=== PATIENT | female | born 1960 | race Caucasian/White ===

== ENCOUNTER 2017-06-02 10:49 | Emergency (ER) | payer MEDICARE, MEDICAID ==
[2017-06-02] MEDS ORDERED: Cyclobenzaprine 10 MG Tab PO ONE (11:20)
[2017-06-02] MEDS ORDERED: Ketorolac 60 MG/2 ML SDV IM ONE (11:20)
--- NOTE | 2017-06-02 11:24 | EDM.PDOC ---
ED HPI GENERAL MEDICAL PROBLEM - General Chief Complaint: Back Pain or Injury Stated Complaint: BACK PAIN ALSO DIZZY Time Seen by Provider: 06/02/17 11:21 Source of Information: Reports: Patient, Old Records, RN Notes Reviewed History Limitations: Reports: No Limitations - History of Present Illness INITIAL COMMENTS - FREE TEXT/NARRATIVE: 56-year-old female presents emergency department day complaint of low back pain , she has a history of lumbar surgery has been dealing with chronic back pain for several years follows with the pain clinic for new pain clinic in [facility] review of records reveals she was on morphine 3 times a day has been weaned down to 1 time a day is trying to get a consultation with a spine surgeon. She states her pain is worse today she is been out of her morphine for the last couple of days no loss of bowel or bladder no nausea vomiting does feel dizzy Lower Back Pain Score (Numeric/FACES): 9 - Related Data Allergies Allergy/AdvReac Type Severity Reaction Status Date / Time gabapentin AdvReac Delusions Verified 05/06/16 08:18 nalbuphine [From Nubain] AdvReac Hypertensio Verified 05/06/16 08:18 n Home Meds: Home Meds Calcium Carbonate/Vitamin D3 [Calcium 600 + Vit D 200] 1 each PO BID 05/05/16 [ History] FLUoxetine HCl [Prozac] 60 mg PO DAILY 05/05/16 [History] Fenofibrate 160 mg PO DAILY 05/05/16 [History] Furosemide [Lasix] 40 mg PO DAILY 05/05/16 [History] Insulin Degludec [Tresiba Flextouch U-100] 33 unit SQ DAILY 05/05/16 [History] Levothyroxine Sodium [Synthroid] 175 mcg PO DAILY 05/05/16 [History] Multivitamin [Multi-Vitamin Daily] 1 each PO DAILY 05/05/16 [History] Omeprazole Magnesium [Prilosec Otc] 20 mg PO DAILY 05/05/16 [History] Polyethylene Glycol 3350 [MiraLAX] 17 gm PO DAILY PRN 05/05/16 [History] SitaGLIPtin [Januvia] 100 mg PO DAILY 05/05/16 [History] Topiramate [Topamax] 50 mg PO DAILY 05/05/16 [History] atorvaSTATin [Lipitor] 80 mg PO BEDTIME 05/05/16 [History] Diazepam [Valium] 5 mg PO BID PRN 06/02/17 [History] Ondansetron HCl [Zofran] 4 mg PO TID PRN 06/02/17 [History] Topiramate [Topamax] 50 mg PO BEDTIME 06/02/17 [History] Zolpidem Tartrate [Ambien] 5 mg PO BEDTIME 06/02/17 [History] Past Medical History Cardiovascular History: Reports: High Cholesterol, Hypertension Gastrointestinal History: Reports: Chronic Constipation, Other (See Below) Other Gastrointestinal History: reflux necrotizing fasciitis(hospitalized for aprox 1 year) 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: Reports: , Spontaneous Musculoskeletal History: Reports: Fracture, Other (See Below) Other Musculoskeletal History: clavicle chronic painsyndrome Neurological History: Reports: CVA, Neuropathy, Diabetic Psychiatric History: Reports: Anxiety, Depression Endocrine/Metabolic History: Reports: Diabetes, Type II, Hypothyroidism - Infectious Disease History Infectious Disease History: Reports: Chicken Pox - Past Surgical History Female Surgical History: Reports: Hysterectomy, Salpingo-Oophorectomy Musculoskeletal Surgical History: Reports: Other (See Below) Social & Family History - Tobacco Use Smoking Status *Q: Current Every Day Smoker Years of Tobacco use: 30 Packs/Tins Daily: 1 Used Tobacco, but Quit: No Second Hand Smoke Exposure: Yes - Caffeine Use Caffeine Use: Reports: Coffee, Energy Drinks, Tea - Recreational Drug Use Recreational Drug Use: Yes ED ROS GENERAL - Review of Systems Review Of Systems: See Below Constitutional: Reports: No Symptoms Respiratory: Reports: No Symptoms Cardiovascular: Reports: No Symptoms GI/Abdominal: Reports: No Symptoms Musculoskeletal: Reports: Back Pain Neurological: Reports: No Symptoms ED EXAM,LOWER BACK PAIN/INJURY - Physical Exam Exam: See Below Exam Limited By: No Limitations General Appearance: Alert, WD/WN, No Apparent Distress Respiratory/Chest: No Respiratory Distress Back Exam: Normal Inspection, Decreased Range of Motion, Muscle Spasm, Paraspinal Tenderness. No: CVA Tenderness (R), CVA Tenderness (L), Vertebral Tenderness Course - Vital Signs Last Recorded V/S: Last Vital Signs Temp 96.7 F 06/02/17 11:05 Pulse 85 06/02/17 11:05 Resp 18 06/02/17 11:05 BP 184/76 H 06/02/17 11:05 Pulse Ox 99 06/02/17 11:05 - Orders/Labs/Meds Labs: Laboratory Tests 06/02/17 06/02/17 Range/Units 11:37 11:37 Urine Color Yellow Urine Appearance Slightly cloudy Urine pH 7.0 (4.5-8.0) Ur Specific [place] 1.010 (1.008-1.030) Urine Protein Negative (NEGATIVE) mg/dL Urine Glucose (UA) Normal (NEGATIVE) mg/dL Urine Ketones Negative (NEGATIVE) mg/dL Urine Occult Blood Negative (NEGATIVE) Urine Nitrite Negative (NEGATIVE) Urine Bilirubin Negative (NEGATIVE) Urine Urobilinogen Normal (NORMAL) mg/dL Ur Leukocyte Esterase Negative (NEGATIVE) Urine RBC 0-5 (0-5) Urine WBC 0-5 (0-5) Ur Epithelial Cells Rare Amorphous Sediment Not seen Urine Bacteria Rare Urine Mucus Not seen Urine Opiates Screen Negative (NEGATIVE) Ur Oxycodone Screen Negative (NEGATIVE) Urine Methadone Screen Negative (NEGATIVE) Ur Propoxyphene Screen Negative (NEGATIVE) Ur Barbiturates Screen Negative (NEGATIVE) Ur Tricyclics Screen Negative (NEGATIVE) Ur Phencyclidine Scrn Negative (NEGATIVE) Ur Amphetamine Screen Negative (NEGATIVE) U Methamphetamines Scrn Negative (NEGATIVE) Urine MDMA Screen Negative (NEGATIVE) U Benzodiazepines Scrn Positive H (NEGATIVE) U Cocaine Metab Screen Negative (NEGATIVE) U Marijuana (THC) Screen Negative (NEGATIVE) Meds: Medications Discontinued Medications Generic Name Dose Route Start Last Admin Trade Name Freq PRN Reason Stop Dose Admin Cyclobenzaprine HCl 10 mg 06/02/17 11:20 06/02/17 11:28 Flexeril PO 06/02/17 11:21 10 mg ONETIME ONE Administration Hydromorphone HCl 1 mg 06/02/17 12:11 06/02/17 12:21 Dilaudid IM 06/02/17 12:12 1 mg ONETIME ONE Administration Ketorolac Tromethamine 60 mg 06/02/17 11:20 06/02/17 11:27 Toradol IM 06/02/17 11:21 60 mg ONETIME ONE Administration Departure - Departure Time of Disposition: 12:52 Disposition: Home, Self-Care 01 Condition: Fair Clinical Impression: Back pain Qualifiers: Back pain location: low back pain Chronicity: chronic Back pain laterality: bilateral Sciatica presence: without sciatica Qualified Code(s): M54.5 - Low back pain; G89.29 - Other chronic pain; G89.29 - Other chronic pain - Discharge Information Referrals: Adalid Lee PA-C [Primary Care Provider] - Forms: ED Department Discharge Additional Instructions: Please keep your follow-up appointment with your pain care provider - Assessment/Plan Plan: Assessment Acuity = chronic Site and laterality = exacerbation of back pain Etiology = unknown etiology Manifestations = none Location of injury = Home Lab values = none Plan She had some improvement combination Flexeril, Dilaudid and Toradol her pain has improved temporarily she is to follow-up with her pain care physician next week Patient was in agreement with the plan all questions were answered, they were instructed to return to the emergency department or call for worsening symptoms. This note was dictated using [employer] voice recognition software please call with any questions.
[2017-06-02 11:33] VITALS: BP 184/76
[2017-06-02] MEDS ORDERED: HYDROmorphone 1 MG/ML Syringe IM ONE (12:11)
== END 2017-06-02 13:02 | disposition home or self-care (01) ==
LOC: JP.ED 10:49
DX: G89.29 Other chronic pain (principal); M54.5 Low back pain; E11.9 Type 2 diabetes mellitus without complications; E11.40 Type 2 diabetes mellitus with diabetic neuropathy, unspecified; F17.210 Nicotine dependence, cigarettes, uncomplicated; Z88.8 Allergy status to other drugs, medicaments and biological substances; Z79.4 Long term (current) use of insulin; Z79.899 Other long term (current) drug therapy
CPT/HCPCS: 80305; 81001; 96372; 99283; 99284; A9270; J1170; J1885

== ENCOUNTER 2017-08-01 06:35 | Inpatient (IN) | payer MEDICARE, MEDICAID ==
[2017-08-01] MEDS ORDERED: Povidone-Iodine 10% Soln 118.25 ML Bottle ONE (06:41)
[2017-08-01] MEDS ORDERED: Thrombin (Bovine) 5,000 Unit Kit ONE (06:41)
[2017-08-01] MEDS ORDERED: Acetaminophen 500 MG Tab PO ONE (07:00)
[2017-08-01] MEDS: Scopolamine 1.5 MG Transdermal Patch TOP SCH (07:28)
[2017-08-01] MEDS ORDERED: ceFAZolin 2 GM in Premix Bag 1 BAG IV ONE (07:30)
[2017-08-01] MEDS ORDERED: HYDROmorphone 1 MG/ML Syringe IM ONE (07:40)
[2017-08-01] MEDS: Lactated Ringers 1,000 ML IV SCH (07:42)
[2017-08-01] MEDS ORDERED: HYDROmorphone/Normal Saline 15 MG/30 ML PCA IV PRN (07:45)
[2017-08-01] MEDS ORDERED: Naloxone 0.4 MG/ML SDV IVPUSH PRN (07:45)
[2017-08-01] MEDS ORDERED: Naloxone 0.4 MG/ML SDV IV PRN (07:49)
[2017-08-01] MEDS ORDERED: Ondansetron 4 MG/2 ML SDV ONE (09:10)
[2017-08-01] MEDS ORDERED: Midazolam 1 MG/ML 2 ML SDV ONE (09:10)
[2017-08-01] MEDS ORDERED: Dexamethasone 4 MG/ML SDV ONE (09:10)
[2017-08-01] MEDS ORDERED: Rocuronium 50 MG/5 ML Vial ONE (09:10)
[2017-08-01] MEDS ORDERED: Propofol 200 MG/20 ML SDV ONE (09:10)
[2017-08-01] MEDS ORDERED: Succinylcholine/Normal Saline 200 MG/10 ML Syringe ONE (09:10)
[2017-08-01] MEDS ORDERED: fentaNYL 250 MCG/5 ML SDV ONE ×2 (09:10→10:58)
[2017-08-01] MEDS ORDERED: Neostigmine Methylsulfate 1 MG/ML 5 ML Syringe ONE (09:14)
[2017-08-01] MEDS ORDERED: Ketamine 500 MG/5 ML MDV IV SCH (09:35)
[2017-08-01] MEDS ORDERED: Meropenem 500 MG SDV ONE (10:46)
[2017-08-01] MEDS ORDERED: Linezolid 200 MG/100 ML Bag IRR ONE (10:53)
[2017-08-01] MEDS ORDERED: Lactated Ringers 1,000 ML ONE (11:46)
[2017-08-01] MEDS ORDERED: Ondansetron 4 MG/2 ML SDV IVPUSH PRN (14:12)
[2017-08-01] MEDS ORDERED: hydrOXYzine HCl 100 MG/2 ML SDV IM PRN (14:12)
[2017-08-01] MEDS ORDERED: hydrOXYzine HCl 25 MG Tab PO PRN (14:12)
[2017-08-01] MEDS ORDERED: Albuterol/Ipratropium 3.0-0.5 MG/3 ML Neb Soln INH PRN (14:13)
[2017-08-01] MEDS ORDERED: Glucose Gel 15 GM in 37.5 GM Tube PO PRN (14:15)
[2017-08-01] MEDS ORDERED: Glucagon,Human Recombinant 1 MG Vial IM PRN (14:15)
[2017-08-01] MEDS ORDERED: 50% Dextrose in Water 50 ML Syringe IVPUSH PRN (14:15)
[2017-08-01] MEDS: Albuterol/Ipratropium 3.0-0.5 MG/3 ML Neb Soln INH SCH ×2 (15:16→20:42)
[2017-08-01] MEDS: VERIFY SCOPOLAMINE PATCH TOP SCH (16:50)
[2017-08-01] MEDS: FLUoxetine 20 MG Cap PO SCH (16:52)
[2017-08-01] MEDS: Dextrose 5%-Lactated Ringers 1,000 ML IV SCH ×2 (16:52→23:22)
[2017-08-01] MEDS: ceFAZolin 2 GM in Sodium Chloride 0.9% 50 ML IV SCH (16:52)
[2017-08-01] MEDS: Pantoprazole 40 MG Vial IV SCH (16:52)
[2017-08-01] MEDS: Topiramate 25 MG Tab PO SCH (20:42)
[2017-08-01] MEDS ORDERED: Insulin Detemir 100 Units/ML 3 ML Pen SUBCUT SCH (21:00)
--- NOTE | 2017-08-01 21:30 | OR ---
DATE OF PROCEDURE: 08/01/2017 PREOPERATIVE DIAGNOSES: 1. Lumbar foraminal stenosis, L4-5. 2. Spondylolisthesis, L4-5. 3. Lumbar radiculopathy, L4-5. POSTOPERATIVE DIAGNOSES: 1. Lumbar foraminal stenosis, L4-5. 2. Spondylolisthesis, L4-5. 3. Lumbar radiculopathy, L4-5. PROCEDURE: Anterior lumbar interbody fusion, L4-5. CO-SURGEON: Ahmet Wilson MD. ANESTHESIA: General endotracheal intubation. FLUIDS: Lactated Ringer solution. ESTIMATED BLOOD LOSS: 200 mL. COMPLICATION: None. SPECIMEN: None. DISCHARGE DISPOSITION: Stable to PACU. INSTRUMENTATION: Globus Magnify 8 to 11 8 degree implant with one 30 mm screw into L4 and two 20 mm screws into L5. INDICATIONS FOR THE PROCEDURE: The patient was seen preoperatively in the clinic. She had a symptomatic lumbar spondylolisthesis with low back pain and radicular symptoms. Preoperative imaging confirmed the above-mentioned diagnosis. Risks and benefits of the procedure were explained to the patient. Informed consent was obtained. The patient failed nonoperative treatment. DETAILS OF PROCEDURE: The patient was seen preoperatively by myself and the anesthesia staff in the preop holding area where the operative site was marked. She was brought to the operative suite by Anesthesia staff where general anesthesia was administered. A time-out was called identifying the correct patient, the correct procedure, the correct site, and antibiotics had been in with appropriate period of time. Please see Dr. Ahmet Wilson's note for exposure. After adequate exposure was obtained, I used Bovie electrocautery to go through the anterior annulus and then used a deep 15 blade to go through the annular fibers as well. I then used a narrow Thayer to go along the endplates of the inferior endplate of L4 and superior endplate of L5 and then used Kerrison rongeurs as well as curettes to remove the annulus as well as any disk material. I then used a 9 spacer and inserted that and confirmed the depth of the spacer on lateral x-ray and also evaluated my medial to lateral position. The patient was scoliotic so actually she did tilt to the left anteriorly aiding in our exposure. I did undermine some of the disk underneath the lateral right retractor. I then packed my implant with Signify bone graft and then inserted my spacer and then under direct fluoroscopic visualization expanded it. This provided good distraction. The posterior aspect of the implant was just shy of the neural foramen and I confirmed that we had good position on my AP view. I then awl'd, tapped, and placed my screws as mentioned above and took final films. Please see Dr. Ahmet Wilson's notes for closure. Zen Wilson DO /[id number]
[2017-08-02] MEDS: ceFAZolin 2 GM in Sodium Chloride 0.9% 50 ML IV SCH ×2 (01:01→08:14)
[2017-08-02] MEDS: Dextrose 5%-Lactated Ringers 1,000 ML IV SCH ×3 (05:39→22:16)
[2017-08-02] MEDS: Albuterol/Ipratropium 3.0-0.5 MG/3 ML Neb Soln INH SCH ×4 (07:18→21:06)
[2017-08-02] MEDS: FLUoxetine 20 MG Cap PO SCH (08:15)
[2017-08-02] MEDS: Acetaminophen/oxyCODONE 325-5 MG Tab PO PRN ×4 (08:47→21:06)
[2017-08-02] MEDS: Insulin Detemir 100 Units/ML 3 ML Pen SUBCUT SCH (08:48)
[2017-08-02] MEDS: Cyclobenzaprine 10 MG Tab PO PRN ×2 (11:19→19:28)
[2017-08-02] MEDS: Insulin Aspart 100 Units/ML 3 ML Pen SUBCUT PRN ×3 (12:45→21:09)
--- NOTE | 2017-08-02 13:26 | PN ---
DATE OF SERVICE: 08/02/2017 SUBJECTIVE: Kandis is postop day one. She states her pain is controlled. She has been up in the chair and has walked. Vital signs have been stable. Blood sugars have been 218, 157. She was on Levemir 33 units but decreased it because she was having hypoglycemic reactions. REVIEW OF SYSTEMS: Remainder of review of systems negative for any pertinent positives and negatives. OBJECTIVE: GENERAL: Kandis Rodriguez is a 56-year-old female. She is sleepy, pain is controlled. VITAL SIGNS: TPR 98.5, 92, 16, blood pressure is 95/52. Oral intake ice chips. Urine output via Hernandez catheter 674. CHEVY drain has put out about 20 mL of a dark red drainage. O2 saturations have been in the lower 90s with 2 L of O2. HEENT: Negative. NECK: Supple. HEART: Regular rate and rhythm. LUNGS: Reveal decreased breath sounds bilaterally. ABDOMEN: Dressings dry and intact. CHEVY drain intact. Abdominal binder is on. EXTREMITIES: Without peripheral edema. ASSESSMENT: Anterior lumbar interbody fusion for L4 and L5, repair of avulsion side left lav secondary to inflammation adjacent to lymph nodes for evulsion for lumbar foraminal stenosis, L4-L5, spondylolisthesis, L4-L5, and lumbar radiculopathy, L4 and L5. Date of surgery is 08/01/2017. PLAN: 1. Discontinue Hernandez catheter. 2. Consistent carb diet 1800 to 2200. 3. Discontinue ORE TRIMMER and continuous pulse ox. 4. Percocet 5/325 mg 1 to 2 every 4 hours p.r.n. pain. 5. Check blood sugars q.i.d. 6. Levemir 30 units at bedtime. 7. Senna Plus 2 tabs p.o. daily. 8. Decrease IV to 100 mL per hour. 9. Good pulmonary toilet. 10.We will evaluate p.r.n. or in a.m. Lia Rojo PA-C /[id number]
[2017-08-02] MEDS: VERIFY SCOPOLAMINE PATCH TOP SCH (13:28)
[2017-08-02] MEDS: Pantoprazole 40 MG Vial IV SCH (16:48)
[2017-08-02] MEDS: Topiramate 25 MG Tab PO SCH (21:20)
[2017-08-02] MEDS: Lactated Ringers 1,000 ML IV SCH (22:10)
[2017-08-02] MEDS ORDERED: Diazepam 5 MG Tab PO PRN (22:21)
[2017-08-03] MEDS: Acetaminophen/oxyCODONE 325-5 MG Tab PO PRN ×5 (02:45→21:01)
[2017-08-03] MEDS ORDERED: FLU Vacc QS 2017-18 (36mos UP)/PF 60 MCG/0.5 ML Syringe IM ONE ×3 (04:15→17:00)
[2017-08-03] MEDS: Albuterol/Ipratropium 3.0-0.5 MG/3 ML Neb Soln INH SCH ×4 (07:29→20:54)
[2017-08-03] MEDS ORDERED: Ibuprofen 400 MG Tab PO PRN (07:30)
--- NOTE | 2017-08-03 07:55 | PCM.SURGPN ---
- General Info Date of Service: 08/03/17 Date of Surgery/Procedure: 08/01/17 POD#: 2 Functional Status: Reports: Pain Controlled, Tolerating Diet, Ambulating, Urinating, New Symptoms (Abdominal pain), Incentive Spirometry - Review of Systems General: Reports: Fever Pulmonary: Reports: Shortness of Breath, Cough, Sputum Cardiovascular: Reports: No Symptoms Gastrointestinal: Reports: Abdominal Pain Genitourinary: Reports: No Symptoms Musculoskeletal: Reports: Back Pain Skin: Reports: No Symptoms Neurological: Reports: No Symptoms Psychiatric: Reports: No Symptoms - Patient Data Vitals - Most Recent: Last Vital Signs Temp 98.9 F 08/03/17 07:17 Pulse 94 08/03/17 07:30 Resp 18 08/03/17 07:17 BP 128/64 08/03/17 07:17 Pulse Ox 95 08/03/17 07:30 Weight - Most Recent: 141 lb 15.996 oz I&O - Last 24 Hours: Intake & Output 08/02/17 08/03/17 08/03/17 22:59 06:59 14:59 Intake Total 715 2835 Output Total 1327 3 Balance -612 2832 Med Orders - Current: Current Medications Albuterol/Ipratropium (Duoneb 3.0-0.5 Mg/3 Ml) 3 ml INH QIDRT [facility] Last Admin: 08/03/17 07:29 Dose: 3 ml Albuterol/Ipratropium (Duoneb 3.0-0.5 Mg/3 Ml) 3 ml INH ASDIRECTED PRN PRN Reason: * Cyclobenzaprine HCl (Flexeril) 10 mg PO Q6H PRN PRN Reason: Muscle Spasm Last Admin: 08/02/17 19:28 Dose: 10 mg Dextrose (Glutose 15) 15 gm PO ASDIRECTED PRN PRN Reason: HYPOGLYCEMIA Dextrose/Water (Dextrose 50% In Water) 50 ml IVPUSH ASDIRECTED PRN PRN Reason: HYPOGLYCEMIA Diazepam (Valium.) 10 mg PO BID PRN PRN Reason: Pain Fluoxetine HCl (Prozac) 60 mg PO DAILY [facility] Last Admin: 08/02/17 08:15 Dose: 60 mg Glucagon (Glucagen) 1 mg IM ASDIRECTED PRN PRN Reason: HYPOGLYCEMIA Hydroxyzine HCl (Vistaril) 100 mg IM Q4H PRN PRN Reason: Pain Hydroxyzine HCl (Atarax) 100 mg PO Q4H PRN PRN Reason: Pain Last Admin: 08/02/17 22:17 Dose: 100 mg Dextrose/Lactated Ringer's (Dextrose 5%-Lactated Ringers) 1,000 mls @ 100 mls/ hr IV ASDIRECTED [facility] Last Admin: 08/02/17 22:16 Dose: 100 mls/hr Ibuprofen (Motrin) 400 mg PO Q6H PRN PRN Reason: Pain/Fever Influenza Virus Vaccine (Fluzone Quad 2998-6141) 60 mcg IM .ONCE ONE Stop: 08/03/17 10:01 Insulin Aspart (Novolog) 0 unit SUBCUT ASDIRECTED PRN; Protocol PRN Reason: LOW CORRECTIONAL DOSE Last Admin: 08/02/17 21:09 Dose: 1 unit Insulin Detemir (Levemir) 30 unit SUBCUT DAILY [facility] Last Admin: 08/02/17 08:48 Dose: 30 units Levothyroxine Sodium (Synthroid) 150 mcg PO DAILY@0730 [facility] Naloxone HCl (Narcan) 0.1 mg IV ASDIRECTED PRN PRN Reason: decreased respiratory rate Verify Scopolamine (Patch) 0 each TOP DAILY [facility] Last Admin: 08/02/17 13:28 Dose: Not Given Ondansetron HCl (Zofran) 4 mg IVPUSH Q4H PRN PRN Reason: Nausea Oxycodone/Acetaminophen (Percocet 325-5 Mg) 1 - 2 tab PO Q4H PRN PRN Reason: paiin Last Admin: 08/03/17 07:21 Dose: 2 tab Pantoprazole Sodium (Protonix) 40 mg PO Q24H [facility] Scopolamine (Transderm-Scop) 1.5 mg TOP Q72H [facility] Last Admin: 08/01/17 07:28 Dose: 1.5 mg Senna/Docusate Sodium (Senna Plus) 2 tab PO DAILY [facility] Last Admin: 08/02/17 11:13 Dose: 2 tab Topiramate (Topamax) 50 mg PO BEDTIME [facility] Last Admin: 08/02/17 21:20 Dose: 50 mg Discontinued Medications Acetaminophen (Tylenol Extra Strength) 1,000 mg PO ONETIME ONE Stop: 08/01/17 07:01 Last Admin: 08/01/17 07:28 Dose: 1,000 mg Dexamethasone (Dexamethasone) Confirm Administered Dose 4 mg .ROUTE .STK-MED ONE Stop: 08/01/17 09:11 Fentanyl (Sublimaze) Confirm Administered Dose 250 mcg .ROUTE .STK-MED ONE Stop: 08/01/17 09:11 Fentanyl (Sublimaze) Confirm Administered Dose 250 mcg .ROUTE .STK-MED ONE Stop: 08/01/17 10:59 Glycopyrrolate () Confirm Administered Dose 1 mg .ROUTE .STK-MED ONE Stop: 08/01/17 09:15 Hydromorphone HCl (Dilaudid) 1 mg IM ONETIME ONE Stop: 08/01/17 07:41 Last Admin: 08/01/17 07:48 Dose: 1 mg Hydromorphone HCl (Dilaudid Relocation Coordinator 15 Mg In Ns 30 Ml) 0 mg IV ASDIRECTED PRN; Protocol PRN Reason: Pain Last Admin: 08/01/17 08:02 Dose: 0.3 mg Lactated Ringer's (Ringers, Lactated) 1,000 mls @ 0 mls/hr IV ASDIRECTED [facility] PRN Reason: KVO Last Infusion: 08/02/17 22:10 Dose: Infused Ketamine HCl 100 mg/ Sodium (Chloride) 100 mls @ 14.88 mls/hr IV ASDIRECTED [facility] PRN Reason: 5 MCG/KG/MIN Linezolid (Zyvox) Confirm Administered Dose 100 mls @ as directed .ROUTE .ST- MED ONE Stop: 08/01/17 06:41 Cefazolin Sodium/Dextrose 2 gm (/ Premix) 50 mls @ 100 mls/hr IV ONETIME ONE Stop: 08/01/17 07:59 Last Admin: 08/01/17 10:01 Dose: 100 mls/hr Propofol (Diprivan 100 Ml) Confirm Administered Dose 100 mls @ as directed .ROUTE .STK-MED ONE Stop: 08/01/17 09:11 Lactated Ringer's (Ringers, Lactated) Confirm Administered Dose 1,000 mls @ as directed .ROUTE .STK-MED ONE Stop: 08/01/17 11:47 Dextrose/Lactated Ringer's (Dextrose 5%-Lactated Ringers) 1,000 mls @ 175 mls/ hr IV ASDIRECTED [facility] Last Admin: 08/02/17 05:39 Dose: 175 mls/hr Cefazolin Sodium 2 gm/ Sodium (Chloride) 50 mls @ 100 mls/hr IV Q8H [facility] Stop: 08/02/17 09:29 Last Admin: 08/02/17 08:14 Dose: 100 mls/hr Insulin Detemir (Levemir) 25 unit SUBCUT BEDTIME [facility] Last Admin: 08/01/17 20:46 Dose: 25 units Ketamine HCl (Ketalar) 25 mg IV ASDIRECTED [facility] Levothyroxine Sodium 100 mcg/ (Levothyroxine Sodium 75 mcg) 175 mcg PO DAILY@ 0730 [facility] Last Admin: 08/03/17 07:23 Dose: Not Given Linezolid (Zyvox) 200 mg IRR .STK-MED ONE Stop: 08/01/17 10:54 Last Admin: 08/01/17 10:53 Dose: 200 mg Meropenem (Merrem) Confirm Administered Dose 500 mg .ROUTE .STK-MED ONE Stop: 08/01/17 10:47 Last Admin: 08/01/17 10:53 Dose: 500 mg Midazolam HCl (Versed 1 Mg/Ml) Confirm Administered Dose 2 mg .ROUTE .STK-MED ONE Stop: 08/01/17 09:11 Neostigmine Methylsulfate (Neostigmine) Confirm Administered Dose 5 mg .ROUTE .STK-MED ONE Stop: 08/01/17 09:15 Ondansetron HCl (Zofran) Confirm Administered Dose 4 mg .ROUTE .STK-MED ONE Stop: 08/01/17 09:11 Pantoprazole Sodium (Protonix Iv) 40 mg IV Q24H [facility] Last Admin: 08/02/17 16:48 Dose: 40 mg Povidone Iodine (Betadine 10% Soln) Confirm Administered Dose 1 ml .ROUTE .STK- MED ONE Stop: 08/01/17 06:42 Propofol (Diprivan 20 Ml) Confirm Administered Dose 200 mg .ROUTE .STK-MED ONE Stop: 08/01/17 09:11 Rocuronium [place] (Zemuron) Confirm Administered Dose 50 mg .ROUTE .STK-MED ONE Stop: 08/01/17 09:11 Succinylcholine Chloride (Succinylcholine In Ns Pf) Confirm Administered Dose 200 mg .ROUTE .STK-MED ONE Stop: 08/01/17 09:11 Thrombin (Thrombin-Jmi) Confirm Administered Dose 15,000 unit .ROUTE .STK-MED ONE Stop: 08/01/17 06:42 - Exam Wound/Incisions: Healing Well General: Alert, Oriented, No Acute Distress Neck: Supple Lungs: Other (Bronchial breath sounds of left lower lobe; shallow breaths throughout) Cardiovascular: Regular Rate, Regular Rhythm, No Murmurs GI/Abdominal Exam: Normal Bowel Sounds Skin: Warm, Moist - Problem List Review Problem List Initiated/Reviewed/Updated: Yes - My Orders Last 24 Hours: Active Orders 24 hr Category Date Time Status May Shower [RC] ASDIRECTED Care 08/03/17 07:30 Active Consistent Carbohydrate Diet [DIET] Diet 08/02/17 Breakfast Active Chest 2V [CR] Routine Exams 08/03/17 07:31 Ordered GLUCOSE POC LAB TO COLLECT [POC] QIDACANDBED Lab 08/03/17 11:30 Ordered GLUCOSE POC LAB TO COLLECT [POC] QIDACANDBED Lab 08/03/17 16:30 Ordered GLUCOSE POC LAB TO COLLECT [POC] QIDACANDBED Lab 08/03/17 21:00 Ordered Acetaminophen/oxyCODONE [Percocet 325-5 MG] Med 08/02/17 07:40 Active 1 - 2 tab PO Q4H PRN Alogliptin Benzoate [Alogliptin] Med 08/02/17 09:00 Active 25 mg PO DAILY Dextrose 5%-Lactated Ringers 1,000 ml Med 08/02/17 07:39 Active IV ASDIRECTED Diazepam [Valium] Med 08/02/17 22:21 Active 10 mg PO BID PRN Docusate Sodium/Sennosides [Senna Plus] Med 08/02/17 09:00 Active 2 tab PO DAILY FLU Vacc [id number] 36Mos UP/PF [Fluzone Quad 3993-9461] Med 08/03/17 10:00 Once 60 mcg IM .ONCE ONE Ibuprofen [Motrin] Med 08/03/17 07:30 Active 400 mg PO Q6H PRN Insulin Detemir [Levemir] Med 08/02/17 09:00 Active 30 unit SUBCUT DAILY Levothyroxine [Synthroid] Med 08/03/17 07:45 Active 150 mcg PO DAILY@0730 Pantoprazole [ProTONIX] Med 08/03/17 16:00 Active 40 mg PO Q24H Remove Dressing [OM.PC] Routine Oth 08/03/17 07:30 Ordered Medication Orders Albuterol/Ipratropium (Duoneb 3.0-0.5 Mg/3 Ml) 3 ml INH QIDRT [facility] Last Admin: 08/03/17 07:29 Dose: 3 ml Admin: 08/02/17 21:06 Dose: 3 ml Admin: 08/02/17 14:35 Dose: 3 ml Admin: 08/02/17 11:00 Dose: 3 ml Admin: 08/02/17 07:18 Dose: 3 ml Admin: 08/01/17 20:42 Dose: 3 ml Admin: 08/01/17 15:16 Dose: 3 ml Albuterol/Ipratropium (Duoneb 3.0-0.5 Mg/3 Ml) 3 ml INH ASDIRECTED PRN PRN Reason: * Cyclobenzaprine HCl (Flexeril) 10 mg PO Q6H PRN PRN Reason: Muscle Spasm Last Admin: 08/02/17 19:28 Dose: 10 mg Admin: 08/02/17 11:19 Dose: 10 mg Dextrose (Glutose 15) 15 gm PO ASDIRECTED PRN PRN Reason: HYPOGLYCEMIA Dextrose/Water (Dextrose 50% In Water) 50 ml IVPUSH ASDIRECTED PRN PRN Reason: HYPOGLYCEMIA Diazepam (Valium.) 10 mg PO BID PRN PRN Reason: Pain Fluoxetine HCl (Prozac) 60 mg PO DAILY [facility] Last Admin: 08/02/17 08:15 Dose: 60 mg Admin: 08/01/17 16:52 Dose: 60 mg Glucagon (Glucagen) 1 mg IM ASDIRECTED PRN PRN Reason: HYPOGLYCEMIA Hydroxyzine HCl (Vistaril) 100 mg IM Q4H PRN PRN Reason: Pain Hydroxyzine HCl (Atarax) 100 mg PO Q4H PRN PRN Reason: Pain Last Admin: 08/02/17 22:17 Dose: 100 mg Dextrose/Lactated Ringer's (Dextrose 5%-Lactated Ringers) 1,000 mls @ 100 mls/ hr IV ASDIRECTED [facility] Last Admin: 08/02/17 22:16 Dose: 100 mls/hr Infusion: 08/02/17 22:16 Dose: 100 mls/hr Admin: 08/02/17 12:41 Dose: 100 mls/hr Ibuprofen (Motrin) 400 mg PO Q6H PRN PRN Reason: Pain/Fever Influenza Virus Vaccine (Fluzone Quad 9336-4410) 60 mcg IM .ONCE ONE Stop: 08/03/17 10:01 Insulin Aspart (Novolog) 0 unit SUBCUT ASDIRECTED PRN; Protocol PRN Reason: LOW CORRECTIONAL DOSE Last Admin: 08/02/17 21:09 Dose: 1 unit Admin: 08/02/17 16:49 Dose: 1 unit Admin: 08/02/17 12:45 Dose: 1 unit Insulin Detemir (Levemir) 30 unit SUBCUT DAILY [facility] Last Admin: 08/02/17 08:48 Dose: 30 units Levothyroxine Sodium (Synthroid) 150 mcg PO DAILY@0730 [facility] Naloxone HCl (Narcan) 0.1 mg IV ASDIRECTED PRN PRN Reason: decreased respiratory rate Verify Scopolamine (Patch) 0 each TOP DAILY [facility] Last Admin: 08/02/17 13:28 Dose: Admin: 08/01/17 16:50 Dose: Ondansetron HCl (Zofran) 4 mg IVPUSH Q4H PRN PRN Reason: Nausea Oxycodone/Acetaminophen (Percocet 325-5 Mg) 1 - 2 tab PO Q4H PRN PRN Reason: paiin Last Admin: 08/03/17 07:21 Dose: 2 tab Admin: 08/03/17 02:45 Dose: 2 tab Admin: 08/02/17 21:06 Dose: 2 tab Admin: 08/02/17 16:47 Dose: 2 tab Admin: 08/02/17 12:40 Dose: 2 tab Admin: 08/02/17 08:47 Dose: 2 tab Pantoprazole Sodium (Protonix) 40 mg PO Q24H [facility] Scopolamine (Transderm-Scop) 1.5 mg TOP Q72H [facility] Last Admin: 08/01/17 07:28 Dose: 1.5 mg Senna/Docusate Sodium (Senna Plus) 2 tab PO DAILY [facility] Last Admin: 08/02/17 11:13 Dose: 2 tab Topiramate (Topamax) 50 mg PO BEDTIME [facility] Last Admin: 08/02/17 21:20 Dose: 50 mg Admin: 08/01/17 20:42 Dose: 50 mg - Assessment Assessment (Free Text/Narrative):: Assessment and Plan: Kandis is a 56 yo female POD2 s/p ALIF of L4/L5. She spiked a fever last night to 101.1, which lasted about 5 hours and seems to have come down without any anti- pyretics. She appears somewhat short of breath, admits to coughing, and has bronchial breath sounds of her left lower lobe. These symptoms combined with post-operative fever raise concern for pneumonia. I would recommend a CXR and CBC to further evaluate this and treat appropriately. She has been using incentive spirometry regularly and duonebs have been ordered. This morning she reports new abdominal pain, which is partially alleviated with Percocet. We will add on scheduled Ibuprofen to further manage her pain. She is eating well and passing flatus. She is ambulating frequently. She is urinating well. She says her back pain is well-managed when she is laying down, but is "excruciating" when she sits up or walks around. - Plan Plan (Free Text/Narrative):: *See "Assessment" for Assessment and Plan
[2017-08-03] MEDS: Dextrose 5%-Lactated Ringers 1,000 ML IV SCH ×2 (09:10→18:43)
--- NOTE | 2017-08-03 09:24 | CR ---
Chest 2V HISTORY: Fever COMPARISON: None FINDINGS: Cardiac size and pulmonary vessels normal. No focal infiltrates or effusions. Impression: No acute pulmonary disease.
[2017-08-03] MEDS: Levothyroxine 50 MCG Tab PO SCH (09:55)
[2017-08-03] MEDS: FLUoxetine 20 MG Cap PO SCH (09:57)
[2017-08-03] MEDS: VERIFY SCOPOLAMINE PATCH TOP SCH (09:58)
[2017-08-03] MEDS: Insulin Detemir 100 Units/ML 3 ML Pen SUBCUT SCH (09:59)
--- NOTE | 2017-08-03 11:09 | PCM.PN ---
- General Info Date of Service: 08/03/17 Admission Dx/Problem (Free Text): patient is status postop day 2 of any left. She is doing very well. Patient states that she is having minimal pain at this time. She did run fevers last night up to 101. She continues to work with PT OT for strengthening today. Functional Status: Reports: Pain Controlled, Tolerating Diet, Ambulating, Urinating - Review of Systems General: Reports: No Symptoms - Patient Data Vitals - Most Recent: Last Vital Signs Temp 37.2 C 08/03/17 07:17 Pulse 97 08/03/17 10:49 Resp 18 08/03/17 07:17 BP 128/64 08/03/17 07:17 Pulse Ox 95 08/03/17 10:49 Weight - Most Recent: 141 lb 15.996 oz I&O - Last 24 Hours: Intake & Output 08/02/17 08/03/17 08/03/17 22:59 06:59 14:59 Intake Total 715 2835 Output Total 1327 3 Balance -612 2832 Med Orders - Current: Current Medications Albuterol/Ipratropium (Duoneb 3.0-0.5 Mg/3 Ml) 3 ml INH QIDRT [facility] Last Admin: 08/03/17 10:49 Dose: 3 ml Albuterol/Ipratropium (Duoneb 3.0-0.5 Mg/3 Ml) 3 ml INH ASDIRECTED PRN PRN Reason: * Cyclobenzaprine HCl (Flexeril) 10 mg PO Q6H PRN PRN Reason: Muscle Spasm Last Admin: 08/02/17 19:28 Dose: 10 mg Dextrose (Glutose 15) 15 gm PO ASDIRECTED PRN PRN Reason: HYPOGLYCEMIA Dextrose/Water (Dextrose 50% In Water) 50 ml IVPUSH ASDIRECTED PRN PRN Reason: HYPOGLYCEMIA Diazepam (Valium.) 10 mg PO BID PRN PRN Reason: Pain Fluoxetine HCl (Prozac) 60 mg PO DAILY [facility] Last Admin: 08/03/17 09:57 Dose: 60 mg Glucagon (Glucagen) 1 mg IM ASDIRECTED PRN PRN Reason: HYPOGLYCEMIA Hydroxyzine HCl (Vistaril) 100 mg IM Q4H PRN PRN Reason: Pain Hydroxyzine HCl (Atarax) 100 mg PO Q4H PRN PRN Reason: Pain Last Admin: 08/02/17 22:17 Dose: 100 mg Dextrose/Lactated Ringer's (Dextrose 5%-Lactated Ringers) 1,000 mls @ 100 mls/ hr IV ASDIRECTED [facility] Last Admin: 08/03/17 09:10 Dose: 100 mls/hr Ibuprofen (Motrin) 400 mg PO Q6H PRN PRN Reason: Pain/Fever Last Admin: 08/03/17 10:08 Dose: 400 mg Insulin Aspart (Novolog) 0 unit SUBCUT ASDIRECTED PRN; Protocol PRN Reason: LOW CORRECTIONAL DOSE Last Admin: 08/02/17 21:09 Dose: 1 unit Insulin Detemir (Levemir) 30 unit SUBCUT DAILY [facility] Last Admin: 08/03/17 09:59 Dose: 30 units Levothyroxine Sodium (Synthroid) 150 mcg PO DAILY@0730 [facility] Last Admin: 08/03/17 09:55 Dose: 150 mcg Naloxone HCl (Narcan) 0.1 mg IV ASDIRECTED PRN PRN Reason: decreased respiratory rate Verify Scopolamine (Patch) 0 each TOP DAILY [facility] Last Admin: 08/03/17 09:58 Dose: Not Given Ondansetron HCl (Zofran) 4 mg IVPUSH Q4H PRN PRN Reason: Nausea Oxycodone/Acetaminophen (Percocet 325-5 Mg) 1 - 2 tab PO Q4H PRN PRN Reason: paiin Last Admin: 08/03/17 07:21 Dose: 2 tab Pantoprazole Sodium (Protonix) 40 mg PO Q24H [facility] Scopolamine (Transderm-Scop) 1.5 mg TOP Q72H [facility] Last Admin: 08/01/17 07:28 Dose: 1.5 mg Senna/Docusate Sodium (Senna Plus) 2 tab PO DAILY [facility] Last Admin: 08/03/17 09:58 Dose: 2 tab Topiramate (Topamax) 50 mg PO BEDTIME [facility] Last Admin: 08/02/17 21:20 Dose: 50 mg Discontinued Medications Acetaminophen (Tylenol Extra Strength) 1,000 mg PO ONETIME ONE Stop: 08/01/17 07:01 Last Admin: 08/01/17 07:28 Dose: 1,000 mg Dexamethasone (Dexamethasone) Confirm Administered Dose 4 mg .ROUTE .[facility]-MED ONE Stop: 08/01/17 09:11 Fentanyl (Sublimaze) Confirm Administered Dose 250 mcg .ROUTE .[facility]-MED ONE Stop: 08/01/17 09:11 Fentanyl (Sublimaze) Confirm Administered Dose 250 mcg .ROUTE .ST-MED ONE Stop: 08/01/17 10:59 Glycopyrrolate () Confirm Administered Dose 1 mg .ROUTE .[facility] ONE Stop: 08/01/17 09:15 Hydromorphone HCl (Dilaudid) 1 mg IM ONETIME ONE Stop: 08/01/17 07:41 Last Admin: 08/01/17 07:48 Dose: 1 mg Hydromorphone HCl (Dilaudid Python Django Developer 15 Mg In Ns 30 Ml) 0 mg IV ASDIRECTED PRN; Protocol PRN Reason: Pain Last Admin: 08/01/17 08:02 Dose: 0.3 mg Lactated Ringer's (Ringers, Lactated) 1,000 mls @ 0 mls/hr IV ASDIRECTED [facility] PRN Reason: KVO Last Infusion: 08/02/17 22:10 Dose: Infused Ketamine HCl 100 mg/ Sodium (Chloride) 100 mls @ 14.88 mls/hr IV ASDIRECTED [facility] PRN Reason: 5 MCG/KG/MIN Linezolid (Zyvox) Confirm Administered Dose 100 mls @ as directed .ROUTE .[facility]- MED ONE Stop: 08/01/17 06:41 Cefazolin Sodium/Dextrose 2 gm (/ Premix) 50 mls @ 100 mls/hr IV ONETIME ONE Stop: 08/01/17 07:59 Last Admin: 08/01/17 10:01 Dose: 100 mls/hr Propofol (Diprivan 100 Ml) Confirm Administered Dose 100 mls @ as directed .ROUTE .ST-MED ONE Stop: 08/01/17 09:11 Lactated Ringer's (Ringers, Lactated) Confirm Administered Dose 1,000 mls @ as directed .ROUTE .[facility] ONE Stop: 08/01/17 11:47 Dextrose/Lactated Ringer's (Dextrose 5%-Lactated Ringers) 1,000 mls @ 175 mls/ hr IV ASDIRECTED [facility] Last Admin: 08/02/17 05:39 Dose: 175 mls/hr Cefazolin Sodium 2 gm/ Sodium (Chloride) 50 mls @ 100 mls/hr IV Q8H [facility] Stop: 08/02/17 09:29 Last Admin: 08/02/17 08:14 Dose: 100 mls/hr Influenza Virus Vaccine (Fluzone Quad [id number]) 60 mcg IM .ONCE ONE Stop: 08/03/17 10:01 Insulin Detemir (Levemir) 25 unit SUBCUT BEDTIME [facility] Last Admin: 08/01/17 20:46 Dose: 25 units Ketamine HCl (Ketalar) 25 mg IV ASDIRECTED [facility] Levothyroxine Sodium 100 mcg/ (Levothyroxine Sodium 75 mcg) 175 mcg PO DAILY@ 0730 [facility] Last Admin: 08/03/17 07:23 Dose: Not Given Linezolid (Zyvox) 200 mg IRR .STK-MED ONE Stop: 08/01/17 10:54 Last Admin: 08/01/17 10:53 Dose: 200 mg Meropenem (Merrem) Confirm Administered Dose 500 mg .ROUTE .STK-MED ONE Stop: 08/01/17 10:47 Last Admin: 08/01/17 10:53 Dose: 500 mg Midazolam HCl (Versed 1 Mg/Ml) Confirm Administered Dose 2 mg .ROUTE .STK-MED ONE Stop: 08/01/17 09:11 Neostigmine Methylsulfate (Neostigmine) Confirm Administered Dose 5 mg .ROUTE .STK-MED ONE Stop: 08/01/17 09:15 Ondansetron HCl (Zofran) Confirm Administered Dose 4 mg .ROUTE .STK-MED ONE Stop: 08/01/17 09:11 Pantoprazole Sodium (Protonix Iv) 40 mg IV Q24H [facility] Last Admin: 08/02/17 16:48 Dose: 40 mg Povidone Iodine (Betadine 10% Soln) Confirm Administered Dose 1 ml .ROUTE .STK- MED ONE Stop: 08/01/17 06:42 Propofol (Diprivan 20 Ml) Confirm Administered Dose 200 mg .ROUTE .STK-MED ONE Stop: 08/01/17 09:11 Rocuronium [place] (Zemuron) Confirm Administered Dose 50 mg .ROUTE .STK-MED ONE Stop: 08/01/17 09:11 Succinylcholine Chloride (Succinylcholine In Ns Pf) Confirm Administered Dose 200 mg .ROUTE .STK-MED ONE Stop: 08/01/17 09:11 Thrombin (Thrombin-Jmi) Confirm Administered Dose 15,000 unit .ROUTE .STK-MED ONE Stop: 08/01/17 06:42 - Exam General: Alert, Oriented Extremities: Normal Inspection, Normal Range of Motion, Non-Tender Peripheral Pulses: 2+: Dorsalis Pedis (L), Dorsalis Pedis (R) Skin: Warm, Dry Wound/Incisions: Healing Well, Dressing Dry and Intact Neurological: No New Focal Deficit - Problem List Review Problem List Initiated/Reviewed/Updated: Yes - Plan Plan:: at this time I do feel that the patient can be discharged from orthopedic services. She is doing very well orthopedically was. She is going to stay 1 more night due to fevers with the general surgeon. I do encourage her to continue to work with PT OT and continue to ambulate to get her bowels moving. Patient is to follow-up with orthopedic clinic in one month. She is not in need of physical therapy at home at this time. She'll notify us if she has any other issues.
[2017-08-03] MEDS: Insulin Aspart 100 Units/ML 3 ML Pen SUBCUT PRN (14:00)
[2017-08-03] MEDS ORDERED: Pantoprazole 40 MG Tab.CR PO SCH (16:00)
[2017-08-03] MEDS: Topiramate 25 MG Tab PO SCH (21:01)
[2017-08-04] MEDS: Acetaminophen/oxyCODONE 325-5 MG Tab PO PRN ×3 (01:57→09:18)
[2017-08-04] MEDS: Dextrose 5%-Lactated Ringers 1,000 ML IV SCH (03:49)
[2017-08-04] MEDS: Albuterol/Ipratropium 3.0-0.5 MG/3 ML Neb Soln INH SCH ×2 (07:23→10:59)
[2017-08-04 07:46] VITALS: BP 114/56
[2017-08-04] MEDS: Levothyroxine 50 MCG Tab PO SCH (09:19)
[2017-08-04] MEDS: FLUoxetine 20 MG Cap PO SCH (09:21)
[2017-08-04] MEDS: VERIFY SCOPOLAMINE PATCH TOP SCH (09:23)
[2017-08-04] MEDS: Insulin Detemir 100 Units/ML 3 ML Pen SUBCUT SCH (09:24)
[2017-08-04] MEDS: Scopolamine 1.5 MG Transdermal Patch TOP SCH (10:36)
--- NOTE | 2017-08-05 02:22 | DISCH ---
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 DISCHARGE DIAGNOSES: 1. Lumbar foraminal stenosis, L4-5. 2. Spondylolisthesis, L4-5. 3. Lumbar radiculopathy, L4-5. PROCEDURE: Anterior lumbar interbody fusion, L4-5. HISTORY: Kandis Rodriguez is a female with a symptomatic lumbar spondylolisthesis with low back pain and radicular symptoms. After preoperative evaluation and discussion of possible risks and possible complications, she wished to proceed with surgical procedure. HOSPITAL COURSE: Kandis had her surgery on 08/01/2017. She had no operative complications. On postop day #1, her Hernandez catheter was discontinued. She was started on a consistent carb diet. [employer] GUARD was discontinued. She was changed to oral pain medication Percocet. Her Levemir was restarted at 3 units at bedtime and she was started on stool softeners. On postop day #2, she did spike a temperature. She had a chest x-ray and it was negative. She continued throughout her hospital stay with physical therapy. Pain was well managed and activity was good. She was able to be discharged to home on 08/04/2017 without any complications. PHYSICAL EXAMINATION: GENERAL: Kandis Rodriguez is a 56-year-old female. Height is 5 feet 1.8 inches. Weight is 141 pounds. TPR is 97.5, 81, 16. Blood pressure 114/56. HEENT: Negative. NECK: Supple. HEART: Regular rate and rhythm without murmur, gallop, or rub. LUNGS: Clear to auscultation in all four angel. No wheezing, rales, or rhonchi. BACK: Incision looks good. Abdominal binder has been on. She has been wearing her back brace as directed. CHEVY drain is intact draining a light pink serosanguineous drainage. EXTREMITIES: Without peripheral edema. DISPOSITION: Discharged to home. CONDITION: Stable and improving. FOLLOWUP: 1. Followup appointment with Don Wilson MD on 08/09/2017 at 10:00 a.m. 2. Follow up with Stephanie Bonds [facility] on 08/31/2017 at 9:45 a.m. MEDICATIONS: New prescriptions; Percocet 5/325 mg 1 to 2 every 4 hours p.r.n. pain, #40, Flexeril 10 mg q.6 hours p.r.n. muscle spasms #30. She is to continue taking her ProAir inhaler 2 puffs 4 times a day, calcium carbonate 1 twice daily, Valium 5 mg b.i.d. p.r.n. anxiety, Prozac 60 mg oral, Flonase 2 sprays nasally in each nostril once daily, Lasix 40 mg daily, Tresiba 30 units subcu daily, Synthroid 150 mcg daily, multivitamin one daily, MiraLAX 17 g daily p.r.n., Zantac 150 mg oral daily, Januvia 100 mg oral daily, topiramate 50 mg oral at bedtime, zolpidem tartrate 5 mg oral at bedtime, Lipitor 80 mg at bedtime. DISCHARGE DIET: Diet after discharge, diabetic diet. ACTIVITY: Follow instructions from Dr. Zen Wilson's team on activity and lifting. Do not drive on pain medication. Shower/bathing, may shower. DISCHARGE INSTRUCTIONS: Notify provider if any fever, increased pain, nausea, or vomiting. Keep site clean and dry. Strip, empty, measure, and record CHEVY drain 4 times a day and bring the results to clinic appointments. Use incentive spirometer 10 times every hour while awake for 1 week.
== END 2017-08-04 12:06 | disposition home or self-care (01) | DRG 460 ==
LOC: JP.SDS 06:35 → JP.ICU 06:35 → EDSTATUS 08:30 → JP.MS 14:00
PROVIDERS: ADMIT Orthopaedic Surgery; ATTEND Orthopaedic Surgery
PROC: 0SG00A0 Fusion of Lumbar Vertebral Joint with Interbody Fusion Device, Anterior Approach, Anterior Column, Open Approach (ICD-10-PCS; principal; 2017-08-01)
DX: M48.061 Spinal stenosis, lumbar region without neurogenic claudication (principal); F33.1 Major depressive disorder, recurrent, moderate; Z23 Encounter for immunization; M43.16 Spondylolisthesis, lumbar region; M54.16 Radiculopathy, lumbar region; I10 Essential (primary) hypertension; E11.40 Type 2 diabetes mellitus with diabetic neuropathy, unspecified; Z79.4 Long term (current) use of insulin; G89.29 Other chronic pain; Z86.73 Personal history of transient ischemic attack (TIA), and cerebral infarction without residual deficits; F41.9 Anxiety disorder, unspecified; E78.5 Hyperlipidemia, unspecified; K21.9 Gastro-esophageal reflux disease without esophagitis; J45.909 Unspecified asthma, uncomplicated; E03.9 Hypothyroidism, unspecified; F17.210 Nicotine dependence, cigarettes, uncomplicated; Z79.82 Long term (current) use of aspirin; Z88.8 Allergy status to other drugs, medicaments and biological substances; R50.82 Postprocedural fever; F43.10 Post-traumatic stress disorder, unspecified; F41.0 Panic disorder [episodic paroxysmal anxiety]; G43.909 Migraine, unspecified, not intractable, without status migrainosus; K59.00 Constipation, unspecified; Z87.898 Personal history of other specified conditions
CPT/HCPCS: 36415; 71046; 71046-26; 76001; 80048; 82962; 83735; 84100; 85025; 86850; 86900; 86901; 86920; 86922; 90686; 94640; 94762; 97162-GP; 97165-GO; 97530-GP; 97535-GP; A9270-GY; C1713; C9113; J0690; J1100; J1170; J2020; J2185; J2250; J2405; J2704; J3010; J3490; J7030; J7042; J7050; J7120; J7620

== ENCOUNTER 2018-04-04 11:53 | Emergency (ER) | payer MEDICARE, MEDICAID ==
[2018-04-04 12:27] VITALS: BP 151/73
[2018-04-04] MEDS: HYDROmorphone 1 MG/ML Syringe IM ONE (13:35)
--- NOTE | 2018-04-04 13:35 | EDM.PDOC ---
ED HPI GENERAL MEDICAL PROBLEM - General Chief Complaint: Headache Stated Complaint: MIGRANE Time Seen by Provider: 04/04/18 13:20 Source of Information: Reports: Patient History Limitations: Reports: No Limitations - History of Present Illness INITIAL COMMENTS - FREE TEXT/NARRATIVE: 57-year-old female with chronic vascular headaches has good control with Topamax , however ran out of her medication 7-10 days ago and now has had a persistent headache for the last 4-6 days. She went to the clinic and had some intranasal medication and Zofran but was not restarted on the Topamax but now has a prescription waiting for her at the pharmacy. She wants something to just " break this headache" so she can get back to her routine medications. She is nauseated but not vomiting, no peripheral deficits. She does have photophobia. Onset: Gradual Duration: Day(s): (6 days) Severity: Moderate Associated Symptoms: Reports: Headaches, Loss of Appetite, Malaise, Nausea/ Vomiting. Denies: Weakness Headache Pain Score (Numeric/FACES): 10 - Related Data Allergies Allergy/AdvReac Type Severity Reaction Status Date / Time gabapentin AdvReac Delusions Verified 04/04/18 13:03 [id number] [From Nubain] AdvReac Hypertensio Verified 04/04/18 13:03 n Home Meds: Home Meds Calcium Carbonate/Vitamin D3 [Calcium 600 + Vit D 200] 1 each PO BID 05/05/16 [ History] FLUoxetine HCl [Prozac] 60 mg PO DAILY 05/05/16 [History] Furosemide [Lasix] 40 mg PO DAILY 05/05/16 [History] Insulin Degludec [Tresiba Flextouch U-100] 30 unit SQ DAILY 05/05/16 [History] Levothyroxine Sodium [Synthroid] 150 mcg PO DAILY 05/05/16 [History] Multivitamin [Multi-Vitamin Daily] 1 each PO DAILY 05/05/16 [History] SitaGLIPtin [Januvia] 100 mg PO DAILY 05/05/16 [History] atorvaSTATin [Lipitor] 80 mg PO BEDTIME 05/05/16 [History] Topiramate [Topamax] 50 mg PO BEDTIME 06/02/17 [History] Albuterol Sulfate [Proair Hfa] 2 puff INH QID PRN 07/28/17 [History] Ranitidine HCl [Zantac] 150 mg PO DAILY 07/28/17 [History] ClonazePAM [KlonoPIN] 0.5 mg PO BID PRN 04/04/18 [History] Ondansetron [Zofran ODT] 4 mg PO Q6H PRN 04/04/18 [History] Past Medical History HEENT History: Reports: Impaired Vision Cardiovascular History: Reports: High Cholesterol, Hypertension Respiratory History: Reports: Bronchitis, Recurrent Gastrointestinal History: Reports: Colon Polyp, Other (See Below) Other Gastrointestinal History: reflux necrotizing fasciitis(hospitalized for aprox 1 year) Genitourinary History: Reports: None 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: , 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 Musculoskeletal History: Reports: Other (See Below) Other Musculoskeletal History: s/p ALIF L4-L5 08/01/17 Neurological History: Reports: CVA, Neuropathy, Diabetic Psychiatric History: Reports: Anxiety, Depression Endocrine/Metabolic History: Reports: Diabetes, Type II, Hypothyroidism - Infectious Disease History Infectious Disease History: Reports: C-Difficile, Hepatitis C - Past Surgical History GI Surgical History: Reports: Colonoscopy, EGD Neurological Surgical History: Reports: Discectomy, Laminectomy Musculoskeletal Surgical History: Reports: Carpal Tunnel Dermatological Surgical History: Reports: Skin Graft Social & Family History - Family History Family Medical History: Noncontributory - Tobacco Use Smoking Status *Q: Current Every Day Smoker Years of Tobacco use: 40 Packs/Tins Daily: 0.3 - Caffeine Use Caffeine Use: Reports: Coffee, Energy Drinks - Recreational Drug Use Recreational Drug Use: No ED ROS GENERAL - Review of Systems Review Of Systems: See Below Constitutional: Denies: Fever, Chills HEENT: Reports: Other. Denies: Vision Change Respiratory: Denies: Shortness of Breath Cardiovascular: Denies: Chest Pain (Photophobia) GI/Abdominal: Reports: Nausea. Denies: Vomiting Musculoskeletal: Reports: Neck Pain (Some pain radiating down the right side of the neck) Skin: Reports: No Symptoms Neurological: Reports: Headache Psychiatric: Reports: Anxiety - Physical Exam Exam: See Below Exam Limited By: No Limitations General Appearance: Alert, No Apparent Distress (Patient is not distress but does look uncomfortable) Eye Exam: Bilateral Eye: PERRL (Pupils are somewhat dilated but they are equivalent and reactive) Head Exam: Atraumatic Neck: Other (A small amount of palpation tenderness along the right paracervical muscles) Respiratory/Chest: No Respiratory Distress, Lungs Clear Cardiovascular: Regular Rate, Rhythm Neuro Exam (Abbreviated): Alert, Oriented, No Motor/Sensory Deficits Extremities: No: Pedal Edema Psychiatric: Normal Affect, Normal Mood Skin Exam: Warm, Dry Course - Vital Signs Last Recorded V/S: Last Vital Signs Temp 95.1 F L 04/04/18 13:09 Pulse 63 04/04/18 13:09 Resp 16 04/04/18 13:09 BP 151/73 H 04/04/18 13:09 Pulse Ox 98 04/04/18 13:09 - Orders/Labs/Meds Meds: Medications Discontinued Medications Generic Name Dose Route Start Last Admin Trade Name Gurpreet PRN Reason Stop Dose Admin Hydromorphone HCl 1 mg 04/04/18 13:31 04/04/18 13:35 Dilaudid IM 04/04/18 13:32 1 mg ONETIME ONE Administration - Re-Assessments/Exams Free Text/Narrative Re-Assessment/Exam: 04/04/18 13:34 Patient was given 1 mg of IM Dilaudid, asked to rest for the rest today and immediately resume her Topamax as prescribed. She can recheck in the next 2-3 days if not improving satisfactorily. Departure - Departure Time of Disposition: 14:00 Disposition: Home, Self-Care 01 Condition: Good Clinical Impression: Migraine - Discharge Information Instructions: Migraine Headache, [id number] Referrals: Marilyn Ortega MD [Primary Care Provider] - Forms: ED Department Discharge Care Plan Goals: Resuming your Topamax as prescribed as soon as possible. Rest today, continue with Zofran for nausea and return in 2-3 days if not improving satisfactorily. Return sooner if worsening such as asymmetric weakness or other concerns.
== END 2018-04-04 14:00 | disposition home or self-care (01) ==
LOC: JP.ED 11:53
DX: G43.909 Migraine, unspecified, not intractable, without status migrainosus (principal); E78.00 Pure hypercholesterolemia, unspecified; I10 Essential (primary) hypertension; E11.40 Type 2 diabetes mellitus with diabetic neuropathy, unspecified; F41.9 Anxiety disorder, unspecified; F32.9 Major depressive disorder, single episode, unspecified; E03.9 Hypothyroidism, unspecified; F17.210 Nicotine dependence, cigarettes, uncomplicated; Z88.8 Allergy status to other drugs, medicaments and biological substances; Z79.4 Long term (current) use of insulin; Z79.899 Other long term (current) drug therapy; Z86.73 Personal history of transient ischemic attack (TIA), and cerebral infarction without residual deficits
CPT/HCPCS: 96372; 99283; J1170

== ENCOUNTER 2019-07-24 08:50 | Emergency (ER) | payer MEDICARE, MEDICAID ==
[2019-07-24 09:02] VITALS: BP 150/86; PULSE 119
[2019-07-24] MEDS ORDERED: Albuterol/Ipratropium 3.0-0.5 MG/3 ML Neb Soln NEB ONE (09:19)
--- NOTE | 2019-07-24 09:27 | EDM.PDOC ---
ED HPI GENERAL MEDICAL PROBLEM - General Chief Complaint: Respiratory Problem Stated Complaint: SOB Time Seen by Provider: 07/24/19 09:10 Source of Information: Reports: Patient History Limitations: Reports: No Limitations - History of Present Illness INITIAL COMMENTS - FREE TEXT/NARRATIVE: 58-year-old female who has had a persistent cough for the last couple of weeks. She was placed on a course of doxycycline and a daily dose of prednisone up until 2 days ago. She did feel like she was improved while on the medication but she has been off the prednisone for the last 2 days and is worsening. She can't sleep because she continues to cough. She quit smoking 4 days ago. Productive of some noncolored sputum, no fevers or chills. Onset: Gradual Duration: Week(s): (2 weeks) Associated Symptoms: Reports: Cough, Headaches, Malaise, Shortness of Breath ( Especially with activity). Denies: Fever/Chills, Loss of Appetite, Nausea/ Vomiting - Related Data Allergies Allergy/AdvReac Type Severity Reaction Status Date / Time gabapentin AdvReac Delusions Verified 04/04/18 13:03 nalbuphine [From Nubain] AdvReac Hypertensio Verified 04/04/18 13:03 n Home Meds: Home Meds Calcium Carbonate/Vitamin D3 [Calcium 600 + Vit D 200] 1 each PO BID 05/05/16 [ History] Furosemide [Lasix] 40 mg PO DAILY 05/05/16 [History] Levothyroxine Sodium [Synthroid] 175 mcg PO DAILY 05/05/16 [History] Multivitamin [Multi-Vitamin Daily] 1 each PO DAILY 05/05/16 [History] atorvaSTATin [Lipitor] 40 mg PO BEDTIME 05/05/16 [History] Topiramate [Topamax] 50 mg PO BEDTIME 06/02/17 [History] Albuterol Sulfate [Proair Hfa] 2 puff INH QID PRN 07/28/17 [History] ClonazePAM [KlonoPIN] 1 mg PO BID PRN 04/04/18 [History] Ondansetron [Zofran ODT] 4 mg PO Q6H PRN 04/04/18 [History] Acetylcysteine [K-Evsjth-k-Cysteine] 600 mg PO BID 07/24/19 [History] Albuterol [Proventil HFA] 1 - 2 puff INH ASDIRECTED PRN 07/24/19 [History] Ascorbic Acid [Vitamin C] 500 mg PO DAILY 07/24/19 [History] Cyanocobalamin (Vitamin B-12) [Vitamin B-12] 1,000 mcg PO DAILY 07/24/19 [ History] Eszopiclone 2 mg PO BEDTIME 07/24/19 [History] Insulin Degludec [Tresiba Flextouch U-100] 25 unit SUBCUT DAILY 07/24/19 [ History] Propranolol HCl [Propranolol] 60 mg PO DAILY 07/24/19 [History] QUEtiapine [SEROquel] 0.5 - 1 tab PO BID PRN 07/24/19 [History] Venlafaxine HCl [Venlafaxine ER] 150 mg PO DAILY 07/24/19 [History] Past Medical History HEENT History: Reports: Impaired Vision Cardiovascular History: Reports: High Cholesterol, Hypertension Respiratory History: Reports: Bronchitis, Recurrent Gastrointestinal History: Reports: Colon Polyp, Other (See Below) Other Gastrointestinal History: reflux necrotizing fasciitis(hospitalized for aprox 1 year) Genitourinary History: Reports: 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: , 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 Musculoskeletal History: Reports: Other (See Below) Other Musculoskeletal History: s/p ALIF L4-L5 08/01/17 Neurological History: Reports: CVA, Neuropathy, Diabetic Psychiatric History: Reports: Anxiety, Depression Endocrine/Metabolic History: Reports: Diabetes, Type II, Hypothyroidism - Infectious Disease History Infectious Disease History: Reports: C-Difficile, Hepatitis C - Past Surgical History Head Surgeries/Procedures: Reports: None GI Surgical History: Reports: Colonoscopy, EGD Neurological Surgical History: Reports: Discectomy, Laminectomy Musculoskeletal Surgical History: Reports: Carpal Tunnel Dermatological Surgical History: Reports: Skin Graft Social & Family History - Family History Family Medical History: Noncontributory - Tobacco Use Smoking Status *Q: Former Smoker Used Tobacco, but Quit: Yes Month/Year Tobacco Last Used: 07/2019 - Caffeine Use Caffeine Use: Reports: Coffee, Tea - Recreational Drug Use Recreational Drug Use: No ED ROS GENERAL - Review of Systems Review Of Systems: See Below Constitutional: Reports: Malaise. Denies: Fever, Chills HEENT: Denies: Throat Pain Respiratory: Reports: Shortness of Breath, Cough, Sputum (None colored) Cardiovascular: Denies: Chest Pain, Palpitations GI/Abdominal: Denies: Abdominal Pain, Nausea, Vomiting Neurological: Reports: Headache Psychiatric: Reports: No Symptoms ED EXAM, GENERAL - Physical Exam Exam: See Below Exam Limited By: No Limitations General Appearance: Alert, No Apparent Distress Head: Atraumatic Respiratory/Chest: No Respiratory Distress, Wheezing (Diffuse expiratory wheezing bilaterally, more pronounced with coughing or forced expiration. Also persistent dry cough) Cardiovascular: Regular Rate, Rhythm, Tachycardia Neurological: Alert, Oriented Psychiatric: Normal Affect, Normal Mood Skin Exam: Warm, Dry Course - Vital Signs Last Recorded V/S: Last Vital Signs Temp 97.4 F 07/24/19 09:02 Pulse 119 H 07/24/19 09:02 Resp 20 07/24/19 09:02 BP 150/86 H 07/24/19 09:02 Pulse Ox 95 07/24/19 09:02 - Orders/Labs/Meds Orders: Active Orders 24 hr Category Date Time Status RT Aerosol Therapy [RC] ASDIRECTED Care 07/24/19 09:19 Active Meds: Medications Discontinued Medications Generic Name Dose Route Start Last Admin Trade Name Clarkq PRN Reason Stop Dose Admin Albuterol/Ipratropium 3 ml 07/24/19 09:19 07/24/19 09:26 Duoneb 3.0-0.5 Mg/3 Ml NEB 07/24/19 09:20 3 ml ONETIME ONE Administration - Re-Assessments/Exams Free Text/Narrative Re-Assessment/Exam: 07/24/19 09:26 Patient was given a DuoNeb, and x-ray report from the clinic was obtained which was normal. No reason to repeat the x-ray at this time. 07/24/19 09:48 Patient had subjective and objective improvement after the DuoNeb. She had less expiratory wheezing, almost no wheezing on the left side. She'll be placed on a second burst of prednisone, 60 mg daily for 5 days along with benzonatate Perles and an albuterol inhaler. Recheck in 3-5 days if not improving satisfactorily, or return anytime if worsening despite treatment. Departure - Departure Time of Disposition: 10:00 Disposition: Home, Self-Care 01 Clinical Impression: Acute bronchitis, viral - Discharge Information Instructions: Acute Bronchitis, Adult, [id number] Referrals: Shweta Thornton PA-C [Primary Care Provider] - Forms: ED Department Discharge Care Plan Goals: Take 6 pills of prednisone daily for 5 consecutive days with your first food of the day. Use inhaler every 3-4 hours if needed, and cough suppression as prescribed. Recheck in 3-5 days if not improving satisfactorily, or return anytime if worsening or you develop other concerns despite treatment. Continue avoiding smoking. Sepsis Event Note - Evaluation Sepsis Screening Result: No Definite Risk - Focused Exam Vital Signs: Vital Signs Temp Pulse Resp BP Pulse Ox 07/24/19 09:02 97.4 F 119 H 20 150/86 H 95 07/24/19 09:01 97.4 F 119 H 20 150/86 H 95 Date Exam was Performed: 07/24/19 Time Exam was Performed: 10:54 - My Orders Last 24 Hours: My Active Orders 07/24/19 09:19 RT Aerosol Therapy [RC] ASDIRECTED - Assessment/Plan Last 24 Hours: My Active Orders 07/24/19 09:19 RT Aerosol Therapy [RC] ASDIRECTED
== END 2019-07-24 10:00 | disposition home or self-care (01) ==
LOC: JP.ED 08:50
DX: J20.8 Acute bronchitis due to other specified organisms (principal); K21.9 Gastro-esophageal reflux disease without esophagitis; E78.00 Pure hypercholesterolemia, unspecified; F41.9 Anxiety disorder, unspecified; F32.9 Major depressive disorder, single episode, unspecified; E11.40 Type 2 diabetes mellitus with diabetic neuropathy, unspecified; Z79.4 Long term (current) use of insulin; Z79.899 Other long term (current) drug therapy; Z79.51 Long term (current) use of inhaled steroids; Z87.891 Personal history of nicotine dependence; Z86.73 Personal history of transient ischemic attack (TIA), and cerebral infarction without residual deficits; Z88.5 Allergy status to narcotic agent; Z88.8 Allergy status to other drugs, medicaments and biological substances
CPT/HCPCS: 94640; 99284; 99284-25; J7620-GY

== ENCOUNTER 2019-08-14 13:08 | Emergency (ER) | payer MEDICARE, MEDICAID ==
[2019-08-14] MEDS ORDERED: diphenhydrAMINE 50 MG/ML SDV IVPUSH ONE (14:49)
[2019-08-14] MEDS ORDERED: Lactated Ringers 1,000 ML IV ONE (14:49)
[2019-08-14] MEDS ORDERED: Ketorolac 30 MG/ML SDV IVPUSH ONE (14:49)
[2019-08-14] MEDS ORDERED: Prochlorperazine 10 MG/2 ML SDV IVPUSH ONE (14:49)
[2019-08-14] MEDS ORDERED: Sodium Chloride 0.9% 10 ML Syringe FLUSH PRN (14:49)
--- NOTE | 2019-08-14 14:52 | EDM.PDOC ---
ED HPI GENERAL MEDICAL PROBLEM - General Chief Complaint: Headache Stated Complaint: HEADACHE FOR THREE DAYS WORSE TODAY Time Seen by Provider: 08/14/19 14:45 Source of Information: Reports: Patient, RN Notes Reviewed History Limitations: Reports: No Limitations - History of Present Illness INITIAL COMMENTS - FREE TEXT/NARRATIVE: 58-year-old female presents emergency department a complaint of migraine type headache, she states this migraine is typical for her she has used Imitrex in the past and was on Topamax was which was working quite well for her. This medication was recently stopped by her primary she now has a headache that was unresponsive to Imitrex photophobia phonophobia is been going on for several days and she is unable to break it Headache Pain Score (Numeric/FACES): 8 - Related Data Allergies Allergy/AdvReac Type Severity Reaction Status Date / Time gabapentin AdvReac Delusions Verified 08/14/19 13:57 nalbuphine [From Nubain] AdvReac Hypertensio Verified 08/14/19 13:57 n Home Meds: Home Meds Calcium Carbonate/Vitamin D3 [Calcium 600 + Vit D 200] 1 each PO BID 05/05/16 [ History] Furosemide [Lasix] 40 mg PO DAILY 05/05/16 [History] Levothyroxine Sodium [Synthroid] 175 mcg PO DAILY 05/05/16 [History] Multivitamin [Multi-Vitamin Daily] 1 each PO DAILY 05/05/16 [History] atorvaSTATin [Lipitor] 40 mg PO BEDTIME 05/05/16 [History] Albuterol Sulfate [Proair Hfa] 2 puff INH QID PRN 07/28/17 [History] ClonazePAM [KlonoPIN] 1 mg PO BID PRN 04/04/18 [History] Ondansetron [Zofran ODT] 4 mg PO Q6H PRN 04/04/18 [History] Albuterol [Proventil HFA] 1 - 2 puff INH ASDIRECTED PRN 07/24/19 [History] Ascorbic Acid [Vitamin C] 500 mg PO DAILY 07/24/19 [History] Cyanocobalamin (Vitamin B-12) [Vitamin B-12] 1,000 mcg PO DAILY 07/24/19 [ History] Eszopiclone 2 mg PO BEDTIME PRN 07/24/19 [History] Insulin Degludec [Tresiba Flextouch U-100] 25 unit SUBCUT DAILY 07/24/19 [ History] Propranolol HCl [Propranolol] 60 mg PO DAILY 07/24/19 [History] QUEtiapine [SEROquel] 0.5 - 1 tab PO BID PRN 07/24/19 [History] Venlafaxine HCl [Venlafaxine ER] 150 mg PO DAILY 07/24/19 [History] Aspirin 325 mg PO BEDTIME 08/14/19 [History] Past Medical History HEENT History: Reports: Impaired Vision Cardiovascular History: Reports: High Cholesterol, Hypertension Respiratory History: Reports: Bronchitis, Recurrent Gastrointestinal History: Reports: Colon Polyp, Other (See Below) Other Gastrointestinal History: reflux necrotizing fasciitis(hospitalized for aprox 1 year) 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 Neurological History: Reports: CVA, Neuropathy, Diabetic Psychiatric History: Reports: Anxiety, Depression Endocrine/Metabolic History: Reports: Diabetes, Type II, Hypothyroidism - Infectious Disease History Infectious Disease History: Reports: Chicken Pox, Measles, Mumps - Past Surgical History Head Surgeries/Procedures: Reports: None GI Surgical History: Reports: Colonoscopy, EGD Neurological Surgical History: Reports: Discectomy, Laminectomy Musculoskeletal Surgical History: Reports: Carpal Tunnel Dermatological Surgical History: Reports: Skin Graft Social & Family History - Family History Family Medical History: Noncontributory - Tobacco Use Smoking Status *Q: Current Every Day Smoker Years of Tobacco use: 40 Packs/Tins Daily: 0.5 Used Tobacco, but Quit: No Second Hand Smoke Exposure: Yes - Caffeine Use Caffeine Use: Reports: Coffee, Soda, Tea - Alcohol Use Days Per Week of Alcohol Use: 0 - Recreational Drug Use Recreational Drug Use: Yes Drug Use in Last 12 Months: No Recreational Drug Type: Reports: Marijuana/Hashish Recreational Drug Use Frequency: Not Used In Over 6 Months ED ROS GENERAL - Review of Systems Review Of Systems: See Below Constitutional: Reports: No Symptoms HEENT: Reports: Eye Pain GI/Abdominal: Reports: Nausea Neurological: Reports: Headache - Physical Exam Exam: See Below Exam Limited By: No Limitations General Appearance: Alert, No Apparent Distress Eye Exam: Bilateral Eye: EOMI, Normal Fundi, PERRL Respiratory/Chest: No Respiratory Distress Course - Vital Signs Last Recorded V/S: Last Vital Signs Temp 97.9 F 08/14/19 14:12 Pulse 69 08/14/19 16:04 Resp 16 08/14/19 14:12 BP 166/63 H 08/14/19 16:04 Pulse Ox 98 08/14/19 16:04 - Orders/Labs/Meds Orders: Active Orders 24 hr Category Date Time Status Peripheral IV Care [RC] . DIRECTED Care 08/14/19 14:49 Active Sodium Chloride 0.9% [Saline Flush] Med 08/14/19 14:49 Active 10 ml FLUSH ASDIRECTED PRN Peripheral IV Insertion Adult [OM.PC] Urgent Oth 08/14/19 14:49 Ordered Medication Orders Sodium Chloride (Saline Flush) 10 ml FLUSH ASDIRECTED PRN PRN Reason: Keep Vein Open Last Admin: 08/14/19 15:12 Dose: 10 ml Meds: Medications Generic Name Dose Route Start Last Admin Trade Name Freq PRN Reason Stop Dose Admin Sodium Chloride 10 ml 08/14/19 14:49 08/14/19 15:12 Saline Flush FLUSH 10 ml ASDIRECTED PRN Administration Keep Vein Open Discontinued Medications Generic Name Dose Route Start Last Admin Trade Name Freq PRN Reason Stop Dose Admin Diphenhydramine HCl 50 mg 08/14/19 14:49 08/14/19 15:10 Benadryl IVPUSH 08/14/19 14:50 50 mg ONETIME ONE Administration Lactated Ringer's 1,000 mls @ 999 mls/hr 08/14/19 14:49 08/14/19 15:08 Ringers, Lactated IV 08/14/19 15:49 999 mls/hr BOLUS ONE Administration Ketorolac Tromethamine 30 mg 08/14/19 14:49 08/14/19 15:14 Toradol IVPUSH 08/14/19 14:50 30 mg ONETIME ONE Administration Prochlorperazine Edisylate 5 mg 08/14/19 14:49 08/14/19 15:21 Compazine IVPUSH 08/14/19 14:50 5 mg ONETIME ONE Administration Departure - Departure Time of Disposition: 16:14 Disposition: Home, Self-Care 01 Condition: Fair Clinical Impression: Migraine - Discharge Information Referrals: Shweta Thornton PA-C [Primary Care Provider] - Forms: ED Department Discharge Additional Instructions: Continue with your regular medications, please follow-up with your primary care provider in the next 3 to 5 days for reevaluation, consider restarting Topamax Sepsis Event Note - Evaluation Sepsis Screening Result: No Definite Risk - Focused Exam Vital Signs: Vital Signs Temp Pulse Resp BP Pulse Ox 08/14/19 16:04 69 166/63 H 98 08/14/19 14:12 97.9 F 98 16 142/85 H 98 08/14/19 13:30 97.9 F 98 16 142/85 H 98 Date Exam was Performed: 08/14/19 Time Exam was Performed: 16:14 - My Orders Last 24 Hours: My Active Orders 08/14/19 14:49 Peripheral IV Care [RC] . DIRECTED Sodium Chloride 0.9% [Saline Flush] 10 ml FLUSH ASDIRECTED PRN Peripheral IV Insertion Adult [OM.PC] Urgent - Assessment/Plan Last 24 Hours: My Active Orders 08/14/19 14:49 Peripheral IV Care [RC] . DIRECTED Sodium Chloride 0.9% [Saline Flush] 10 ml FLUSH ASDIRECTED PRN Peripheral IV Insertion Adult [OM.PC] Urgent Plan: Assessment Acuity = acute Site and laterality = migraine type headache without aura Etiology = unknown Manifestations = none Location of injury = Home Lab values = none Plan Good relief combination Toradol, Benadryl, Compazine with 1 L fluids, discharged home have her follow-up primary care 3 to 5 days for reevaluation This note was dictated using [employer] voice recognition software please call with any questions on syntax or grammar.
[2019-08-14 16:05] VITALS: BP 166/63; PULSE 69
== END 2019-08-14 16:22 | disposition home or self-care (01) ==
LOC: JP.ED 13:08
DX: G43.909 Migraine, unspecified, not intractable, without status migrainosus (principal); E78.00 Pure hypercholesterolemia, unspecified; I10 Essential (primary) hypertension; E11.40 Type 2 diabetes mellitus with diabetic neuropathy, unspecified; E03.9 Hypothyroidism, unspecified; F17.210 Nicotine dependence, cigarettes, uncomplicated; Z88.8 Allergy status to other drugs, medicaments and biological substances; Z79.899 Other long term (current) drug therapy; Z86.73 Personal history of transient ischemic attack (TIA), and cerebral infarction without residual deficits; Z79.4 Long term (current) use of insulin; Z79.890 Hormone replacement therapy; Z79.82 Long term (current) use of aspirin
CPT/HCPCS: 96361; 96374; 96375; 99284; J0780; J1200; J1885; J7120

== ENCOUNTER 2020-08-20 07:11 | Day surgery (SDC) | payer MEDICARE, MEDICAID ==
[2020-08-20] MEDS ORDERED: Dextrose 5%-Lactated Ringers 1,000 ML IV SCH (08:00)
[2020-08-20] MEDS ORDERED: Propofol 200 MG/20 ML SDV ONE ×2 (08:19→09:13)
[2020-08-20] MEDS ORDERED: Midazolam 1 MG/ML 2 ML SDV ONE (08:19)
[2020-08-20] MEDS ORDERED: fentaNYL 100 MCG/2 ML SDV ONE (08:19)
[2020-08-20 10:29] VITALS: BP 122/71; PULSE 61
--- NOTE | 2020-08-23 18:35 | OR ---
DATE OF PROCEDURE: 08/20/2020 SURGEON: Don Wilson MD PREOPERATIVE DIAGNOSES: 1. History of gastroesophageal reflux disease. 2. Indications for screening colonoscopy. POSTOPERATIVE DIAGNOSES: 1. History of gastroesophageal reflux disease with: a. Small hiatal hernia with moderately active gastroesophageal reflux disease. b. Mild antral gastritis and proximal duodenitis. 2. Colonoscopy showing 2 small polyps in the hepatic and splenic flexures of colon. OPERATIVE PROCEDURES: 1. Esophagogastroduodenoscopy with: a. Biopsy of esophagogastric junction for histologic evaluation. b. Biopsies of antrum for CLOtest. 2. Flexible colonoscopy with polypectomy by snare technique x2. ANESTHESIA: IV sedation. INDICATIONS FOR PROCEDURE: This is a 59-year-old female presenting for diagnostic upper endoscopy for evaluation of gastroesophageal reflux disease. The patient up until recently had been on Zantac, but was taken off due to concerns about potential contaminants in the Zantac preparation that might lead to high risk of cancer. She had been on omeprazole for just a few days and she thinks this has helped some, but not entirely. The patient also meets criteria for screening colonoscopy. The plan is to proceed with upper and lower endoscopy with biopsies and/or polypectomy as indicated. The potential risks of the procedure including bleeding and perforation were discussed and the patient wishes to proceed. DETAILS OF PROCEDURE: The patient was taken to the operating room and placed in the left lateral decubitus position. IV sedation was administered after which the upper GI endoscope was passed orally through the length of the esophagus, into the stomach with retroflexion view of the fundus, thereafter through the pyloric channel, into the junction of the 3rd and 4th portions of the duodenum. Findings included normal hypopharynx, larynx, upper esophageal sphincter, esophageal body. At the EG junction, a small hiatal hernia was present. There was some mildly active gastroesophageal reflux disease with the distal esophageal mucosa being edematous and somewhat friable. No ulcers or strictures were seen and there was no obvious upward extension of the columnar mucosa above the gastric mucosal folds. Within the stomach, there was some patchy redness in the antrum and duodenal bulb beyond which the duodenal findings normalized. At this point, biopsies were obtained from the antrum and sent for CLOtest for H. pylori. Multiple biopsies were then obtained from the esophagogastric junction and sent for histologic evaluation. Minimal bleeding from the biopsy sites was seen and the upper endoscopic procedure then concluded. Attention was then taken to the colonoscopy. The initial digital rectal exam was performed, it was unremarkable. The colonoscope was then passed into the rectum with retroflexion revealing uncomplicated hemorrhoidal columns. The scope was eventually passed to the level of the cecum. The prep generally was quite good, only a small amount of liquid stool was present. To that level, there were no areas of diverticular disease and no areas of colitis. Two small polyps were identified, 1 in the hepatic flexure, 1 in the splenic flexure of the colon. Both of these were excised by means of cautery snare technique and sent for histologic evaluation. Minimal bleeding from the polypectomy sites was seen and the procedure then concluded. The patient was taken to the recovery room in satisfactory condition. We will contact the patient regarding the pathology and appropriate followup based on the pathology reports and CLOtest results. Don Wilson MD /[id number]
== END 2020-08-20 11:05 | disposition home or self-care (01) ==
LOC: JP.SDS 07:11
PROVIDERS: ATTEND Surgery
DX: Z12.11 Encounter for screening for malignant neoplasm of colon (principal); D12.3 Benign neoplasm of transverse colon; K21.9 Gastro-esophageal reflux disease without esophagitis; K44.9 Diaphragmatic hernia without obstruction or gangrene; K31.89 Other diseases of stomach and duodenum; K29.70 Gastritis, unspecified, without bleeding; K29.80 Duodenitis without bleeding; K64.9 Unspecified hemorrhoids; J45.909 Unspecified asthma, uncomplicated; E11.9 Type 2 diabetes mellitus without complications; Z88.8 Allergy status to other drugs, medicaments and biological substances; Z86.010 Personal history of colon polyps
CPT/HCPCS: 43239; 45385; 87081; J2250; J2704; J3010; J7121

== ENCOUNTER 2020-11-03 12:21 | Emergency (ER) | payer MEDICARE, MEDICAID ==
--- NOTE | 2020-11-03 12:36 | EDM.PDOC ---
ED HPI GENERAL MEDICAL PROBLEM - General Chief Complaint: General Stated Complaint: BLOOD SUGAR HIGH Time Seen by Provider: 11/03/20 13:00 Source of Information: Reports: Patient, Old Records, Provider History Limitations: Reports: No Limitations - History of Present Illness INITIAL COMMENTS - FREE TEXT/NARRATIVE: 60 yo female was sent to the ER after an extensive work up was done for an elevated HgbA1C and falling at home by Shannon Santa NP. Reportedly, Kandis's BS was 624(patient admits she didn't take her insulin today) and her WBC ct was 12.1 her UA was neg, her orthostats were normal and her neuro exam was normal. First Shannon called her patient back when she noticed the BS and told her to come to the ER. She next called the ER and gave me a report. I suggested that if she knew that she wanted Kandis admitted that she call Dr. Lemon and have her directly admitted. Shannon called Dr. Lemon, but when he did not answer she did not leave a message and did not call the ER back. No labs were forwarded to the ER or sent with the patient. Kandis says she has nausea, vomiting, and diarrhea for a day yesterday which is now resolved. She thinks the N, V, D is why she was getting light-headed and falling. Took her Januvia only for diabetic control today, is not really able to give me a good reason why she didn't take her insulin. Does have a mild CENTENO for a couple days. Onset: Gradual Duration: Day(s): (2-3), Constant (CENTENO), Improving (n, v, and diarrhea) Location: Reports: Head (ache) Quality: Reports: Ache Severity: Mild Improves with: Reports: None Worsens with: Reports: None Context: Reports: Trauma (fell and hit head a couple days ago) Associated Symptoms: Reports: Headaches (since hitting head a few days ago). 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 below) (none) Head Pain Score (Numeric/FACES): 6 - Related Data Allergies Allergy/AdvReac Type Severity Reaction Status Date / Time gabapentin AdvReac Delusions Verified 11/03/20 12:37 nalbuphine [From Nubain] AdvReac Hypertensio Verified 11/03/20 12:37 n Home Meds: Home Meds Calcium Carbonate/Vitamin D3 [Calcium 600 + Vit D 200] 1 tab PO BID 05/05/16 [History] Levothyroxine Sodium [Synthroid] 175 mcg PO DAILY 05/05/16 [History] Multivitamin [Multi-Vitamin Daily] 1 tab PO DAILY 05/05/16 [History] atorvaSTATin [Lipitor] 40 mg PO BEDTIME 05/05/16 [History] Albuterol Sulfate [Proair Hfa] 2 puff INH QID PRN 07/28/17 [History] Ondansetron [Zofran ODT] 4 mg PO Q8H PRN 04/04/18 [History] Albuterol [Proventil HFA] 1 - 2 puff INH ASDIRECTED PRN 07/24/19 [History] Ascorbic Acid [Vitamin C] 1,000 mg PO DAILY 07/24/19 [History] Cyanocobalamin (Vitamin B-12) [Vitamin B-12] 1,000 mcg PO DAILY 07/24/19 [History] Propranolol HCl [Propranolol] 60 mg PO DAILY 07/24/19 [History] Aspirin 325 mg PO BEDTIME 08/14/19 [History] ALPRAZolam [Xanax] 1 mg PO BID PRN 08/17/20 [History] FLUoxetine HCl [Prozac] 80 mg PO DAILY 08/17/20 [History] Garlic 100 mg PO DAILY 08/17/20 [History] Insulin Degludec [Tresiba Flextouch U-100] 27 - 33 unit SQ DAILY 08/17/20 [History] Naloxone HCl [Narcan] 4 mg NS ASDIRECTED PRN 08/17/20 [History] Omeprazole 40 mg PO BID 08/17/20 [History] Prazosin [Minpress] 1 mg PO BEDTIME 08/17/20 [History] SitaGLIPtin [Januvia] 100 mg PO DAILY 08/17/20 [History] hydrOXYzine HCL [hydrOXYzine] 1 - 2 tab PO DAILY PRN 08/20/20 [History] Past Medical History HEENT History: Reports: Impaired Vision Cardiovascular History: Reports: High Cholesterol Respiratory History: Reports: Bronchitis, Recurrent Gastrointestinal History: Reports: Colon Polyp, Other (See Below) Other Gastrointestinal History: reflux necrotizing fasciitis(hospitalized for aprox 1 year) Genitourinary History: Reports: None 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 Neurological History: Reports: CVA, Neuropathy, Diabetic Psychiatric History: Reports: Anxiety, Depression Endocrine/Metabolic History: Reports: Diabetes, Type II, Hypothyroidism Dermatologic History: Reports: None - Infectious Disease History Infectious Disease History: Reports: Chicken Pox, Measles, Mumps - Past Surgical History Head Surgeries/Procedures: Reports: None HEENT Surgical History: Reports: None Cardiovascular Surgical History: Reports: None Respiratory Surgical History: Reports: None GI Surgical History: Reports: Colonoscopy, EGD Female Surgical History: Reports: Hysterectomy, Salpingo-Oophorectomy Endocrine Surgical History: Reports: None Neurological Surgical History: Reports: Discectomy, Laminectomy Musculoskeletal Surgical History: Reports: Carpal Tunnel Other Musculoskeletal Surgeries/Procedures:: back surgery Dermatological Surgical History: Reports: Skin Graft Social & Family History - Family History Family Medical History: No Pertinent Family History - Caffeine Use Caffeine Use: Reports: Coffee, Soda, Tea ED ROS GENERAL - Review of Systems Review Of Systems: See Below Constitutional: Reports: No Symptoms HEENT: Reports: No Symptoms Respiratory: Reports: No Symptoms Cardiovascular: Reports: No Symptoms GI/Abdominal: Denies: Black Stool, Bloody Stool, Diarrhea (resolved), Distension, Hematemesis, Hematochezia, Melena, Nausea (resolved), Vomiting (resolved) : Reports: No Symptoms Musculoskeletal: Reports: No Symptoms Skin: Reports: No Symptoms Neurological: Reports: Headache (x 2-3 days since hitting her head) ED EXAM, GENERAL - Physical Exam Exam: See Below Exam Limited By: No Limitations General Appearance: Alert, WD/WN, No Apparent Distress Eye Exam: Bilateral Eye: Normal Inspection Ears: Normal External Exam, Normal Canal, Hearing Grossly Normal, Normal TMs Ear Exam: Bilateral Ear: Auricle Normal, Canal Normal, TM normal Nose: Normal Inspection, No Blood Throat/Mouth: Normal Inspection, Normal Lips, Normal Oropharynx, Normal Voice, No Airway Compromise Head: Atraumatic, Normocephalic Neck: Normal Inspection Respiratory/Chest: No Respiratory Distress, Lungs Clear, Normal Breath Sounds, No Accessory Muscle Use Cardiovascular: Regular Rate, Rhythm, No Edema GI/Abdominal: Normal Bowel Sounds, Soft, Non-Tender, No Distention Back Exam: Normal Inspection. No: CVA Tenderness (R), CVA Tenderness (L) Extremities: Normal Inspection, Normal Range of Motion, Non-Tender, No Pedal Edema, Other (sensation seems intact in both feet, no sign of sores/wounds on either foot). No: Pedal Edema Neurological: Alert, Oriented, CN II-XII Intact, Normal Cognition, No Motor/Sensory Deficits Psychiatric: Normal Affect, Normal Mood Skin Exam: Warm, Dry, Intact, Normal Color, No Rash Course - Vital Signs Text/Narrative:: Gagandeep Finn called @ 1411h Last Recorded V/S: Last Vital Signs Temp 36.6 C 11/03/20 14:39 Pulse 72 11/03/20 14:39 Resp 22 H 11/03/20 14:39 BP 153/60 H 11/03/20 14:39 Pulse Ox 98 11/03/20 14:39 - Orders/Labs/Meds Labs: Laboratory Tests 11/03/20 11/03/20 11/03/20 Range/Units 13:10 13:10 13:10 POC Glucose (74-106) mg/dL Magnesium (1.8-2.4) mg/dL AST (15-37) U/L C-Reactive Protein 0.74 H (0.0-0.3) mg/dL TSH, Ultra Sensitive 4.468 H (0.358-3.740) uIU/mL Ethyl Alcohol < 3 mg/dL 11/03/20 11/03/20 11/03/20 Range/Units 13:10 13:10 14:46 POC Glucose 367 H (74-106) mg/dL Magnesium 1.7 L (1.8-2.4) mg/dL AST 12 L (15-37) U/L C-Reactive Protein (0.0-0.3) mg/dL TSH, Ultra Sensitive (0.358-3.740) uIU/mL Ethyl Alcohol mg/dL Meds: Medications Discontinued Medications Generic Name Dose Route Start Last Admin Trade Name Freq PRN Reason Stop Dose Admin Acetaminophen 1,000 mg 11/03/20 13:02 11/03/20 13:28 Acetaminophen 500 Mg Tab PO 11/03/20 13:03 1,000 mg ONETIME ONE Administration Dextrose/Water 50 ml 11/03/20 12:50 50% Dextrose In Water 50 Ml Syringe IVPUSH ASDIRECTED PRN Hypoglycemia Glucagon 1 mg 11/03/20 12:50 Glucagon,Human Recombinant 1 Mg Vial IM ASDIRECTED PRN Hypoglycemia Potassium Chloride/Sodium Chloride 1,000 mls @ 500 mls/hr 11/03/20 13:00 11/03/20 13:33 Normal Saline With 20 Meq Kcl IV 500 mls/hr ASDIRECTED FRED Administration Levetiracetam 1,000 mg/ Sodium 110 mls @ 400 mls/hr 11/03/20 14:22 11/03/20 14:33 Chloride IV 11/03/20 14:36 400 mls/hr ONETIME ONE Administration Insulin Human Regular 20 unit 11/03/20 12:50 11/03/20 13:14 Insulin Regular, Human 100 Units/Ml 3 Ml Vial SUBCUT 11/03/20 12:51 20 units ONETIME ONE Administration Magnesium Oxide 400 mg 11/03/20 13:43 11/03/20 14:14 Magnesium Oxide 400 Mg Tab PO 11/03/20 13:44 400 mg ONETIME ONE Administration Potassium Chloride 20 meq 11/03/20 12:51 11/03/20 13:14 Potassium Chloride 20 Meq Tab.Er PO 11/03/20 12:52 20 meq ONETIME ONE Administration - Radiology Interpretation Free Text/Narrative:: Head CT scan-6 x 6 cm frontal mass with 12 mm shift of midline to the left. CT Results Date: 11/03/20 Departure - Departure Time of Disposition: 14:50 Disposition: DC/Tfer to Acute Hospital 02 Condition: Fair Clinical Impression: Frontal mass of brain, Elevated blood sugar, Frequent falls - Discharge Information *PRESCRIPTION DRUG MONITORING PROGRAM REVIEWED*: Not Applicable *COPY OF PRESCRIPTION DRUG MONITORING REPORT IN PATIENT JEANIE: Not Applicable Instructions: Hyperglycemia, [id number] Referrals: Shweta Thornton PA-C [Primary Care Provider] - Forms: ED Department Discharge Sepsis Event Note (ED) - Focused Exam Vital Signs: Vital Signs Temp Pulse Resp BP Pulse Ox 11/03/20 14:39 36.6 C 72 22 H 153/60 H 98 11/03/20 14:22 69 136/64 99 11/03/20 13:38 74 125/62 97 11/03/20 12:45 36.6 C 69 18 130/68 98 11/03/20 12:36 36.6 C 69 18 130/68 98
[2020-11-03] MEDS ORDERED: Insulin Regular, Human 100 Units/ML 3 ML Vial SUBCUT ONE (12:50)
[2020-11-03] MEDS ORDERED: Glucagon,Human Recombinant 1 MG Vial IM PRN (12:50)
[2020-11-03] MEDS ORDERED: 50% Dextrose in Water 50 ML Syringe IVPUSH PRN (12:50)
[2020-11-03] MEDS ORDERED: Potassium Chloride 20 MEQ Tab.ER PO ONE (12:51)
[2020-11-03] MEDS ORDERED: NS + KCl 20mEq/L 1,000 ML IV SCH (13:00)
[2020-11-03] MEDS ORDERED: Acetaminophen 500 MG Tab PO ONE (13:02)
[2020-11-03] MEDS ORDERED: Magnesium Oxide 400 MG Tab PO ONE (13:43)
--- NOTE | 2020-11-03 14:05 | CT ---
Head wo Cont CLINICAL HISTORY: Previous head trauma, persistent headache COMPARISON: None TECHNIQUE: Transverse scans were obtained from the base of the skull through the vertex without IV contrast on a multislice, multidetector CT scanner. Auto dosage reduction and iterative reconstruction techniques employed. FINDINGS: There is a approximately 6.6 x 6.0 x 3.9 cm heterogeneous predominantly low-attenuation mass involving the right frontal lobe. This crosses the midline. There is subfalcine herniation of the right frontal horn. There is a leftward midline shift just over 1 cm. No hemorrhage is identified. There is some moderate white matter edema extending to the temporal margin. IMPRESSION: Large heterogeneous right frontal mass causing frontal shift of the midline and subfalcine herniation of the right frontal horn Moderate white matter edema in the right hemisphere No evidence hemorrhage MRI complete should be considered or at least postcontrast CT
[2020-11-03] MEDS ORDERED: levETIRAcetam 1,000 MG in Sodium Chloride 0.9% 100 ML IV ONE (14:22)
[2020-11-03 14:40] VITALS: BP 153/60; PULSE 72
== END 2020-11-03 15:29 ==
LOC: JP.ED 12:21
DX: G93.89 Other specified disorders of brain (principal); E11.65 Type 2 diabetes mellitus with hyperglycemia; E78.00 Pure hypercholesterolemia, unspecified; E11.40 Type 2 diabetes mellitus with diabetic neuropathy, unspecified; E03.9 Hypothyroidism, unspecified; Z88.8 Allergy status to other drugs, medicaments and biological substances; Z88.4 Allergy status to anesthetic agent; Z79.82 Long term (current) use of aspirin; Z79.899 Other long term (current) drug therapy; Z79.4 Long term (current) use of insulin
CPT/HCPCS: 36415; 70450; 80307; 82947; 83735; 84443; 84450; 86140; 96365; 99285; A9270; J1815; J1953; J3480

== ENCOUNTER 2020-11-13 12:09 | Emergency (ER) | payer MEDICARE, MEDICAID ==
[2020-11-13 12:42] VITALS: BP 157/83; PULSE 84
[2020-11-13] MEDS ORDERED: Sodium Chloride 0.9% 10 ML Syringe FLUSH PRN (13:02)
[2020-11-13] MEDS ORDERED: Glucagon,Human Recombinant 1 MG Vial IM PRN (13:04)
[2020-11-13] MEDS ORDERED: Insulin Regular, Human 100 Units/ML 3 ML Vial SUBCUT ONE (13:04)
[2020-11-13] MEDS ORDERED: 50% Dextrose in Water 50 ML Syringe IVPUSH PRN (13:04)
--- NOTE | 2020-11-13 13:06 | EDM.PDOC ---
ED HPI GENERAL MEDICAL PROBLEM - General Chief Complaint: General Stated Complaint: HIGH BLOOD SUGARS Time Seen by Provider: 11/13/20 13:05 Source of Information: Reports: Patient, Old Records History Limitations: Reports: No Limitations - History of Present Illness INITIAL COMMENTS - FREE TEXT/NARRATIVE: Recent brain surgery for CA. Is on dexamethasone. BS most recently in the high 400's. Did not call the clinic, just came here. Not feeling sick. No missed meds today. 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) (none) - Related Data Allergies Allergy/AdvReac Type Severity Reaction Status Date / Time gabapentin AdvReac Delusions Verified 11/13/20 12:43 nalbuphine [From Nubain] AdvReac Hypertensio Verified 11/13/20 12:43 n Home Meds: Home Meds Calcium Carbonate/Vitamin D3 [Calcium 600 + Vit D 200] 1 tab PO BID 05/05/16 [History] Levothyroxine Sodium [Synthroid] 175 mcg PO DAILY 05/05/16 [History] Multivitamin [Multi-Vitamin Daily] 1 tab PO DAILY 05/05/16 [History] atorvaSTATin [Lipitor] 40 mg PO BEDTIME 05/05/16 [History] Albuterol Sulfate [Proair Hfa] 2 puff INH QID PRN 07/28/17 [History] Ondansetron [Zofran ODT] 4 mg PO Q8H PRN 04/04/18 [History] Albuterol [Proventil HFA] 1 - 2 puff INH ASDIRECTED PRN 07/24/19 [History] Ascorbic Acid [Vitamin C] 1,000 mg PO DAILY 07/24/19 [History] Cyanocobalamin (Vitamin B-12) [Vitamin B-12] 1,000 mcg PO DAILY 07/24/19 [History] Propranolol HCl [Propranolol] 60 mg PO DAILY 07/24/19 [History] Aspirin 325 mg PO BEDTIME 08/14/19 [History] ALPRAZolam [Xanax] 1 mg PO BID PRN 08/17/20 [History] FLUoxetine HCl [Prozac] 80 mg PO DAILY 08/17/20 [History] Garlic 100 mg PO DAILY 08/17/20 [History] Insulin Degludec [Tresiba Flextouch U-100] 27 - 33 unit SQ DAILY 08/17/20 [History] Omeprazole 40 mg PO BID 08/17/20 [History] Prazosin [Minpress] 1 mg PO BEDTIME 08/17/20 [History] SitaGLIPtin [Januvia] 100 mg PO DAILY 08/17/20 [History] Acetaminophen/Butalbital/Caff [Fioricet 325-50-40 MG] 1 tab PO BID 11/13/20 [His tory] Insulin Aspart [NovoLOG] 1 injection SUBCUT ASDIRECTED 11/13/20 [History] dexAMETHasone [Dexamethasone] 1 tab PO QID 11/13/20 [History] levETIRAcetam [Levetiracetam] 1 tab PO BID 11/13/20 [History] Past Medical History HEENT History: Reports: Impaired Vision Cardiovascular History: Reports: High Cholesterol Respiratory History: Reports: Bronchitis, Recurrent Gastrointestinal History: Reports: Colon Polyp, Other (See Below) Other Gastrointestinal History: reflux necrotizing fasciitis(hospitalized for aprox 1 year) Genitourinary History: Reports: None 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 Neurological History: Reports: CVA, Neuropathy, Diabetic, Other (See Below) Other Neuro History: 11/10 had brain tumor removal Psychiatric History: Reports: ADD, Anxiety, Depression Endocrine/Metabolic History: Reports: Diabetes, Type II, Hypothyroidism Dermatologic History: Reports: None - Infectious Disease History Infectious Disease History: Reports: Chicken Pox, Measles, Mumps - Past Surgical History Head Surgeries/Procedures: Reports: None HEENT Surgical History: Reports: None Cardiovascular Surgical History: Reports: None Respiratory Surgical History: Reports: None GI Surgical History: Reports: Colonoscopy, EGD Female Surgical History: Reports: Hysterectomy, Salpingo-Oophorectomy Endocrine Surgical History: Reports: None Neurological Surgical History: Reports: Discectomy, Laminectomy Musculoskeletal Surgical History: Reports: Carpal Tunnel Other Musculoskeletal Surgeries/Procedures:: back surgery Dermatological Surgical History: Reports: None, Skin Graft Social & Family History - Family History Family Medical History: No Pertinent Family History - Tobacco Use Tobacco Use Status *Q: Current Every Day Tobacco User Years of Tobacco use: 50 Packs/Tins Daily: 0.2 - Caffeine Use Caffeine Use: Reports: Coffee, Energy Drinks, Tea ED ROS GENERAL - Review of Systems Review Of Systems: See Below Constitutional: Reports: No Symptoms HEENT: Reports: No Symptoms Respiratory: Reports: No Symptoms Cardiovascular: Reports: No Symptoms Endocrine: Reports: No Symptoms GI/Abdominal: Reports: No Symptoms : Reports: No Symptoms Musculoskeletal: Reports: No Symptoms Skin: Reports: No Symptoms Neurological: Reports: No Symptoms ED EXAM, GENERAL - Physical Exam Exam: See Below Exam Limited By: No Limitations General Appearance: Alert, WD/WN, No Apparent Distress Eye Exam: Bilateral Eye: Normal Inspection Ears: Normal External Exam, Normal Canal, Hearing Grossly Normal. No: Hearing Loss Ear Exam: Bilateral Ear: Auricle Normal, Canal Normal Nose: Normal Inspection, No Blood Throat/Mouth: Normal Inspection, Normal Lips, Normal Oropharynx, Normal Voice, No Airway Compromise Head: Atraumatic, Normocephalic Neck: Normal Inspection Respiratory/Chest: No Respiratory Distress, Lungs Clear, Normal Breath Sounds, No Accessory Muscle Use Cardiovascular: Regular Rate, Rhythm, No Edema GI/Abdominal: Normal Bowel Sounds, Soft, Non-Tender, No Distention Back Exam: Normal Inspection. No: CVA Tenderness (R), CVA Tenderness (L) Extremities: Normal Inspection Neurological: Alert, Oriented, CN II-XII Intact, Normal Cognition, No Motor/Sensory Deficits Psychiatric: Normal Affect, Normal Mood Skin Exam: Warm, Dry, Intact, Normal Color, No Rash, Wound/Incision (surgical wound, clean, on scalp noted. ) Course - Vital Signs Last Recorded V/S: Last Vital Signs Temp 35.4 C L 11/13/20 12:58 Pulse 84 11/13/20 12:58 Resp 15 11/13/20 12:58 BP 157/83 H 11/13/20 12:58 Pulse Ox 100 11/13/20 12:58 - Orders/Labs/Meds Orders: Active Orders 24 hr Category Date Time Status GLUCOSE POC LAB TO COLLECT JPM [POC] Stat Lab 11/13/20 14:05 Ordered UA W/MICROSCOPIC [URIN] Stat Lab 11/13/20 12:59 Ordered Dextrose 50% in Water Med 11/13/20 13:04 Active 50 ml IVPUSH ASDIRECTED PRN Glucagon,Human Recombinant [GlucaGen] Med 11/13/20 13:04 Active 1 mg IM ASDIRECTED PRN Sodium Chloride 0.9% [Saline Flush] Med 11/13/20 13:02 Active 10 ml FLUSH ASDIRECTED PRN Saline Lock Insert [OM.PC] Routine Oth 11/13/20 13:02 Ordered Medication Orders Dextrose/Water (50% Dextrose In Water 50 Ml Syringe) 50 ml IVPUSH ASDIRECTED PRN PRN Reason: Hypoglycemia Glucagon (Glucagon,Human Recombinant 1 Mg Vial) 1 mg IM ASDIRECTED PRN PRN Reason: Hypoglycemia Sodium Chloride (Sodium Chloride 0.9% 10 Ml Syringe) 10 ml FLUSH ASDIRECTED PRN PRN Reason: Keep Vein Open Labs: Laboratory Tests 11/13/20 11/13/20 11/13/20 Range/Units 13:13 13:13 13:13 WBC 13.0 H (4.5-11.0) K/uL RBC 4.34 (3.30-5.50) M/uL Hgb 12.6 D (12.0-15.0) g/dL Hct 38.9 (36.0-48.0) % MCV 90 (80-98) fL MCH 29 (27-31) pg MCHC 32 (32-36) % Plt Count 370 (150-400) K/uL Sodium 137 L (140-148) mmol/L Potassium 4.1 (3.6-5.2) mmol/L Chloride 99 L (100-108) mmol/L Carbon Dioxide 28 (21-32) mmol/L Anion Gap 14.1 H (5.0-14.0) mmol/L BUN 30 H D (7-18) mg/dL Creatinine 1.0 (0.6-1.0) mg/dL Est Cr Clr Drug Dosing 46.72 mL/min Estimated GFR (MDRD) 56 L (>60) Glucose 263 H (74-106) mg/dL POC Glucose (74-106) mg/dL Calcium 8.9 (8.5-10.1) mg/dL Troponin I < 0.017 (0.000-0.056) ng/mL C-Reactive Protein 0.47 H (0.0-0.3) mg/dL 11/13/20 Range/Units 14:05 WBC (4.5-11.0) K/uL RBC (3.30-5.50) M/uL Hgb (12.0-15.0) g/dL Hct (36.0-48.0) % MCV (80-98) fL MCH (27-31) pg MCHC (32-36) % Plt Count (150-400) K/uL Sodium (140-148) mmol/L Potassium (3.6-5.2) mmol/L Chloride (100-108) mmol/L Carbon Dioxide (21-32) mmol/L Anion Gap (5.0-14.0) mmol/L BUN (7-18) mg/dL Creatinine (0.6-1.0) mg/dL Est Cr Clr Drug Dosing mL/min Estimated GFR (MDRD) (>60) Glucose (74-106) mg/dL POC Glucose 220 H (74-106) mg/dL Calcium (8.5-10.1) mg/dL Troponin I (0.000-0.056) ng/mL C-Reactive Protein (0.0-0.3) mg/dL Meds: Medications Generic Name Dose Route Start Last Admin Trade Name Freq PRN Reason Stop Dose Admin Dextrose/Water 50 ml 11/13/20 13:04 50% Dextrose In Water 50 Ml Syringe IVPUSH ASDIRECTED PRN Hypoglycemia Glucagon 1 mg 11/13/20 13:04 Glucagon,Human Recombinant 1 Mg Vial IM ASDIRECTED PRN Hypoglycemia Sodium Chloride 10 ml 11/13/20 13:02 Sodium Chloride 0.9% 10 Ml Syringe FLUSH ASDIRECTED PRN Keep Vein Open Discontinued Medications Generic Name Dose Route Start Last Admin Trade Name Freq PRN Reason Stop Dose Admin Insulin Human Regular 8 unit 11/13/20 13:04 11/13/20 13:30 Insulin Regular, Human 100 Units/Ml 3 Ml Vial SUBCUT 11/13/20 13:05 8 units ONETIME ONE Administration Departure - Departure Time of Disposition: 14:15 Disposition: Home, Self-Care 01 Condition: Fair Clinical Impression: Elevated blood sugar, Mild dehydration - Discharge Information *PRESCRIPTION DRUG MONITORING PROGRAM REVIEWED*: Not Applicable *COPY OF PRESCRIPTION DRUG MONITORING REPORT IN PATIENT JEANIE: Not Applicable Instructions: Hyperglycemia, [id number], Dehydration, Adult, [id number] Referrals: Shweta Thornton PA-C [Primary Care Provider] - Forms: ED Department Discharge Additional Instructions: Drink enough fluids so that your urine is light yellow in color. Discuss any changes that are needed in your insulin doses while you are still taking the dexamethasone. Return as needed. Sepsis Event Note (ED) - Evaluation Sepsis Screening Result: No Definite Risk - Focused Exam Vital Signs: Vital Signs Temp Pulse Resp BP Pulse Ox 11/13/20 12:58 35.4 C L 84 15 157/83 H 100 11/13/20 12:40 35.4 C L 84 15 157/83 H 100 - My Orders Last 24 Hours: My Active Orders 11/13/20 12:59 UA W/MICROSCOPIC [URIN] Stat 11/13/20 13:02 Sodium Chloride 0.9% [Saline Flush] 10 ml FLUSH ASDIRECTED PRN Saline Lock Insert [OM.PC] Routine 11/13/20 13:04 Dextrose 50% in Water 50 ml IVPUSH ASDIRECTED PRN Glucagon,Human Recombinant [GlucaGen] 1 mg IM ASDIRECTED PRN 11/13/20 14:05 GLUCOSE POC LAB TO COLLECT JPM [POC] Stat - Assessment/Plan Last 24 Hours: My Active Orders 11/13/20 12:59 UA W/MICROSCOPIC [URIN] Stat 11/13/20 13:02 Sodium Chloride 0.9% [Saline Flush] 10 ml FLUSH ASDIRECTED PRN Saline Lock Insert [OM.PC] Routine 11/13/20 13:04 Dextrose 50% in Water 50 ml IVPUSH ASDIRECTED PRN Glucagon,Human Recombinant [GlucaGen] 1 mg IM ASDIRECTED PRN 11/13/20 14:05 GLUCOSE POC LAB TO COLLECT JPM [POC] Stat
== END 2020-11-13 14:37 | disposition home or self-care (01) ==
LOC: JP.ED 12:09
DX: E11.65 Type 2 diabetes mellitus with hyperglycemia (principal); E86.0 Dehydration; E78.00 Pure hypercholesterolemia, unspecified; E11.40 Type 2 diabetes mellitus with diabetic neuropathy, unspecified; E03.9 Hypothyroidism, unspecified; Z79.899 Other long term (current) drug therapy; Z79.82 Long term (current) use of aspirin; Z79.4 Long term (current) use of insulin; Z88.8 Allergy status to other drugs, medicaments and biological substances; Z86.73 Personal history of transient ischemic attack (TIA), and cerebral infarction without residual deficits; Z72.0 Tobacco use
CPT/HCPCS: 36415; 80048; 82947; 84484; 85027; 86140; 99283; 99284; J1815

== ENCOUNTER 2020-11-30 05:57 | Inpatient (IN) | payer MEDICARE, MEDICAID ==
--- NOTE | 2020-11-30 06:06 | EDM.PDOC ---
<OfficerStas - Last Filed: 11/30/20 06:03> ED HPI GENERAL MEDICAL PROBLEM - General Stated Complaint: HIGH BLOOD SUGAR Time Seen by Provider: 11/30/20 06:03 Source of Information: Reports: EMS, RN Notes Reviewed History Limitations: Reports: Physical Impairment - History of Present Illness INITIAL COMMENTS - FREE TEXT/NARRATIVE: 60-year-old female presents emergency department today via EMS, for seizure like activity, recently had brain tumor removal. Per report from was found standing staring in space then fell to the ground seizure-like activity EMS services were called was provided 10 mg of Versed. She is still in a postictal state so no review of systems or any further history can be obtained - Related Data Allergies Allergy/AdvReac Type Severity Reaction Status Date / Time gabapentin AdvReac Delusions Verified 11/30/20 06:20 [id number] [From Nubain] AdvReac Hypertensio Verified 11/30/20 06:20 n Home Meds: Home Meds Calcium Carbonate/Vitamin D3 [Calcium 600 + Vit D 200] 1 tab PO BID 05/05/16 [History] Levothyroxine Sodium [Synthroid] 175 mcg PO DAILY 05/05/16 [History] Multivitamin [Multi-Vitamin Daily] 1 tab PO DAILY 05/05/16 [History] Albuterol Sulfate [Proair Hfa] 2 puff INH Q4H PRN 07/28/17 [History] Ondansetron [Zofran ODT] 4 mg PO Q8H PRN 04/04/18 [History] Ascorbic Acid [Vitamin C] 1,000 mg PO DAILY 07/24/19 [History] Cyanocobalamin (Vitamin B-12) [Vitamin B-12] 1,000 mcg PO DAILY 07/24/19 [History] Propranolol HCl [Propranolol] 60 mg PO DAILY 07/24/19 [History] Aspirin 325 mg PO BEDTIME 08/14/19 [History] ALPRAZolam [Xanax] 1 mg PO BID PRN 08/17/20 [History] FLUoxetine HCl [Prozac] 80 mg PO DAILY 08/17/20 [History] Garlic 100 mg PO DAILY 08/17/20 [History] Insulin Degludec [Tresiba Flextouch U-100] 27 - 33 unit SQ DAILY 08/17/20 [History] Omeprazole 40 mg PO BID 08/17/20 [History] Prazosin [Minpress] 1 mg PO BEDTIME 08/17/20 [History] SitaGLIPtin [Januvia] 100 mg PO DAILY 08/17/20 [History] Acetaminophen/Butalbital/Caff [Fioricet 325-50-40 MG] 1 tab PO BID 11/13/20 [History] Insulin Aspart [NovoLOG] 1 injection SUBCUT ASDIRECTED 11/13/20 [History] dexAMETHasone [Dexamethasone] 1 tab PO QID 11/13/20 [History] levETIRAcetam [Levetiracetam] 1 tab PO BID 11/13/20 [History] atorvaSTATin Calcium [Lipitor] 1 tab PO BEDTIME 11/30/20 [History] Past Medical History HEENT History: Reports: Impaired Vision Cardiovascular History: Reports: High Cholesterol Respiratory History: Reports: Bronchitis, Recurrent Gastrointestinal History: Reports: Colon Polyp, Other (See Below) Other Gastrointestinal History: reflux necrotizing fasciitis(hospitalized for aprox 1 year) [employer] History: Reports: , 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 Neurological History: Reports: CVA, Neuropathy, Diabetic, Other (See Below) Other Neuro History: 11/10 had brain tumor removal Psychiatric History: Reports: ADD, Anxiety, Depression Endocrine/Metabolic History: Reports: Diabetes, Type II, Hypothyroidism Dermatologic History: Reports: None - Infectious Disease History Infectious Disease History: Reports: Chicken Pox, Measles, Mumps - Past Surgical History Head Surgeries/Procedures: Reports: None HEENT Surgical History: Reports: None Cardiovascular Surgical History: Reports: None Respiratory Surgical History: Reports: None GI Surgical History: Reports: Colonoscopy, EGD Female Surgical History: Reports: Hysterectomy, Salpingo-Oophorectomy Endocrine Surgical History: Reports: None Neurological Surgical History: Reports: Discectomy, Laminectomy Musculoskeletal Surgical History: Reports: Carpal Tunnel Other Musculoskeletal Surgeries/Procedures:: back surgery Dermatological Surgical History: Reports: None, Skin Graft Social & Family History - Family History Family Medical History: No Pertinent Family History - Caffeine Use Caffeine Use: Reports: Coffee, Energy Drinks, Tea ED ROS GENERAL - Review of Systems Review Of Systems: Unable To Obtain Reason Not Obtained: Postictal obtunded ED EXAM, NEURO - Physical Exam Exam: See Below Text/Narrative:: GCS of 10 Exam Limited By: Physical Impairment General Appearance: Obtunded Eye Exam: Bilateral Eye: Normal Inspection, PERRL Respiratory/Chest: No Respiratory Distress, Lungs Clear, Normal Breath Sounds, No Accessory Muscle Use, Chest Non-Tender Cardiovascular: Regular Rate, Rhythm, No Murmur GI/Abdominal: Soft, Non-Tender Departure - Departure Disposition: Admitted As Inpatient 65 Clinical Impression: Seizure - Discharge Information <Yfn Tracy - Last Filed: 11/30/20 17:29> ED ROS GENERAL - Review of Systems Review Of Systems: See Below ED EXAM, NEURO - Physical Exam Exam: See Below Course - Vital Signs Last Recorded V/S: Last Vital Signs Temp 36.5 C 11/30/20 13:31 Pulse 60 11/30/20 13:31 Resp 16 11/30/20 13:31 BP 97/49 L 11/30/20 13:31 Pulse Ox 98 11/30/20 13:31 - Orders/Labs/Meds Orders: Active Orders 24 hr Category Date Time Status LEVETIRACETAM (KEPPRA), S Urgent Lab 11/30/20 07:08 Received Medication Orders Acetaminophen (Acetaminophen 325 Mg Tab) 650 mg PO Q4H PRN PRN Reason: Pain (Mild 1-3)/fever Albuterol (Albuterol 0.083% 2.5 Mg/3 Ml Neb Soln) 2.5 mg NEB Q4H PRN PRN Reason: Shortness Of Breath/wheezing Alogliptin Benzoate (Alogliptin 12.5 Mg Tab) 25 mg PO DAILY FRED Alprazolam (Alprazolam 0.5 Mg Tab) 1 mg PO BID PRN PRN Reason: Anxiety Last Admin: 11/30/20 15:35 Dose: 1 mg Documented by: MIKY Aspirin (Aspirin 325 Mg Tab.Ec) 325 mg PO BEDTIME [facility]ED Atorvastatin Calcium (Atorvastatin 20 Mg Tab) 40 mg PO BEDTIME FRED Cyanocobalamin (Cyanocobalamin (Vitamin B12) 1,000 Mcg Tab) 1,000 mcg PO DAILY FRED Dexamethasone (Dexamethasone 2 Mg Tab) 2 mg PO QID FRED Last Admin: 11/30/20 15:35 Dose: 2 mg Documented by: MIKY Fluoxetine HCl (Fluoxetine 20 Mg Cap) 80 mg PO DAILY [facility]ED Sodium Chloride (Normal Saline) 1,000 mls @ 125 mls/hr IV ASDIRECTED [facility] Last Admin: 11/30/20 13:46 Dose: 125 mls/hr Documented by: MIKY Insulin Glargine (Insulin Glargine,Human Rec. Analog 100 Units/Ml 3 Ml Pen) 30 units SUBCUT DAILY [facility] Insulin Human Lispro (Insulin Lispro 100 Unit/Ml 3 Ml Kwikpen) 0 unit SUBCUT QIDACANDBED [facility]; Protocol Insulin Human Lispro (Insulin Lispro 100 Unit/Ml 3 Ml Kwikpen) 5 unit SUBCUT TIDMEALS [facility] Levetiracetam (Levetiracetam 250 Mg Tab) 1,000 mg PO BID [facility] Levothyroxine Sodium 100 mcg/Levothyroxine Sodium 50 mcg/Levothyroxine Sodium 25 mcg 175 mcg PO ACBREAKFAST [facility] Magnesium Hydroxide (Magnesium Hydroxide 400 Mg/5 Ml Susp 30 Ml Cup) 30 ml PO Q12H PRN PRN Reason: Constipation Melatonin (Melatonin 3 Mg Tab) 9 mg PO BEDTIME [facility] Non-Formulary Medication (Acetaminophen/Butalbital/Caff [Fioricet 325-50-40 Mg]) 1 tab PO BID PRN PRN Reason: Headache Ondansetron HCl (Ondansetron 4 Mg/2 Ml Sdv) 4 mg IV Q6H PRN PRN Reason: Nausea/Vomiting Ondansetron HCl (Ondansetron 4 Mg Tab.Dis) 4 mg PO Q6H PRN PRN Reason: Nausea able to take PO Pantoprazole Sodium (Pantoprazole 40 Mg Tab.Cr) [facility] Last Admin: 11/30/20 15:35 Dose: 40 mg Documented by: MIKY Prazosin HCl (Prazosin 1 Mg Cap) 1 mg PO BEDTIME [facility] Propranolol HCl (Propranolol 60 Mg Cap.Er) 60 mg PO DAILY [facility] Senna/Docusate Sodium (Docusate Sodium/Sennosides 50-8.6 Mg Tab) 1 tab PO BID PRN PRN Reason: Constipation Labs: Laboratory Tests 11/30/20 11/30/20 11/30/20 Range/Units 06:07 06:07 06:07 WBC 9.6 (4.5-11.0) K/uL RBC 4.50 (3.30-5.50) M/uL Hgb 13.5 (12.0-15.0) g/dL Hct 40.2 (36.0-48.0) % MCV 89 (80-98) fL MCH 30 (27-31) pg MCHC 34 (32-36) % Plt Count 268 (150-400) K/uL Neut % (Auto) 80.8 H (36-66) % Lymph % (Auto) 11.7 L (24-44) % [place]berry % (Auto) 6.5 H (2-6) % Eos % (Auto) 0.6 L (2-4) % Baso % (Auto) 0.4 (0-1) % Sodium 133 L (140-148) mmol/L Potassium 4.1 (3.6-5.2) mmol/L Chloride 100 (100-108) mmol/L Carbon Dioxide 18 L (21-32) mmol/L Anion Gap 19.1 H (5.0-14.0) mmol/L BUN 19 H (7-18) mg/dL Creatinine 1.2 H (0.6-1.0) mg/dL Est Cr Clr Drug Dosing 38.94 mL/min Estimated GFR (MDRD) 46 L (>60) Glucose 478 H* (74-106) mg/dL Calcium 8.1 L (8.5-10.1) mg/dL Total Bilirubin 0.4 (0.2-1.0) mg/dL AST 11 L (15-37) U/L ALT 26 (12-78) U/L Alkaline Phosphatase 115 (46-116) U/L Total Protein 6.7 (6.4-8.2) g/dL Albumin 3.0 L (3.4-5.0) g/dL Globulin 3.7 H (2.3-3.5) g/dL Albumin/Globulin Ratio 0.8 L (1.2-2.2) Urine Color (YELLOW) Urine Appearance (CLEAR) Urine pH (5.0-8.0) Ur Specific [place] (1.008-1.030) Urine Protein (NEGATIVE) mg/dL Urine Glucose (UA) (NEGATIVE) mg/dL Urine Ketones (NEGATIVE) mg/dL Urine Occult Blood (NEGATIVE) Urine Nitrite (NEGATIVE) Urine Bilirubin (NEGATIVE) Urine Urobilinogen (0.2-1.0) EU/dL Ur Leukocyte Esterase (NEGATIVE) Urine RBC (0-5) Urine WBC (0-5) Ur Epithelial Cells Amorphous Sediment Urine Bacteria Urine Mucus Salicylates 3.7 (2.0-20.0) mg/dL Urine Opiates Screen (NEGATIVE) Ur Oxycodone Screen (NEGATIVE) Urine Methadone Screen (NEGATIVE) Ur Propoxyphene Screen (NEGATIVE) Acetaminophen 0.1 L (10.0-30.0) ug/mL Ur Barbiturates Screen (NEGATIVE) Ur Tricyclics Screen (NEGATIVE) Ur Phencyclidine Scrn (NEGATIVE) Ur Amphetamine Screen (NEGATIVE) U Methamphetamines Scrn (NEGATIVE) Urine MDMA Screen (NEGATIVE) U Benzodiazepines Scrn (NEGATIVE) U Cocaine Metab Screen (NEGATIVE) U Marijuana (THC) Screen (NEGATIVE) 11/30/20 11/30/20 11/30/20 Range/Units 10:22 10:22 10:39 WBC (4.5-11.0) K/uL RBC (3.30-5.50) M/uL Hgb (12.0-15.0) g/dL Hct (36.0-48.0) % MCV (80-98) fL MCH (27-31) pg MCHC (32-36) % Plt Count (150-400) K/uL Neut % (Auto) (36-66) % Lymph % (Auto) (24-44) % Newberry % (Auto) (2-6) % Eos % (Auto) (2-4) % Baso % (Auto) (0-1) % Sodium 136 L (140-148) mmol/L Potassium 4.1 (3.6-5.2) mmol/L Chloride 101 (100-108) mmol/L Carbon Dioxide 23 (21-32) mmol/L Anion Gap 16.1 H (5.0-14.0) mmol/L BUN 18 (7-18) mg/dL Creatinine 1.0 (0.6-1.0) mg/dL Est Cr Clr Drug Dosing 46.72 mL/min Estimated GFR (MDRD) 56 L (>60) Glucose 495 H* (74-106) mg/dL Calcium 7.9 L (8.5-10.1) mg/dL Total Bilirubin (0.2-1.0) mg/dL AST (15-37) U/L ALT (12-78) U/L Alkaline Phosphatase (46-116) U/L Total Protein (6.4-8.2) g/dL Albumin (3.4-5.0) g/dL Globulin (2.3-3.5) g/dL Albumin/Globulin Ratio (1.2-2.2) Urine Color Yellow (YELLOW) Urine Appearance Clear (CLEAR) Urine pH 6.0 (5.0-8.0) Ur Specific [place] 1.015 (1.008-1.030) Urine Protein Negative (NEGATIVE) mg/dL Urine Glucose (UA) 500 H (NEGATIVE) mg/dL Urine Ketones Negative (NEGATIVE) mg/dL Urine Occult Blood Trace-intact H (NEGATIVE) Urine Nitrite Negative (NEGATIVE) Urine Bilirubin Negative (NEGATIVE) Urine Urobilinogen 0.2 (0.2-1.0) EU/dL Ur Leukocyte Esterase Negative (NEGATIVE) Urine RBC 0-5 (0-5) Urine WBC Not seen (0-5) Ur Epithelial Cells Few Amorphous Sediment Not seen Urine Bacteria Not seen Urine Mucus Not seen Salicylates (2.0-20.0) mg/dL Urine Opiates Screen Negative (NEGATIVE) Ur Oxycodone Screen Negative (NEGATIVE) Urine Methadone Screen Negative (NEGATIVE) Ur Propoxyphene Screen Negative (NEGATIVE) Acetaminophen (10.0-30.0) ug/mL Ur Barbiturates Screen Negative (NEGATIVE) Ur Tricyclics Screen Negative (NEGATIVE) Ur Phencyclidine Scrn Negative (NEGATIVE) Ur Amphetamine Screen Negative (NEGATIVE) U Methamphetamines Scrn Negative (NEGATIVE) Urine MDMA Screen Negative (NEGATIVE) U Benzodiazepines Scrn Negative (NEGATIVE) U Cocaine Metab Screen Negative (NEGATIVE) U Marijuana (THC) Screen Negative (NEGATIVE) Meds: Medications Generic Name Dose Route Start Last Admin Trade Name Freq PRN Reason Stop Dose Admin Acetaminophen 650 mg 11/30/20 13:29 Acetaminophen 325 Mg Tab PO Q4H PRN Pain (Mild 1-3)/fever Albuterol 2.5 mg 11/30/20 13:29 Albuterol 0.083% 2.5 Mg/3 Ml Neb Soln NEB Q4H PRN Shortness Of Breath/wheezing Alogliptin Benzoate 25 mg 12/01/20 09:00 Alogliptin 12.5 Mg Tab PO DAILY FRED Alprazolam 1 mg 11/30/20 13:36 11/30/20 15:35 Alprazolam 0.5 Mg Tab PO 1 mg BID PRN Administration Anxiety Aspirin 325 mg 11/30/20 21:00 Aspirin 325 Mg Tab.Ec PO BEDTIME [facility] Atorvastatin Calcium 40 mg 11/30/20 21:00 Atorvastatin 20 Mg Tab PO BEDTIME FRED Cyanocobalamin 1,000 mcg 12/01/20 09:00 Cyanocobalamin (Vitamin B12) 1,000 Mcg Tab PO DAILY FRED Dexamethasone 2 mg 11/30/20 16:00 11/30/20 15:35 Dexamethasone 2 Mg Tab PO 2 mg QID FRED Administration Fluoxetine HCl 80 mg 12/01/20 09:00 Fluoxetine 20 Mg Cap PO DAILY [facility] Sodium Chloride 1,000 mls @ 125 mls/hr 11/30/20 13:29 11/30/20 13:46 Normal Saline IV 125 mls/hr ASDIRECTED [facility] Administration Insulin Glargine 30 units 12/01/20 09:00 Insulin Glargine,Human Rec. Analog 100 Units/Ml 3 Ml Pen SUBCUT DAILY [facility] Insulin Human Lispro 0 unit 11/30/20 17:00 Insulin Lispro 100 Unit/Ml 3 Ml Kwikpen SUBCUT QIDACANDBED [facility] Protocol Insulin Human Lispro 5 unit 11/30/20 17:00 Insulin Lispro 100 Unit/Ml 3 Ml Kwikpen SUBCUT TIDMEALS [facility] Levetiracetam 1,000 mg 11/30/20 21:00 Levetiracetam 250 Mg Tab PO BID [facility] Levothyroxine Sodium 100 mcg/ 175 mcg 12/01/20 07:30 Levothyroxine Sodium 50 mcg/ PO Levothyroxine Sodium 25 mcg ACBREAKFAST [facility] Magnesium Hydroxide 30 ml 11/30/20 13:29 Magnesium Hydroxide 400 Mg/5 Ml Susp 30 Ml Cup PO Q12H PRN Constipation Melatonin 9 mg 11/30/20 21:00 Melatonin 3 Mg Tab PO BEDTIME [facility] Non-Formulary Medication 1 tab 11/30/20 13:29 Acetaminophen/Butalbital/Caff [Fioricet 325-50-40 Mg] PO BID PRN Headache Ondansetron HCl 4 mg 11/30/20 13:29 Ondansetron 4 Mg/2 Ml Sdv IV Q6H PRN Nausea/Vomiting Ondansetron HCl 4 mg 11/30/20 13:29 Ondansetron 4 Mg Tab.Dis PO Q6H PRN Nausea able to take PO Pantoprazole Sodium 40 mg 11/30/20 16:30 11/30/20 15:35 Pantoprazole 40 Mg Tab.Cr PO 40 mg BIDAC FRED Administration Prazosin HCl 1 mg 11/30/20 21:00 Prazosin 1 Mg Cap PO BEDTIME [facility] Propranolol HCl 60 mg 12/01/20 09:00 Propranolol 60 Mg Cap.Er PO DAILY [facility] Senna/Docusate Sodium 1 tab 11/30/20 13:29 Docusate Sodium/Sennosides 50-8.6 Mg Tab PO BID PRN Constipation Discontinued Medications Generic Name Dose Route Start Last Admin Trade Name Freq PRN Reason Stop Dose Admin Dextrose/Water 50 ml 11/30/20 08:19 50% Dextrose In Water 50 Ml Syringe IVPUSH ASDIRECTED PRN Hypoglycemia Dextrose/Water 50 ml 11/30/20 11:04 50% Dextrose In Water 50 Ml Syringe IVPUSH ASDIRECTED PRN Hypoglycemia Glucagon 1 mg 11/30/20 08:19 Glucagon,Human Recombinant 1 Mg Vial IM ASDIRECTED PRN Hypoglycemia Glucagon 1 mg 11/30/20 11:04 Glucagon,Human Recombinant 1 Mg Vial IM ASDIRECTED PRN Hypoglycemia Lactated Ringer's 1,000 mls @ 999 mls/hr 11/30/20 08:22 11/30/20 08:55 Ringers, Lactated IV 11/30/20 09:22 999 mls/hr BOLUS ONE Administration Levetiracetam 2,000 mg/ Sodium 270 mls @ 500 mls/hr 11/30/20 09:00 11/30/20 08:55 Chloride IV 11/30/20 09:32 500 mls/hr ONETIME ONE Administration Insulin Glargine 15 units 11/30/20 09:00 11/30/20 08:53 Insulin Glargine,Human Rec. Analog 100 Units/Ml 3 Ml Pen SUBCUT 15 unit DAILY [facility]ED Administration Insulin Human Regular 8 unit 11/30/20 08:19 11/30/20 08:44 Insulin Regular, Human 100 Units/Ml 3 Ml Vial SUBCUT 11/30/20 08:20 8 unit ONETIME ONE Administration Insulin Human Regular 15 unit 11/30/20 11:04 11/30/20 11:22 Insulin Regular, Human 100 Units/Ml 3 Ml Vial SUBCUT 11/30/20 11:05 15 units ONETIME ONE Administration - Re-Assessments/Exams Free Text/Narrative Re-Assessment/Exam: I received this patient in signout from Dr. Andersonr pending repeat evaluation and ultimate disposition. As summarized in his note, she is a 60-year-old with history of recent brain tumor resection who presented after a seizure. Repeat head imaging was reassuring. She did clear appropriately from her postictal state. 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 Also became clear that her blood sugars have been poorly controlled at baseline, currently on Decadron, with blood glucoses in the 400s here. She has been administered IV fluids and doses of subcutaneous insulin. Ultimately, she is not safe to be in her home with her current level of cognitive dysfunction as manifested by her presentation today in the setting of likely noncompliance with her AEDs. She is admitted to the hospitalist for further work-up and likely ultimate disposition to a nursing facility. 11/30/20 11:33 Departure - Departure Time of Disposition: 15:00 Sepsis Event Note (ED) - Focused Exam Vital Signs: Vital Signs Temp Pulse Resp BP Pulse Ox 11/30/20 06:15 36.7 C 86 16 105/57 L 98
[2020-11-30 06:28] LABS: ACETAMINOPHEN 0.1 ug/mL (10.0-30.0)
--- NOTE | 2020-11-30 06:45 | CRLCT ---
INDICATION: Seizure-like activity. Recent brain surgery. COMPARISON: CT of the head from 11/03/2020. TECHNIQUE: CT examination of the head was performed with 2 and 3 mm thick axial and 2 mm thick coronal and sagittal sections without intravenous contrast. Images were obtained from the vertex of the skull through the skull base, and I examined the images with the brain and bone windows. Please note that all CT scans at this facility use dose modulation, iterative reconstruction, and/or weight-based dosing when appropriate to reduce radiation dose to as low as reasonably achievable. FINDINGS: : There are new changes of a large right frontal craniotomy with biopsy and removal of the central portion of the large right frontal mass. There is now a gas and fluid collection within the hypodense mass measuring approximately 3.0 by 1.6 centimeters. There is new small patchy hemorrhage located in the medial aspect of the mass adjacent to the interhemispheric fissure. There is continued prominent mass effect upon the frontal horn of the right lateral ventricle, with moderate posterior and superior displacement by a cystic region. There continues to be prominent white matter edema crossing the midline into the inferior left frontal lobe. Overall mass effect has decreased, with elimination of the mild [id number] midline shift of the superior portion of the septum pellucidum. There is no sign of new mass effect elsewhere. There is no sign of any new hemorrhage or edema. There continues to be mild dilatation of the ventricles and sulci elsewhere in the brain. The visualized portions of the orbits are normal in appearance. The visualized portions of the paranasal sinuses and mastoids are clear. The osseous structures are normal in their appearance with no sign of abnormality in the skull base or calvarium. IMPRESSION: Slight decrease in mass effect after biopsy and central resection of the large right frontal hypodense mass. The previously seen mild right to left midline shift of the superior septum pellucidum is no longer present, but there continues to be moderate mass effect upon the right frontal horn. Small amount of hemorrhage located in the medial aspect of the mass in the area of the interhemispheric fissure. Continued prominent right frontal lobe edema, crossing the midline into the inferior left frontal lobe. Please note that all CT scans at this facility use dose modulation, iterative reconstruction, and/or weight-based dosing when appropriate to reduce radiation dose to as low as reasonably achievable. Dictated by Roberth Pappas MD @ 11/30/2020 6:44:[address] Roberth Pappas @ Nov 30 2020 6:44AM
[2020-11-30] MEDS ORDERED: 50% Dextrose in Water 50 ML Syringe IVPUSH PRN ×2 (08:19→11:04)
[2020-11-30] MEDS ORDERED: Glucagon,Human Recombinant 1 MG Vial IM PRN ×2 (08:19→11:04)
[2020-11-30] MEDS ORDERED: Insulin Regular, Human 100 Units/ML 3 ML Vial SUBCUT ONE ×2 (08:19→11:04)
[2020-11-30] MEDS ORDERED: levETIRAcetam 2,000 MG in Sodium Chloride 0.9% 100 ML IV ONE (08:21)
[2020-11-30] MEDS ORDERED: Lactated Ringers 1,000 ML IV ONE (08:22)
[2020-11-30] MEDS ORDERED: Insulin Glargine,Human Rec. Analog 100 Units/ML 3 ML Pen SUBCUT SCH (09:00)
--- NOTE | 2020-11-30 12:38 | PCM.HP.2 ---
H&P History of Present Illness - General Date of Service: 11/30/20 Admit Problem/Dx: Admission Diagnosis/Problem Admission Diagnosis/Problem Seizure Source of Information: Provider, Significant Other. No: Patient History Limitations: Reports: Altered Mental Status - History of Present Illness Initial Comments - Free Text/Narative: CC: Seizure HPI: Kandis presented to the emergency room by ambulance after a suspected seizure at home. She is still quite confused and is unable to provide any reliable history. History is gathered from emergency room personnel and her significant other. Her SO reports that he woke up this morning and she was standing by the bedside staring blankly. She did not respond to his question about what she was doing. He went to the bathroom and while he was in the heard a crash. When he came out she was laying on the floor and started to have full body convulsions. This lasted for a short while maybe a couple of minutes. He called 911. She did receive 10 mg of midazolam in the emergency room and was quite sleepy on arrival to the emergency room. She is now waking up but has no recollection of the events. She tells me that she feels fine. She says things have been going fine at home and there have been no issues. Her SO reports that she has been taking medications intermittently. She has not been checking her blood sugars regularly if at all. Appetite has been hit or miss. At this time she does not report any shortness of breath, chest pain or abdominal pain. It is noted that she was admitted to the hospital in [place] from the 11th to the th of this month for management of a brain tumor that was diagnosed in the emergency room prior to transfer. She did have surgical intervention completed. Pathology did return as glioblastoma. Family is very concerned about her safety at home. They do not feel that she is doing well and do not feel that she is safe in the current living situation based on how she is doing at this time. Work-up in the emergency room revealed evidence for a postictal state. Laborat ory studies suggested mild dehydration and hyperglycemia. She did receive some insulin for this. Repeat head CT showed recent surgical intervention and some surrounding edema but overall things appeared improved compared to previous scans. She will be admitted for management of breakthrough seizures and hyperglycemia. - Related Data Allergies/Adverse Reactions: Allergies Allergy/AdvReac Type Severity Reaction Status Date / Time gabapentin AdvReac Delusions Verified 11/30/20 06:20 nalbuphine [From Nubain] AdvReac Hypertensio Verified 11/30/20 06:20 n Home Medications: Home Meds Calcium Carbonate/Vitamin D3 [Calcium 600 + Vit D 200] 1 tab PO BID 05/05/16 [History] Levothyroxine Sodium [Synthroid] 175 mcg PO DAILY 05/05/16 [History] Multivitamin [Multi-Vitamin Daily] 1 tab PO DAILY 05/05/16 [History] Albuterol Sulfate [Proair Hfa] 2 puff INH Q4H PRN 07/28/17 [History] Ondansetron [Zofran ODT] 4 mg PO Q8H PRN 04/04/18 [History] Ascorbic Acid [Vitamin C] 1,000 mg PO DAILY 07/24/19 [History] Cyanocobalamin (Vitamin B-12) [Vitamin B-12] 1,000 mcg PO DAILY 07/24/19 [History] Propranolol HCl [Propranolol] 60 mg PO DAILY 07/24/19 [History] Aspirin 325 mg PO BEDTIME 08/14/19 [History] ALPRAZolam [Xanax] 1 mg PO BID PRN 08/17/20 [History] FLUoxetine HCl [Prozac] 80 mg PO DAILY 08/17/20 [History] Garlic 100 mg PO DAILY 08/17/20 [History] Insulin Degludec [Tresiba Flextouch U-100] 27 - 33 unit SQ DAILY 08/17/20 [History] Omeprazole 40 mg PO BID 08/17/20 [History] Prazosin [Minpress] 1 mg PO BEDTIME 08/17/20 [History] SitaGLIPtin [Januvia] 100 mg PO DAILY 08/17/20 [History] Acetaminophen/Butalbital/Caff [Fioricet 325-50-40 MG] 1 tab PO BID 11/13/20 [History] Insulin Aspart [NovoLOG] 1 injection SUBCUT ASDIRECTED 11/13/20 [History] dexAMETHasone [Dexamethasone] 1 tab PO QID 11/13/20 [History] levETIRAcetam [Levetiracetam] 1 tab PO BID 11/13/20 [History] atorvaSTATin Calcium [Lipitor] 1 tab PO BEDTIME 11/30/20 [History] Past Medical History HEENT History: Reports: Impaired Vision Cardiovascular History: Reports: High Cholesterol Respiratory History: Reports: Asthma, Bronchitis, Recurrent Gastrointestinal History: Reports: Colon Polyp, Other (See Below) Other Gastrointestinal History: reflux necrotizing fasciitis(hospitalized for aprox 1 year) reflux [employer] History: Reports: , 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 spinal stenosis. Neurological History: Reports: CVA, Migraines, Neuropathy, Diabetic, Other (See Below) Other Neuro History: 11/10 had brain tumor removal Psychiatric History: Reports: ADD, Addiction, Anxiety, Depression, Panic Attack, PTSD Other Psychiatric History: Past alcohol,cocaine, opoid dependence. Endocrine/Metabolic History: Reports: Diabetes, Type II, Hypothyroidism Dermatologic History: Reports: None - Infectious Disease History Infectious Disease History: Reports: Chicken Pox, Hepatitis C, Measles, Mumps - Past Surgical History Head Surgeries/Procedures: Reports: None HEENT Surgical History: Reports: None, Other (See Below) Other HEENT Surgeries/Procedures: s/p craniotomy glioblastoma Cardiovascular Surgical History: Reports: None Respiratory Surgical History: Reports: None GI Surgical History: Reports: Colonoscopy, EGD Female Surgical History: Reports: Hysterectomy, Salpingo-Oophorectomy Endocrine Surgical History: Reports: None Neurological Surgical History: Reports: Discectomy, Laminectomy Musculoskeletal Surgical History: Reports: Carpal Tunnel Other Musculoskeletal Surgeries/Procedures:: back surgery Dermatological Surgical History: Reports: None, Skin Graft Social & Family History - Family History Family Medical History: No Pertinent Family History - Tobacco Use Tobacco Use Status *Q: Current Some Day Tobacco User Years of Tobacco use: 45 Packs/Tins Daily: 1 Used Tobacco, but Quit: No Second Hand Smoke Exposure: Yes - Caffeine Use Caffeine Use: Reports: Coffee, Tea - Alcohol Use Days Per Week of Alcohol Use: 0 - Recreational Drug Use Recreational Drug Use: Yes Drug Use in Last 12 Months: No H&P Review of Systems - Review of Systems: Review Of Systems: Unable To Obtain Reason Not Obtained: Patient is postictal and confused Exam - Exam Exam: See Below - Vital Signs Vital Signs: Last Vital Signs Temp 36.7 C 11/30/20 06:15 Pulse 86 11/30/20 06:15 Resp 16 11/30/20 06:15 BP 105/57 L 11/30/20 06:15 Pulse Ox 98 11/30/20 06:15 Weight: 72.575 kg - Exam Quality Assessment: Supplemental Oxygen General: Alert, Cooperative. No: Oriented, Mild Distress HEENT: Conjunctiva Clear, Other (Healed surgical scars across the frontal scalp and midline of the forehead). No: Mucosa Moist & [place] (dry), Scleral Icterus Neck: Supple, Trachea Midline Lungs: Clear to Auscultation, Normal Respiratory Effort Cardiovascular: Regular Rate, Regular Rhythm. No: Systolic Murmur GI/Abdominal Exam: Normal Bowel Sounds, Soft, Non-Tender, No Distention Back Exam: Normal Inspection, Full Range of Motion Extremities: No Pedal Edema. No: Increased Warmth Skin: Warm, Dry Neuro Extensive - Mental Status: Alert, Nl Response to Commands. No: Oriented x3 Neuro Extensive - Motor, Sensory, Reflexes: No: Dysarthria, Abnormal Motor, Tremor Psychiatric: Alert, Normal Affect - Patient Data Lab Results Last 24 hrs: Laboratory Results - last 24 hr 11/30/20 11/30/20 11/30/20 Range/Units 06:07 06:07 06:07 WBC 9.6 (4.5-11.0) K/uL RBC 4.50 (3.30-5.50) M/uL Hgb 13.5 (12.0-15.0) g/dL Hct 40.2 (36.0-48.0) % MCV 89 (80-98) fL MCH 30 (27-31) pg MCHC 34 (32-36) % Plt Count 268 (150-400) K/uL Neut % (Auto) 80.8 H (36-66) % Lymph % (Auto) 11.7 L (24-44) % Carter % (Auto) 6.5 H (2-6) % Eos % (Auto) 0.6 L (2-4) % Baso % (Auto) 0.4 (0-1) % Sodium 133 L (140-148) mmol/L Potassium 4.1 (3.6-5.2) mmol/L Chloride 100 (100-108) mmol/L Carbon Dioxide 18 L (21-32) mmol/L Anion Gap 19.1 H (5.0-14.0) mmol/L BUN 19 H (7-18) mg/dL Creatinine 1.2 H (0.6-1.0) mg/dL Est Cr Clr Drug Dosing 38.94 mL/min Estimated GFR (MDRD) 46 L (>60) Glucose 478 H* (74-106) mg/dL Calcium 8.1 L (8.5-10.1) mg/dL Total Bilirubin 0.4 (0.2-1.0) mg/dL AST 11 L (15-37) U/L ALT 26 (12-78) U/L Alkaline Phosphatase 115 (46-116) U/L Total Protein 6.7 (6.4-8.2) g/dL Albumin 3.0 L (3.4-5.0) g/dL Globulin 3.7 H (2.3-3.5) g/dL Albumin/Globulin Ratio 0.8 L (1.2-2.2) Urine Color (YELLOW) Urine Appearance (CLEAR) Urine pH (5.0-8.0) Ur Specific [place] (1.008-1.030) Urine Protein (NEGATIVE) mg/dL Urine Glucose (UA) (NEGATIVE) mg/dL Urine Ketones (NEGATIVE) mg/dL Urine Occult Blood (NEGATIVE) Urine Nitrite (NEGATIVE) Urine Bilirubin (NEGATIVE) Urine Urobilinogen (0.2-1.0) EU/dL Ur Leukocyte Esterase (NEGATIVE) Urine RBC (0-5) Urine WBC (0-5) Ur Epithelial Cells Amorphous Sediment Urine Bacteria Urine Mucus Salicylates 3.7 (2.0-20.0) mg/dL Urine Opiates Screen (NEGATIVE) Ur Oxycodone Screen (NEGATIVE) Urine Methadone Screen (NEGATIVE) Ur Propoxyphene Screen (NEGATIVE) Acetaminophen 0.1 L (10.0-30.0) ug/mL Ur Barbiturates Screen (NEGATIVE) Ur Tricyclics Screen (NEGATIVE) Ur Phencyclidine Scrn (NEGATIVE) Ur Amphetamine Screen (NEGATIVE) U Methamphetamines Scrn (NEGATIVE) Urine MDMA Screen (NEGATIVE) U Benzodiazepines Scrn (NEGATIVE) U Cocaine Metab Screen (NEGATIVE) U Marijuana (THC) Screen (NEGATIVE) 11/30/20 11/30/20 11/30/20 Range/Units 10:22 10:22 10:39 WBC (4.5-11.0) K/uL RBC (3.30-5.50) M/uL Hgb (12.0-15.0) g/dL Hct (36.0-48.0) % MCV (80-98) fL MCH (27-31) pg MCHC (32-36) % Plt Count (150-400) K/uL Neut % (Auto) (36-66) % Lymph % (Auto) (24-44) % Carter % (Auto) (2-6) % Eos % (Auto) (2-4) % Baso % (Auto) (0-1) % Sodium 136 L (140-148) mmol/L Potassium 4.1 (3.6-5.2) mmol/L Chloride 101 (100-108) mmol/L Carbon Dioxide 23 (21-32) mmol/L Anion Gap 16.1 H (5.0-14.0) mmol/L BUN 18 (7-18) mg/dL Creatinine 1.0 (0.6-1.0) mg/dL Est Cr Clr Drug Dosing 46.72 mL/min Estimated GFR (MDRD) 56 L (>60) Glucose 495 H* (74-106) mg/dL Calcium 7.9 L (8.5-10.1) mg/dL Total Bilirubin (0.2-1.0) mg/dL AST (15-37) U/L ALT (12-78) U/L Alkaline Phosphatase (46-116) U/L Total Protein (6.4-8.2) g/dL Albumin (3.4-5.0) g/dL Globulin (2.3-3.5) g/dL Albumin/Globulin Ratio (1.2-2.2) Urine Color Yellow (YELLOW) Urine Appearance Clear (CLEAR) Urine pH 6.0 (5.0-8.0) Ur Specific [place] 1.015 (1.008-1.030) Urine Protein Negative (NEGATIVE) mg/dL Urine Glucose (UA) 500 H (NEGATIVE) mg/dL Urine Ketones Negative (NEGATIVE) mg/dL Urine Occult Blood Trace-intact H (NEGATIVE) Urine Nitrite Negative (NEGATIVE) Urine Bilirubin Negative (NEGATIVE) Urine Urobilinogen 0.2 (0.2-1.0) EU/dL Ur Leukocyte Esterase Negative (NEGATIVE) Urine RBC 0-5 (0-5) Urine WBC Not seen (0-5) Ur Epithelial Cells Few Amorphous Sediment Not seen Urine Bacteria Not seen Urine Mucus Not seen Salicylates (2.0-20.0) mg/dL Urine Opiates Screen Negative (NEGATIVE) Ur Oxycodone Screen Negative (NEGATIVE) Urine Methadone Screen Negative (NEGATIVE) Ur Propoxyphene Screen Negative (NEGATIVE) Acetaminophen (10.0-30.0) ug/mL Ur Barbiturates Screen Negative (NEGATIVE) Ur Tricyclics Screen Negative (NEGATIVE) Ur Phencyclidine Scrn Negative (NEGATIVE) Ur Amphetamine Screen Negative (NEGATIVE) U Methamphetamines Scrn Negative (NEGATIVE) Urine MDMA Screen Negative (NEGATIVE) U Benzodiazepines Scrn Negative (NEGATIVE) U Cocaine Metab Screen Negative (NEGATIVE) U Marijuana (THC) Screen Negative (NEGATIVE) Result Diagrams: 11/30/20 06:07 11/30/20 10:39 Imaging Impressions Last 24 hrs: CT of the head-images were personally reviewed-there is evidence for central resection of the right frontal lobe mass. There continues to be a small amount of mass-effect though less so than previous CT scan. There is a small amount of hemorrhage inside the resected area. There continues to be a fair amount of edema in the right frontal lobe surrounding the surgical site. Sepsis Event Note - Evaluation Sepsis Screening Result: No Definite Risk - Focused Exam Vital Signs: Vital Signs Temp Pulse Resp BP Pulse Ox 11/30/20 06:15 36.7 C 86 16 105/57 L 98 *Q Meaningful Use (ADM) - VTE *Q VTE Pharmacological Contraindications *Q: Risk of Bleeding (Small hemorrhage in right frontal lobe surgical site) - VTE Risk Assess *Q Each Risk Factor Represents 1 Point: History of prior major surgery less than 1 month, Obesity ( BMI > 25 kg/m2) Total Score 1 Point Risk Factors: 2 Each Risk Factor Represents 2 Points: Age 60 - 74 Years, Malignancy (present or previous) Total Score 2 Point Risk Factors: 4 Each Risk Factor Represents 3 Points: None Total Score 3 Point Risk Factors: 0 Each Risk Factor Represents 5 Points: None Total Score 5 Point Risk Factors: 0 Venous Thromboembolism Risk Factor Score *Q: 6 - Problem List (1) Breakthrough seizure SNOMED Code(s): 506848430 ICD Code: G40.919 - EPILEPSY, UNSP, INTRACTABLE, WITHOUT STATUS EPILEPTICUS Status: Acute Current Visit: Yes (2) Right frontal lobe mass SNOMED Code(s): 608261154 ICD Code: G93.89 - OTHER SPECIFIED DISORDERS OF BRAIN Status: Acute Curre nt Visit: Yes (3) Type 2 diabetes mellitus with hyperglycemia, with long-term current use of insulin SNOMED Code(s): 32321743, 055118638, 374878445 ICD Code: E11.65 - TYPE 2 DIABETES MELLITUS WITH HYPERGLYCEMIA; Z79.4 - INTERNAL COMMUNICATIONS INTERN (CURRENT) USE OF INSULIN Status: Acute Current Visit: Yes (4) Cognitive impairment SNOMED Code(s): 942382524 ICD Code: R41.89 - OTH SYMPTOMS AND SIGNS W COGNITIVE FUNCTIONS AND AWARENESS Status: Acute Current Visit: Yes Problem List Initiated/Reviewed/Updated: Yes Orders Last 24hrs: Active Orders 24 hr Category Date Time Status Patient Status Manage Transfer [TRANSFER] Routine ADT 11/30/20 12:27 Ordered Blood Glucose Check, Bedside [RC] BIDAC Care 11/30/20 08:19 Active LEVETIRACETAM (KEPPRA), S Urgent Lab 11/30/20 07:08 Received Dextrose 50% in Water Med 11/30/20 08:19 Active 50 ml IVPUSH ASDIRECTED PRN Dextrose 50% in Water Med 11/30/20 11:04 Active 50 ml IVPUSH ASDIRECTED PRN Glucagon,Human Recombinant [GlucaGen] Med 11/30/20 08:19 Active 1 mg IM ASDIRECTED PRN Glucagon,Human Recombinant [GlucaGen] Med 11/30/20 11:04 Active 1 mg IM ASDIRECTED PRN Insulin Glarg,Human.Rec.Analog [LantUS Solostar] Med 11/30/20 09:00 Active 15 units SUBCUT DAILY Resuscitation Status Routine Resus Stat 11/30/20 12:30 Ordered Medication Orders Dextrose/Water (50% Dextrose In Water 50 Ml Syringe) 50 ml IVPUSH ASDIRECTED PRN PRN Reason: Hypoglycemia Dextrose/Water (50% Dextrose In Water 50 Ml Syringe) 50 ml IVPUSH ASDIRECTED PRN PRN Reason: Hypoglycemia Glucagon (Glucagon,Human Recombinant 1 Mg Vial) 1 mg IM ASDIRECTED PRN PRN Reason: Hypoglycemia Glucagon (Glucagon,Human Recombinant 1 Mg Vial) 1 mg IM ASDIRECTED PRN PRN Reason: Hypoglycemia Insulin Glargine (Insulin Glargine,Human Rec. Analog 100 Units/Ml 3 Ml Pen) 15 units SUBCUT DAILY FRED Last Admin: 11/30/20 08:53 Dose: 15 unit Documented by: RUDY Cosigned by: XIAO Assessment/Plan Comment:: ASSESSMENT AND PLAN - Breakthrough seizure-recent diagnosis of brain tumor with recent surgery. She is having breakthrough seizures despite outpatient AED therapy. She did receive an IV load of Keppra in the emergency room. -Increase Keppra to 1000 mg twice daily -Monitor for additional seizures Right frontal lobe mass-patient's SO reports this is glioblastoma. She has cognitive impairment because of recent surgery. CT suggests ongoing edema with some frontal lobe mass-effect. This could explain behavior difficulties. She is already on steroids. -Continue steroids -Melatonin at bedtime -Physical therapy -Outpatient follow-up with neurosurgery/oncology Type 2 diabetes mellitus with hyperglycemia-patient has not been checking blood sugars and has not been compliant with insulin dosing. Significant other does not know enough about diabetes to help manage these things. Diagnosis of diabetes is relatively new. -Continue long-acting insulin 30 units daily -5 units of short acting insulin with each meal, titrate as needed -High-dose sliding scale insulin -Check sugars 4 times daily with meals and at bedtime Maintenance issues - -DVT prophylaxis-mechanical with small hemorrhage noted in recent surgical site -GI prophylaxis-twice daily PPI -Nutrition-consistent carbohydrates -Hernandez catheter-not indicated CODE STATUS -DNR/DNI Admission justification -this patient will be admitted for inpatient services and is medically appropriate meeting medical necessity for inpatient admission as outlined in my documentation. I reasonably expect the patient will require inpatient services that span a period time over 2 midnights. I reasonably expect this patient to be discharged or transferred within 96 hours [facility]. Disposition -[facility] [place] [facility] the hospital stay Primary care physician -Shweta Lemon M.D. - Mortality Measure Prognosis:: Poor
[2020-11-30] MEDS ORDERED: [UNRECOGNIZED DRUG - OTHER] PO PRN (13:29)
[2020-11-30] MEDS ORDERED: Albuterol 0.083% 2.5 MG/3 ML Neb Soln NEB PRN (13:29)
[2020-11-30] MEDS ORDERED: Ondansetron 4 MG Tab.DIS PO PRN (13:29)
[2020-11-30] MEDS ORDERED: Ondansetron 4 MG/2 ML SDV IV PRN (13:29)
[2020-11-30] MEDS ORDERED: Magnesium Hydroxide 400 MG/5 ML Susp 30 ML Cup PO PRN (13:29)
[2020-11-30] MEDS ORDERED: ACETAMINOPHEN PO PRN (13:29)
[2020-11-30] MEDS ORDERED: BUTALBITAL PO PRN (13:29)
[2020-11-30] MEDS ORDERED: CAFFEINE PO PRN (13:29)
[2020-11-30] MEDS: Sodium Chloride 0.9% 1,000 ML IV SCH ×2 (13:46→23:30)
[2020-11-30] MEDS: ALPRAZolam 0.5 MG Tab PO PRN (15:35)
[2020-11-30] MEDS: Pantoprazole 40 MG Tab.CR PO SCH (15:35)
[2020-11-30] MEDS: Dexamethasone 2 MG Tab PO SCH ×2 (15:35→21:26)
[2020-11-30] MEDS ORDERED: Insulin Lispro 100 Unit/ML 3 ML KwikPen SUBCUT SCH (17:00)
[2020-11-30] MEDS: Insulin Lispro 100 Unit/ML 3 ML KwikPen SUBCUT SCH ×2 (17:46→21:25)
[2020-11-30] MEDS: Aspirin 325 MG Tab.EC PO SCH (20:18)
[2020-11-30] MEDS: levETIRAcetam 250 MG Tab PO SCH (20:18)
[2020-11-30] MEDS: atorvaSTATin 20 MG Tab PO SCH (20:18)
[2020-11-30] MEDS: Prazosin 1 MG Cap PO SCH (20:19)
[2020-11-30] MEDS: Melatonin 3 MG Tab PO SCH (20:19)
[2020-11-30] MEDS: Acetaminophen 325 MG Tab PO PRN (20:24)
[2020-12-01] MEDS: ALPRAZolam 0.5 MG Tab PO PRN ×2 (00:26→21:49)
[2020-12-01] MEDS ORDERED: LORazepam 2 MG/ML SDV IVPUSH ONE (00:30)
[2020-12-01] MEDS: Sodium Chloride 0.9% 1,000 ML IV SCH (05:30)
[2020-12-01] MEDS: Dexamethasone 2 MG Tab PO SCH ×4 (05:54→21:27)
[2020-12-01] MEDS: FLUoxetine 20 MG Cap PO SCH (08:15)
[2020-12-01] MEDS: levETIRAcetam 250 MG Tab PO SCH ×2 (08:15→21:25)
[2020-12-01] MEDS: Levothyroxine 100 MCG, Levothyroxine 50 MCG, Levothyroxine 25 MCG PO SCH ×3 (08:16)
[2020-12-01] MEDS: Propranolol 60 MG Cap.ER PO SCH (08:16)
[2020-12-01] MEDS: Pantoprazole 40 MG Tab.CR PO SCH ×2 (08:16→17:14)
[2020-12-01] MEDS: Cyanocobalamin (Vitamin B12) 1,000 MCG Tab PO SCH (08:16)
[2020-12-01] MEDS: Insulin Lispro 100 Unit/ML 3 ML KwikPen SUBCUT SCH ×6 (08:18→21:27)
[2020-12-01] MEDS ORDERED: Insulin Glargine,Human Rec. Analog 100 Units/ML 3 ML Pen SUBCUT SCH (09:00)
--- NOTE | 2020-12-01 12:02 | PCM.PN ---
- General Info Date of Service: 12/01/20 Subjective Update: No acute events overnight. Patient remains impulsive and confused but is more steady on her feet. She is pleasant and interactive today. She does not complain of headache, nausea or abdominal pain. Blood sugars remain moderately elevated but are better than at the time of admission. She remains confused but is better able to communicate today. No recurrence of seizures since admission. Family is hoping that if she needs subacute rehab that she can be transferred to a facility closer to the family. Functional Status: Reports: Pain Controlled, Tolerating Diet - Review of Systems General: Reports: Weakness Neurological: Reports: Confusion - Patient Data Vitals - Most Recent: Last Vital Signs Temp 36.2 C 12/01/20 11:00 Pulse 76 12/01/20 11:00 Resp 16 12/01/20 11:00 BP 137/61 12/01/20 11:00 Pulse Ox 100 12/01/20 11:00 Weight - Most Recent: 70.216 kg I&O - Last 24 Hours: Intake & Output 11/30/20 12/01/20 12/01/20 22:59 06:59 14:59 Intake Total 1584 1164 260 Output Total 400 Balance 1584 764 260 Lab Results Last 24 Hours: Laboratory Results - last 24 hr 11/30/20 11/30/20 12/01/20 Range/Units 17:40 20:55 04:15 WBC 7.9 (4.5-11.0) K/uL RBC 4.03 (3.30-5.50) M/uL Hgb 11.5 L D (12.0-15.0) g/dL Hct 36.6 (36.0-48.0) % MCV 91 (80-98) fL MCH 29 (27-31) pg MCHC 31 L (32-36) % Plt Count 286 (150-400) K/uL Sodium (140-148) mmol/L Potassium (3.6-5.2) mmol/L Chloride (100-108) mmol/L Carbon Dioxide (21-32) mmol/L Anion Gap (5.0-14.0) mmol/L BUN (7-18) mg/dL Creatinine (0.6-1.0) mg/dL Est Cr Clr Drug Dosing mL/min Estimated GFR (MDRD) (>60) Glucose (74-106) mg/dL POC Glucose 82 343 H (74-106) mg/dL Calcium (8.5-10.1) mg/dL 12/01/20 12/01/20 12/01/20 Range/Units 04:15 07:28 11:25 WBC (4.5-11.0) K/uL RBC (3.30-5.50) M/uL Hgb (12.0-15.0) g/dL Hct (36.0-48.0) % MCV (80-98) fL MCH (27-31) pg MCHC (32-36) % Plt Count (150-400) K/uL Sodium 142 (140-148) mmol/L Potassium 3.9 (3.6-5.2) mmol/L Chloride 110 H (100-108) mmol/L Carbon Dioxide 20 L (21-32) mmol/L Anion Gap 15.9 H (5.0-14.0) mmol/L BUN 9 (7-18) mg/dL Creatinine 0.7 (0.6-1.0) mg/dL Est Cr Clr Drug Dosing 66.17 mL/min Estimated GFR (MDRD) > 60 (>60) Glucose 192 H (74-106) mg/dL POC Glucose 348 H 273 H (74-106) mg/dL Calcium 7.8 L (8.5-10.1) mg/dL Med Orders - Current: Current Medications Acetaminophen (Acetaminophen 325 Mg Tab) 650 mg PO Q4H PRN PRN Reason: Pain (Mild 1-3)/fever Last Admin: 11/30/20 20:24 Dose: 650 mg Documented by: Albuterol (Albuterol 0.083% 2.5 Mg/3 Ml Neb Soln) 2.5 mg NEB Q4H PRN PRN Reason: Shortness Of Breath/wheezing Alogliptin Benzoate (Alogliptin 12.5 Mg Tab) 25 mg PO DAILY [facility] Last Admin: 12/01/20 08:16 Dose: 25 mg Documented by: Alprazolam (Alprazolam 0.5 Mg Tab) 1 mg PO BID PRN PRN Reason: Anxiety Last Admin: 11/30/20 15:35 Dose: 1 mg Documented by: Aspirin (Aspirin 325 Mg Tab.Ec) 325 mg PO BEDTIME [facility] Last Admin: 11/30/20 20:18 Dose: 325 mg Documented by: Atorvastatin Calcium (Atorvastatin 20 Mg Tab) 40 mg PO BEDTIME [facility] Last Admin: 11/30/20 20:18 Dose: 40 mg Documented by: Cyanocobalamin (Cyanocobalamin (Vitamin B12) 1,000 Mcg Tab) 1,000 mcg PO DAILY [facility] Last Admin: 12/01/20 08:16 Dose: 1,000 mcg Documented by: Dexamethasone (Dexamethasone 2 Mg Tab) 2 mg PO QID [facility] Last Admin: 12/01/20 10:13 Dose: 2 mg Documented by: Fluoxetine HCl (Fluoxetine 20 Mg Cap) 80 mg PO DAILY [facility] Last Admin: 12/01/20 08:15 Dose: 80 mg Documented by: Insulin Glargine (Insulin Glargine,Human Rec. Analog 100 Units/Ml 3 Ml Pen) 30 units SUBCUT DAILY [facility] Last Admin: 12/01/20 08:17 Dose: 30 units Documented by: Insulin Human Lispro (Insulin Lispro 100 Unit/Ml 3 Ml Kwikpen) 8 unit SUBCUT TIDMEALS [facility] Insulin Human Lispro (Insulin Lispro 100 Unit/Ml 3 Ml Kwikpen) 0 unit SUBCUT QIDACANDBED [facility]; Protocol Levetiracetam (Levetiracetam 250 Mg Tab) 1,000 mg PO BID [facility] Last Admin: 12/01/20 08:15 Dose: 1,000 mg Documented by: Levothyroxine Sodium 100 mcg/Levothyroxine Sodium 50 mcg/Levothyroxine Sodium 25 mcg 175 mcg PO ACBREAKFAST [facility] Last Admin: 12/01/20 08:16 Dose: 175 mcg Documented by: Magnesium Hydroxide (Magnesium Hydroxide 400 Mg/5 Ml Susp 30 Ml Cup) 30 ml PO Q12H PRN PRN Reason: Constipation Melatonin (Melatonin 3 Mg Tab) 9 mg PO BEDTIME [facility] Last Admin: 11/30/20 20:19 Dose: 9 mg Documented by: Non-Formulary Medication (Acetaminophen/Butalbital/Caff [Fioricet 325-50-40 Mg]) 1 tab PO BID PRN PRN Reason: Headache Ondansetron HCl (Ondansetron 4 Mg/2 Ml Sdv) 4 mg IV Q6H PRN PRN Reason: Nausea/Vomiting Ondansetron HCl (Ondansetron 4 Mg Tab.Dis) 4 mg PO Q6H PRN PRN Reason: Nausea able to take PO Pantoprazole Sodium (Pantoprazole 40 Mg Tab.Cr) 40 mg PO BIDAC [facility] Last Admin: 12/01/20 08:16 Dose: 40 mg Documented by: Prazosin HCl (Prazosin 1 Mg Cap) 1 mg PO BEDTIME [facility] Last Admin: 11/30/20 20:19 Dose: 1 mg Documented by: Propranolol HCl (Propranolol 60 Mg Cap.Er) 60 mg PO DAILY [facility] Last Admin: 12/01/20 08:16 Dose: 60 mg Documented by: Senna/Docusate Sodium (Docusate Sodium/Sennosides 50-8.6 Mg Tab) 1 tab PO BID PRN PRN Reason: Constipation Discontinued Medications Dextrose/Water (50% Dextrose In Water 50 Ml Syringe) 50 ml IVPUSH ASDIRECTED PRN PRN Reason: Hypoglycemia Dextrose/Water (50% Dextrose In Water 50 Ml Syringe) 50 ml IVPUSH ASDIRECTED PRN PRN Reason: Hypoglycemia Glucagon (Glucagon,Human Recombinant 1 Mg Vial) 1 mg IM ASDIRECTED PRN PRN Reason: Hypoglycemia Glucagon (Glucagon,Human Recombinant 1 Mg Vial) 1 mg IM ASDIRECTED PRN PRN Reason: Hypoglycemia Lactated Ringer's (Ringers, Lactated) 1,000 mls @ 999 mls/hr IV BOLUS ONE Stop: 11/30/20 09:22 Last Admin: 11/30/20 08:55 Dose: 999 mls/hr Documented by: Levetiracetam 2,000 mg/ Sodium (Chloride) 270 mls @ 500 mls/hr IV ONETIME ONE Stop: 11/30/20 09:32 Last Admin: 11/30/20 08:55 Dose: 500 mls/hr Documented by: Sodium Chloride (Normal Saline) 1,000 mls @ 125 mls/hr IV ASDIRECTED [facility] Last Admin: 12/01/20 05:30 Dose: 125 mls/hr Documented by: Insulin Glargine (Insulin Glargine,Human Rec. Analog 100 Units/Ml 3 Ml Pen) 15 units SUBCUT DAILY [facility] Last Admin: 11/30/20 08:53 Dose: 15 unit Documented by: Insulin Human Lispro (Insulin Lispro 100 Unit/Ml 3 Ml Kwikpen) 0 unit SUBCUT QIDACANDBED [facility]; Protocol Last Admin: 12/01/20 11:40 Dose: 9 units Documented by: Insulin Human Lispro (Insulin Lispro 100 Unit/Ml 3 Ml Kwikpen) 5 unit SUBCUT TIDMEALS [facility] Last Admin: 11/30/20 17:47 Dose: Not Given Documented by: Insulin Human Regular (Insulin Regular, Human 100 Units/Ml 3 Ml Vial) 8 unit SUBCUT ONETIME ONE Stop: 11/30/20 08:20 Last Admin: 11/30/20 08:44 Dose: 8 unit Documented by: Insulin Human Regular (Insulin Regular, Human 100 Units/Ml 3 Ml Vial) 15 unit SUBCUT ONETIME ONE Stop: 11/30/20 11:05 Last Admin: 11/30/20 11:22 Dose: 15 units Documented by: Lorazepam (Lorazepam 2 Mg/Ml Sdv) 1 mg IVPUSH ONETIME ONE Stop: 12/01/20 00:31 Last Admin: 12/01/20 00:48 Dose: 1 mg Documented by: - Exam Quality Assessment: No: Supplemental Oxygen General: Alert, Cooperative, No Acute Distress. No: Oriented HEENT: Pupils Equal Lungs: Normal Respiratory Effort. No: Wheezing Cardiovascular: Regular Rate, Regular Rhythm GI/Abdominal Exam: Soft, No Distention Extremities: No Pedal Edema. No: Increased Warmth Skin: Warm, Dry Psy/Mental Status: Alert, Normal Affect - Patient Data Lab Results Last 24 hrs: Laboratory Results - last 24 hr 11/30/20 11/30/20 12/01/20 Range/Units 17:40 20:55 04:15 WBC 7.9 (4.5-11.0) K/uL RBC 4.03 (3.30-5.50) M/uL Hgb 11.5 L D (12.0-15.0) g/dL Hct 36.6 (36.0-48.0) % MCV 91 (80-98) fL MCH 29 (27-31) pg MCHC 31 L (32-36) % Plt Count 286 (150-400) K/uL Sodium (140-148) mmol/L Potassium (3.6-5.2) mmol/L Chloride (100-108) mmol/L Carbon Dioxide (21-32) mmol/L Anion Gap (5.0-14.0) mmol/L BUN (7-18) mg/dL Creatinine (0.6-1.0) mg/dL Est Cr Clr Drug Dosing mL/min Estimated GFR (MDRD) (>60) Glucose (74-106) mg/dL POC Glucose 82 343 H (74-106) mg/dL Calcium (8.5-10.1) mg/dL 12/01/20 12/01/20 12/01/20 Range/Units 04:15 07:28 11:25 WBC (4.5-11.0) K/uL RBC (3.30-5.50) M/uL Hgb (12.0-15.0) g/dL Hct (36.0-48.0) % MCV (80-98) fL MCH (27-31) pg MCHC (32-36) % Plt Count (150-400) K/uL Sodium 142 (140-148) mmol/L Potassium 3.9 (3.6-5.2) mmol/L Chloride 110 H (100-108) mmol/L Carbon Dioxide 20 L (21-32) mmol/L Anion Gap 15.9 H (5.0-14.0) mmol/L BUN 9 (7-18) mg/dL Creatinine 0.7 (0.6-1.0) mg/dL Est Cr Clr Drug Dosing 66.17 mL/min Estimated GFR (MDRD) > 60 (>60) Glucose 192 H (74-106) mg/dL POC Glucose 348 H 273 H (74-106) mg/dL Calcium 7.8 L (8.5-10.1) mg/dL Result Diagrams: 12/01/20 04:15 12/01/20 04:15 Sepsis Event Note - Evaluation Sepsis Screening Result: No Definite Risk - Focused Exam Vital Signs: Vital Signs Temp Pulse Resp BP Pulse Ox 12/01/20 11:00 36.2 C 76 16 137/61 100 12/01/20 07:00 36.4 C 75 18 106/46 L 100 12/01/20 03:15 35.9 C L 83 16 110/92 H 97 - Problem List & Annotations (1) Breakthrough seizure SNOMED Code(s): 363558347 Code(s): G40.919 - EPILEPSY, UNSP, INTRACTABLE, WITHOUT STATUS EPILEPTICUS Status: Acute Current Visit: Yes (2) Right frontal lobe mass SNOMED Code(s): 347856834 Code(s): G93.89 - OTHER SPECIFIED DISORDERS OF BRAIN Status: Acute Current Visit: Yes (3) Type 2 diabetes mellitus with hyperglycemia, with long-term current use of insulin SNOMED Code(s): 55933521, 461608505, 732366804 Code(s): E11.65 - TYPE 2 DIABETES MELLITUS WITH HYPERGLYCEMIA; Z79.4 - MCFP (CURRENT) USE OF INSULIN Status: Acute Current Visit: Yes (4) Cognitive impairment SNOMED Code(s): 303243662 Code(s): R41.89 - OTH SYMPTOMS AND SIGNS W COGNITIVE FUNCTIONS AND AWARENESS Status: Acute Current Visit: Yes - Problem List Review Problem List Initiated/Reviewed/Updated: Yes - My Orders Last 24 Hours: My Active Orders 11/30/20 12:30 Resuscitation Status Routine 11/30/20 13:29 Acetaminophen [TylenoL] 650 mg PO Q4H PRN Acetaminophen/Butalbital/Caff [Fioricet 325-50-40 MG] 1 tab PO BID PRN Albuterol [Proventil Neb Soln] 2.5 mg NEB Q4H PRN Docusate Sodium/Sennosides [Senna Plus] 1 tab PO BID PRN Magnesium Hydroxide [Milk of Magnesia] 30 ml PO Q12H PRN Ondansetron [Zofran ODT] 4 mg PO Q6H PRN Ondansetron [Zofran] 4 mg IV Q6H PRN Sodium Chloride 0.9% [Normal Saline] 1,000 ml IV ASDIRECTED 11/30/20 13:29 Patient Status [ADT] Routine Antiembolic Devices [RC] .Routine Communication Order [RC] PRN Communication Order [RC] PRN Diabetes Education [RC] Click to Edit Intake and Output [RC] QSHIFT Notify Provider Vital Signs [RC] ASDIRECTED Notify Provider [RC] PRN Oxygen Therapy [RC] PRN RT Aerosol Therapy [RC] ASDIRECTED Up With Assistance [RC] ASDIRECTED Vital Signs [RC] Q4H Sequential Compression Device [OM.PC] Routine 11/30/20 13:36 ALPRAZolam [Xanax] 1 mg PO BID PRN 11/30/20 16:00 dexAMETHasone 2 mg PO QID 11/30/20 16:30 Pantoprazole [ProTONIX] 40 mg PO BIDAC 11/30/20 Dinner Consistent Carbohydrate Diet [DIET] 11/30/20 21:00 Aspirin [Ecotrin] 325 mg PO BEDTIME Melatonin 9 mg PO BEDTIME Prazosin [Minpress] 1 mg PO BEDTIME atorvaSTATin [Lipitor] 40 mg PO BEDTIME levETIRAcetam [Keppra] 1,000 mg PO BID 12/01/20 07:00 PT Evaluation and Treatment [CONS] Routine 12/01/20 07:30 Levothyroxine [Synthroid] 175 mcg PO ACBREAKFAST 12/01/20 09:00 Alogliptin Benzoate [Alogliptin] 25 mg PO DAILY Cyanocobalamin (Vitamin B12) [Vitamin B12] 1,000 mcg PO DAILY FLUoxetine [PROzac] 80 mg PO DAILY Insulin Glarg,Human.Rec.Analog [LantUS Solostar] 30 units SUBCUT DAILY Propranolol [Inderal LA] 60 mg PO DAILY 12/01/20 11:59 Communication Order [RC] PRN Communication Order [RC] PRN 12/01/20 12:00 Insulin Lispro [HumaLOG] 8 unit SUBCUT TIDMEALS 12/01/20 12:01 Convert IV to Saline Lock [OM.PC] Routine 12/01/20 16:30 GLUCOSE POC LAB TO COLLECT JPM [POC] QIDACANDBED 12/01/20 17:00 Insulin Lispro [HumaLOG] See Protocol SUBCUT QIDACANDBED 12/01/20 21:00 GLUCOSE POC LAB TO COLLECT JPM [POC] QIDACANDBED 12/02/20 05:00 BASIC METABOLIC PANEL,BMP [CHEM] Timed 12/02/20 07:30 GLUCOSE POC LAB TO COLLECT JPM [POC] QIDACANDBED 12/02/20 11:30 GLUCOSE POC LAB TO COLLECT JPM [POC] QIDACANDBED 12/02/20 16:30 GLUCOSE POC LAB TO COLLECT JPM [POC] QIDACANDBED 12/02/20 21:00 GLUCOSE POC LAB TO COLLECT JPM [POC] QIDACANDBED 12/03/20 07:30 GLUCOSE POC LAB TO COLLECT JPM [POC] QIDACANDBED 12/03/20 11:30 GLUCOSE POC LAB TO COLLECT JPM [POC] QIDACANDBED 12/03/20 16:30 GLUCOSE POC LAB TO COLLECT JPM [POC] QIDACANDBED 12/03/20 21:00 GLUCOSE POC LAB TO COLLECT JPM [POC] QIDACANDBED 12/04/20 07:30 GLUCOSE POC LAB TO COLLECT JPM [POC] QIDACANDBED 12/04/20 11:30 GLUCOSE POC LAB TO COLLECT JPM [POC] QIDACANDBED 12/04/20 16:30 GLUCOSE POC LAB TO COLLECT JPM [POC] QIDACANDBED 12/04/20 21:00 GLUCOSE POC LAB TO COLLECT JPM [POC] QIDACANDBED 12/05/20 07:30 GLUCOSE POC LAB TO COLLECT JPM [POC] QIDACANDBED 12/05/20 11:30 GLUCOSE POC LAB TO COLLECT JPM [POC] QIDACANDBED 12/05/20 16:30 GLUCOSE POC LAB TO COLLECT JPM [POC] QIDACANDBED 12/05/20 21:00 GLUCOSE POC LAB TO COLLECT JPM [POC] QIDACANDBED 12/06/20 07:30 GLUCOSE POC LAB TO COLLECT JPM [POC] QIDACANDBED 12/06/20 11:30 GLUCOSE POC LAB TO COLLECT JPM [POC] QIDACANDBED 12/06/20 16:30 GLUCOSE POC LAB TO COLLECT JPM [POC] QIDACANDBED 12/06/20 21:00 GLUCOSE POC LAB TO COLLECT JPM [POC] QIDACANDBED 12/07/20 07:30 GLUCOSE POC LAB TO COLLECT JPM [POC] QIDACANDBED 12/07/20 11:30 GLUCOSE POC LAB TO COLLECT JPM [POC] QIDACANDBED 12/07/20 16:30 GLUCOSE POC LAB TO COLLECT JPM [POC] QIDACANDBED 12/07/20 21:00 GLUCOSE POC LAB TO COLLECT JPM [POC] QIDACANDBED 12/08/20 07:30 GLUCOSE POC LAB TO COLLECT JPM [POC] QIDACANDBED - Plan Plan:: ASSESSMENT AND PLAN - Breakthrough seizure-recent diagnosis of brain tumor with recent surgery. No recurrence since admission. -Increase Keppra to 1000 mg twice daily -Monitor for additional seizures Right frontal lobe IDH wild-type glioblastoma. She has cognitive impairment because of recent surgery. CT suggests ongoing edema with some frontal lobe mass-effect. Suspect behavior issues are related to recent surgery, tumor and edema. -Continue steroids -Melatonin at bedtime -Physical therapy -Outpatient follow-up with neurosurgery/oncology in [place] Type 2 diabetes mellitus with hyperglycemia-blood sugar control improving but suboptimally controlled at this time. -Increase long-acting insulin to 40 units daily -8 units of short acting insulin with each meal, titrate as needed -Medium-dose sliding scale insulin -Check sugars 4 times daily with meals and at bedtime Maintenance issues - -DVT prophylaxis-mechanical with small hemorrhage noted in recent surgical site -GI prophylaxis-twice daily PPI -Nutrition-consistent carbohydrates Disposition -I anticipate discharge to the custodial after the hospital stay Primary care physician -Shweta Lemon M.D.
[2020-12-01] MEDS: Acetaminophen 325 MG Tab PO PRN (17:16)
[2020-12-01] MEDS: Aspirin 325 MG Tab.EC PO SCH (21:24)
[2020-12-01] MEDS: Melatonin 3 MG Tab PO SCH (21:25)
[2020-12-01] MEDS: atorvaSTATin 20 MG Tab PO SCH (21:25)
[2020-12-01] MEDS: Prazosin 1 MG Cap PO SCH (21:26)
[2020-12-01] MEDS: Haloperidol 5 MG Tab PO PRN (23:10)
[2020-12-02] MEDS: Acetaminophen 325 MG Tab PO PRN ×4 (00:16→18:49)
[2020-12-02] MEDS ORDERED: Acetaminophen/Caffeine 500-65 MG Tab PO ONE (05:13)
[2020-12-02] MEDS ORDERED: Ibuprofen 600 MG Tab PO ONE (05:26)
[2020-12-02] MEDS: Dexamethasone 2 MG Tab PO SCH ×4 (05:49→21:33)
[2020-12-02] MEDS: Insulin Lispro 100 Unit/ML 3 ML KwikPen SUBCUT SCH ×7 (08:27→21:36)
[2020-12-02] MEDS: Pantoprazole 40 MG Tab.CR PO SCH ×2 (08:32→16:11)
[2020-12-02] MEDS: Levothyroxine 100 MCG, Levothyroxine 50 MCG, Levothyroxine 25 MCG PO SCH ×3 (08:33)
[2020-12-02] MEDS: Propranolol 60 MG Cap.ER PO SCH (08:34)
[2020-12-02] MEDS: FLUoxetine 20 MG Cap PO SCH (08:34)
[2020-12-02] MEDS: Cyanocobalamin (Vitamin B12) 1,000 MCG Tab PO SCH (08:34)
[2020-12-02] MEDS: levETIRAcetam 250 MG Tab PO SCH ×2 (08:34→21:31)
[2020-12-02] MEDS ORDERED: Insulin Glargine,Human Rec. Analog 100 Units/ML 3 ML Pen SUBCUT SCH (09:00)
--- NOTE | 2020-12-02 12:04 | PCM.PN ---
- General Info Date of Service: 12/02/20 Subjective Update: No acute events overnight. Patient has been impulsive but seems to be more steady on her feet. She remains oriented to person but not place. Still quite confused to recent and remote events. She does report a headache which is better than it was last night after receiving Tylenol, Toradol. No complaints of nausea or shortness of breath. Blood sugars are still moderately elevated but are slowly trending in the right direction. No recurrence of seizures. Functional Status: Reports: Pain Controlled, Tolerating Diet - Review of Systems General: Denies: Fever Psychiatric: Reports: Confusion - Patient Data Vitals - Most Recent: Last Vital Signs Temp 36.6 C 12/02/20 11:00 Pulse 72 12/02/20 11:00 Resp 16 12/02/20 11:00 BP 141/66 H 12/02/20 11:00 Pulse Ox 98 12/02/20 11:00 Weight - Most Recent: 70.216 kg I&O - Last 24 Hours: Intake & Output 12/01/20 12/02/20 12/02/20 22:59 06:59 14:59 Intake Total 400 200 300 Balance 400 200 300 Lab Results Last 24 Hours: Laboratory Results - last 24 hr 12/01/20 12/01/20 12/01/20 Range/Units 07:24 11:23 16:25 Sodium (140-148) mmol/L Potassium (3.6-5.2) mmol/L Chloride (100-108) mmol/L Carbon Dioxide (21-32) mmol/L Anion Gap (5.0-14.0) mmol/L BUN (7-18) mg/dL Creatinine (0.6-1.0) mg/dL Est Cr Clr Drug Dosing mL/min Estimated GFR (MDRD) (>60) Glucose (74-106) mg/dL POC Glucose 348 H 273 H 255 H (74-106) mg/dL Calcium (8.5-10.1) mg/dL 12/01/20 12/02/20 12/02/20 Range/Units 20:55 05:38 07:26 Sodium 142 (140-148) mmol/L Potassium 4.0 (3.6-5.2) mmol/L Chloride 109 H (100-108) mmol/L Carbon Dioxide 22 (21-32) mmol/L Anion Gap 15.0 H (5.0-14.0) mmol/L BUN 11 (7-18) mg/dL Creatinine 0.8 (0.6-1.0) mg/dL Est Cr Clr Drug Dosing 57.90 mL/min Estimated GFR (MDRD) > 60 (>60) Glucose 222 H (74-106) mg/dL POC Glucose 301 H 275 H (74-106) mg/dL Calcium 8.0 L (8.5-10.1) mg/dL 12/02/20 Range/Units 11:29 Sodium (140-148) mmol/L Potassium (3.6-5.2) mmol/L Chloride (100-108) mmol/L Carbon Dioxide (21-32) mmol/L Anion Gap (5.0-14.0) mmol/L BUN (7-18) mg/dL Creatinine (0.6-1.0) mg/dL Est Cr Clr Drug Dosing mL/min Estimated GFR (MDRD) (>60) Glucose (74-106) mg/dL POC Glucose 318 H (74-106) mg/dL Calcium (8.5-10.1) mg/dL Med Orders - Current: Current Medications Acetaminophen (Acetaminophen 325 Mg Tab) 650 mg PO Q4H PRN PRN Reason: Pain (Mild 1-3)/fever Last Admin: 12/02/20 10:06 Dose: 650 mg Documented by: Albuterol (Albuterol 0.083% 2.5 Mg/3 Ml Neb Soln) 2.5 mg NEB Q4H PRN PRN Reason: Shortness Of Breath/wheezing Alogliptin Benzoate (Alogliptin 12.5 Mg Tab) 25 mg PO DAILY [facility] Last Admin: 12/02/20 08:33 Dose: 25 mg Documented by: Alprazolam (Alprazolam 0.5 Mg Tab) 1 mg PO BID PRN PRN Reason: Anxiety Last Admin: 12/01/20 21:49 Dose: 1 mg Documented by: Aspirin (Aspirin 325 Mg Tab.Ec) 325 mg PO BEDTIME [facility] Last Admin: 12/01/20 21:24 Dose: 325 mg Documented by: Atorvastatin Calcium (Atorvastatin 20 Mg Tab) 40 mg PO BEDTIME [facility] Last Admin: 12/01/20 21:25 Dose: 40 mg Documented by: Cyanocobalamin (Cyanocobalamin (Vitamin B12) 1,000 Mcg Tab) 1,000 mcg PO DAILY [facility] Last Admin: 12/02/20 08:34 Dose: 1,000 mcg Documented by: Dexamethasone (Dexamethasone 2 Mg Tab) 2 mg PO QID [facility] Last Admin: 12/02/20 10:06 Dose: 2 mg Documented by: Fluoxetine HCl (Fluoxetine 20 Mg Cap) 80 mg PO DAILY [facility] Last Admin: 12/02/20 08:34 Dose: 80 mg Documented by: Haloperidol (Haloperidol 5 Mg Tab) 5 mg PO Q4H PRN PRN Reason: Agitation Last Admin: 12/01/20 23:10 Dose: 5 mg Documented by: Insulin Glargine (Insulin Glargine,Human Rec. Analog 100 Units/Ml 3 Ml Pen) 40 units SUBCUT DAILY [facility] Last Admin: 12/02/20 08:29 Dose: 40 units Documented by: Insulin Human Lispro (Insulin Lispro 100 Unit/Ml 3 Ml Kwikpen) 0 unit SUBCUT QIDACANDBED [facility]; Protocol Last Admin: 12/02/20 08:27 Dose: 6 units Documented by: Insulin Human Lispro (Insulin Lispro 100 Unit/Ml 3 Ml Kwikpen) 12 unit SUBCUT TIDMEALS [facility] Levetiracetam (Levetiracetam 250 Mg Tab) 1,000 mg PO BID [facility] Last Admin: 12/02/20 08:34 Dose: 1,000 mg Documented by: Levothyroxine Sodium 100 mcg/Levothyroxine Sodium 50 mcg/Levothyroxine Sodium 25 mcg 175 mcg PO ACBREAKFAST [facility] Last Admin: 12/02/20 08:33 Dose: 175 mcg Documented by: Magnesium Hydroxide (Magnesium Hydroxide 400 Mg/5 Ml Susp 30 Ml Cup) 30 ml PO Q12H PRN PRN Reason: Constipation Melatonin (Melatonin 3 Mg Tab) 9 mg PO BEDTIME [facility] Last Admin: 12/01/20 21:25 Dose: 9 mg Documented by: Non-Formulary Medication (Acetaminophen/Butalbital/Caff [Fioricet 325-50-40 Mg]) 1 tab PO BID PRN PRN Reason: Headache Ondansetron HCl (Ondansetron 4 Mg/2 Ml Sdv) 4 mg IV Q6H PRN PRN Reason: Nausea/Vomiting Ondansetron HCl (Ondansetron 4 Mg Tab.Dis) 4 mg PO Q6H PRN PRN Reason: Nausea able to take PO Pantoprazole Sodium (Pantoprazole 40 Mg Tab.Cr) 40 mg PO BIDAC [facility] Last Admin: 12/02/20 08:32 Dose: 40 mg Documented by: Prazosin HCl (Prazosin 1 Mg Cap) 1 mg PO BEDTIME [facility] Last Admin: 12/01/20 21:26 Dose: 1 mg Documented by: Propranolol HCl (Propranolol 60 Mg Cap.Er) 60 mg PO DAILY [facility] Last Admin: 12/02/20 08:34 Dose: 60 mg Documented by: Senna/Docusate Sodium (Docusate Sodium/Sennosides 50-8.6 Mg Tab) 1 tab PO BID PRN PRN Reason: Constipation Discontinued Medications Acetaminophen/Caffeine (Acetaminophen/Caffeine 500-65 Mg Tab) 1 tab PO NOW ONE Stop: 12/02/20 05:14 Last Admin: 12/02/20 06:27 Dose: Not Given Documented by: Dextrose/Water (50% Dextrose In Water 50 Ml Syringe) 50 ml IVPUSH ASDIRECTED PRN PRN Reason: Hypoglycemia Dextrose/Water (50% Dextrose In Water 50 Ml Syringe) 50 ml IVPUSH ASDIRECTED PRN PRN Reason: Hypoglycemia Glucagon (Glucagon,Human Recombinant 1 Mg Vial) 1 mg IM ASDIRECTED PRN PRN Reason: Hypoglycemia Glucagon (Glucagon,Human Recombinant 1 Mg Vial) 1 mg IM ASDIRECTED PRN PRN Reason: Hypoglycemia Lactated Ringer's (Ringers, Lactated) 1,000 mls @ 999 mls/hr IV BOLUS ONE Stop: 11/30/20 09:22 Last Admin: 11/30/20 08:55 Dose: 999 mls/hr Documented by: Levetiracetam 2,000 mg/ Sodium (Chloride) 270 mls @ 500 mls/hr IV ONETIME ONE Stop: 11/30/20 09:32 Last Admin: 11/30/20 08:55 Dose: 500 mls/hr Documented by: Sodium Chloride (Normal Saline) 1,000 mls @ 125 mls/hr IV ASDIRECTED [facility] Last Admin: 12/01/20 05:30 Dose: 125 mls/hr Documented by: Ibuprofen (Ibuprofen 600 Mg Tab) 600 mg PO ONETIME ONE Stop: 12/02/20 05:27 Last Admin: 12/02/20 05:48 Dose: 600 mg Documented by: Insulin Glargine (Insulin Glargine,Human Rec. Analog 100 Units/Ml 3 Ml Pen) 15 units SUBCUT DAILY [facility] Last Admin: 11/30/20 08:53 Dose: 15 unit Documented by: Insulin Glargine (Insulin Glargine,Human Rec. Analog 100 Units/Ml 3 Ml Pen) 30 units SUBCUT DAILY [facility] Last Admin: 12/01/20 08:17 Dose: 30 units Documented by: Insulin Human Lispro (Insulin Lispro 100 Unit/Ml 3 Ml Kwikpen) 0 unit SUBCUT QIDACANDBED [facility]; Protocol Last Admin: 12/01/20 11:40 Dose: 9 units Documented by: Insulin Human Lispro (Insulin Lispro 100 Unit/Ml 3 Ml Kwikpen) 5 unit SUBCUT TIDMEALS [facility] Last Admin: 11/30/20 17:47 Dose: Not Given Documented by: Insulin Human Lispro (Insulin Lispro 100 Unit/Ml 3 Ml Kwikpen) 8 unit SUBCUT TIDMEALS [facility] Last Admin: 12/02/20 10:33 Dose: Not Given Documented by: Insulin Human Regular (Insulin Regular, Human 100 Units/Ml 3 Ml Vial) 8 unit SUBCUT ONETIME ONE Stop: 11/30/20 08:20 Last Admin: 11/30/20 08:44 Dose: 8 unit Documented by: Insulin Human Regular (Insulin Regular, Human 100 Units/Ml 3 Ml Vial) 15 unit SUBCUT ONETIME ONE Stop: 11/30/20 11:05 Last Admin: 11/30/20 11:22 Dose: 15 units Documented by: Lorazepam (Lorazepam 2 Mg/Ml Sdv) 1 mg IVPUSH ONETIME ONE Stop: 12/01/20 00:31 Last Admin: 12/01/20 00:48 Dose: 1 mg Documented by: - Exam Quality Assessment: No: Supplemental Oxygen General: Alert, Cooperative, No Acute Distress. No: Oriented HEENT: Pupils Equal Lungs: Normal Respiratory Effort GI/Abdominal Exam: Soft, No Distention Extremities: No Pedal Edema Psy/Mental Status: Alert, Normal Affect - Patient Data Lab Results Last 24 hrs: Laboratory Results - last 24 hr 12/01/20 12/01/20 12/01/20 Range/Units 07:24 11:23 16:25 Sodium (140-148) mmol/L Potassium (3.6-5.2) mmol/L Chloride (100-108) mmol/L Carbon Dioxide (21-32) mmol/L Anion Gap (5.0-14.0) mmol/L BUN (7-18) mg/dL Creatinine (0.6-1.0) mg/dL Est Cr Clr Drug Dosing mL/min Estimated GFR (MDRD) (>60) Glucose (74-106) mg/dL POC Glucose 348 H 273 H 255 H (74-106) mg/dL Calcium (8.5-10.1) mg/dL 12/01/20 12/02/20 12/02/20 Range/Units 20:55 05:38 07:26 Sodium 142 (140-148) mmol/L Potassium 4.0 (3.6-5.2) mmol/L Chloride 109 H (100-108) mmol/L Carbon Dioxide 22 (21-32) mmol/L Anion Gap 15.0 H (5.0-14.0) mmol/L BUN 11 (7-18) mg/dL Creatinine 0.8 (0.6-1.0) mg/dL Est Cr Clr Drug Dosing 57.90 mL/min Estimated GFR (MDRD) > 60 (>60) Glucose 222 H (74-106) mg/dL POC Glucose 301 H 275 H (74-106) mg/dL Calcium 8.0 L (8.5-10.1) mg/dL 12/02/20 Range/Units 11:29 Sodium (140-148) mmol/L Potassium (3.6-5.2) mmol/L Chloride (100-108) mmol/L Carbon Dioxide (21-32) mmol/L Anion Gap (5.0-14.0) mmol/L BUN (7-18) mg/dL Creatinine (0.6-1.0) mg/dL Est Cr Clr Drug Dosing mL/min Estimated GFR (MDRD) (>60) Glucose (74-106) mg/dL POC Glucose 318 H (74-106) mg/dL Calcium (8.5-10.1) mg/dL Result Diagrams: 12/01/20 04:15 12/02/20 05:38 Sepsis Event Note - Evaluation Sepsis Screening Result: No Definite Risk - Focused Exam Vital Signs: Vital Signs Temp Pulse Resp BP Pulse Ox 12/02/20 11:00 36.6 C 72 16 141/66 H 98 12/02/20 07:50 35.8 C L 68 20 128/49 L 98 12/02/20 02:48 36.1 C 63 18 118/43 L 99 - Problem List & Annotations (1) Breakthrough seizure SNOMED Code(s): 124815169 Code(s): G40.919 - EPILEPSY, UNSP, INTRACTABLE, WITHOUT STATUS EPILEPTICUS Status: Acute Current Visit: Yes (2) Right frontal lobe mass SNOMED Code(s): 629009769 Code(s): G93.89 - OTHER SPECIFIED DISORDERS OF BRAIN Status: Acute Current Visit: Yes (3) Type 2 diabetes mellitus with hyperglycemia, with long-term current use of insulin SNOMED Code(s): 07759096, 593806088, 277226810 Code(s): E11.65 - TYPE 2 DIABETES MELLITUS WITH HYPERGLYCEMIA; Z79.4 - CREAM GATHERER (CURRENT) USE OF INSULIN Status: Acute Current Visit: Yes (4) Cognitive impairment SNOMED Code(s): 507126047 Code(s): R41.89 - OTH SYMPTOMS AND SIGNS W COGNITIVE FUNCTIONS AND AWARENESS Status: Acute Current Visit: Yes - Problem List Review Problem List Initiated/Reviewed/Updated: Yes - My Orders Last 24 Hours: My Active Orders 12/01/20 11:59 Communication Order [RC] PRN Communication Order [RC] PRN 12/01/20 12:01 Convert IV to Saline Lock [OM.PC] Routine 12/01/20 17:00 Insulin Lispro [HumaLOG] See Protocol SUBCUT QIDACANDBED 12/01/20 23:02 haloperidoL [Haldol] 5 mg PO Q4H PRN 12/02/20 09:00 Insulin Glarg,Human.Rec.Analog [LantUS Solostar] 40 units SUBCUT DAILY 12/02/20 12:00 Insulin Lispro [HumaLOG] 12 unit SUBCUT TIDMEALS 12/02/20 16:30 GLUCOSE POC LAB TO COLLECT JPM [POC] QIDACANDBED 12/02/20 21:00 GLUCOSE POC LAB TO COLLECT JPM [POC] QIDACANDBED 12/03/20 07:30 GLUCOSE POC LAB TO COLLECT JPM [POC] QIDACANDBED 12/03/20 11:30 GLUCOSE POC LAB TO COLLECT JPM [POC] QIDACANDBED 12/03/20 16:30 GLUCOSE POC LAB TO COLLECT JPM [POC] QIDACANDBED 12/03/20 21:00 GLUCOSE POC LAB TO COLLECT JPM [POC] QIDACANDBED 12/04/20 07:30 GLUCOSE POC LAB TO COLLECT JPM [POC] QIDACANDBED 12/04/20 11:30 GLUCOSE POC LAB TO COLLECT JPM [POC] QIDACANDBED 12/04/20 16:30 GLUCOSE POC LAB TO COLLECT JPM [POC] QIDACANDBED 12/04/20 21:00 GLUCOSE POC LAB TO COLLECT JPM [POC] QIDACANDBED 12/05/20 07:30 GLUCOSE POC LAB TO COLLECT JPM [POC] QIDACANDBED 12/05/20 11:30 GLUCOSE POC LAB TO COLLECT JPM [POC] QIDACANDBED 12/05/20 16:30 GLUCOSE POC LAB TO COLLECT JPM [POC] QIDACANDBED 12/05/20 21:00 GLUCOSE POC LAB TO COLLECT JPM [POC] QIDACANDBED 12/06/20 07:30 GLUCOSE POC LAB TO COLLECT JPM [POC] QIDACANDBED 12/06/20 11:30 GLUCOSE POC LAB TO COLLECT JPM [POC] QIDACANDBED 12/06/20 16:30 GLUCOSE POC LAB TO COLLECT JPM [POC] QIDACANDBED 12/06/20 21:00 GLUCOSE POC LAB TO COLLECT JPM [POC] QIDACANDBED 12/07/20 07:30 GLUCOSE POC LAB TO COLLECT JPM [POC] QIDACANDBED 12/07/20 11:30 GLUCOSE POC LAB TO COLLECT JPM [POC] QIDACANDBED 12/07/20 16:30 GLUCOSE POC LAB TO COLLECT JPM [POC] QIDACANDBED 12/07/20 21:00 GLUCOSE POC LAB TO COLLECT JPM [POC] QIDACANDBED 12/08/20 07:30 GLUCOSE POC LAB TO COLLECT JPM [POC] QIDACANDBED - Plan Plan:: ASSESSMENT AND PLAN - Breakthrough seizure-recent diagnosis of brain tumor with recent surgery. No recurrence since admission. -Increase Keppra to 1000 mg twice daily -Monitor for additional seizures Right frontal lobe IDH wild-type glioblastoma. She has cognitive impairment because of recent surgery. CT suggests ongoing edema with some frontal lobe mass-effect. Suspect behavior issues are related to recent surgery, tumor and edema. -Continue steroids -Melatonin at bedtime -Physical therapy -Outpatient follow-up with neurosurgery/oncology in [place] Type 2 diabetes mellitus with hyperglycemia-blood sugar control improving but still suboptimally controlled at this time. -Increase long-acting insulin to 40 units daily -12 units of short acting insulin with each meal, titrate as needed -Medium-dose sliding scale insulin -Check sugars 4 times daily with meals and at bedtime Maintenance issues - -DVT prophylaxis-mechanical with small hemorrhage noted in recent surgical site -GI prophylaxis-twice daily PPI -Nutrition-consistent carbohydrates Disposition -I anticipate discharge to the [facility] after the hospital stay Primary care physician -Shweta Lemon M.D.
[2020-12-02] MEDS: atorvaSTATin 20 MG Tab PO SCH (21:32)
[2020-12-02] MEDS: Melatonin 3 MG Tab PO SCH (21:33)
[2020-12-02] MEDS: Prazosin 1 MG Cap PO SCH (21:33)
[2020-12-02] MEDS: Aspirin 325 MG Tab.EC PO SCH (21:34)
[2020-12-03] MEDS: Acetaminophen 325 MG Tab PO PRN (01:31)
[2020-12-03] MEDS: Haloperidol 5 MG Tab PO PRN (01:31)
[2020-12-03] MEDS: Dexamethasone 2 MG Tab PO SCH ×3 (05:19→21:15)
[2020-12-03] MEDS: Cyanocobalamin (Vitamin B12) 1,000 MCG Tab PO SCH (08:15)
[2020-12-03] MEDS: Propranolol 60 MG Cap.ER PO SCH (08:15)
[2020-12-03] MEDS: Pantoprazole 40 MG Tab.CR PO SCH ×2 (08:16→15:31)
[2020-12-03] MEDS: Levothyroxine 100 MCG, Levothyroxine 50 MCG, Levothyroxine 25 MCG PO SCH ×3 (08:16)
[2020-12-03] MEDS: levETIRAcetam 250 MG Tab PO SCH ×2 (08:16→21:16)
[2020-12-03] MEDS: FLUoxetine 20 MG Cap PO SCH (08:16)
[2020-12-03] MEDS: Insulin Lispro 100 Unit/ML 3 ML KwikPen SUBCUT SCH ×8 (08:23→21:21)
[2020-12-03] MEDS: Insulin Glargine,Human Rec. Analog 100 Units/ML 3 ML Pen SUBCUT SCH (08:24)
[2020-12-03] MEDS ORDERED: oxyCODONE 5 MG Tab PO PRN (11:23)
--- NOTE | 2020-12-03 11:24 | PCM.PN ---
- General Info Date of Service: 12/03/20 Subjective Update: There were no acute events overnight. Patient reports that she feels fairly well. She continues to be confused and was thinking she was in [place] today rather than [place]. She has not had any fevers. She had some difficulty with a headache last night that kept her from sleeping but no headache this morning. No nausea or vomiting. Blood sugars are still moderately elevated despite adjustments in insulin dosing. Functional Status: Reports: Pain Controlled, Tolerating Diet - Review of Systems General: Reports: Weakness Neurological: Reports: Headache - Patient Data Vitals - Most Recent: Last Vital Signs Temp 36.5 C 12/03/20 11:00 Pulse 74 12/03/20 11:00 Resp 16 12/03/20 11:00 BP 127/53 L 12/03/20 11:00 Pulse Ox 98 12/03/20 11:00 Weight - Most Recent: 70.216 kg I&O - Last 24 Hours: Intake & Output 12/02/20 12/03/20 12/03/20 22:59 06:59 14:59 Intake Total 480 Balance 480 Lab Results Last 24 Hours: Laboratory Results - last 24 hr 12/02/20 12/02/20 12/02/20 Range/Units 11:29 16:21 20:50 POC Glucose 318 H 356 H 244 H (74-106) mg/dL 12/03/20 12/03/20 Range/Units 07:13 11:21 POC Glucose 259 H 358 H (74-106) mg/dL Med Orders - Current: Current Medications Acetaminophen (Acetaminophen 325 Mg Tab) 650 mg PO Q4H PRN PRN Reason: Pain (Mild 1-3)/fever Last Admin: 12/03/20 01:31 Dose: 650 mg Documented by: Acetaminophen/Caffeine (Acetaminophen/Caffeine 500-65 Mg Tab) 1 tab PO Q6HR PRN PRN Reason: Headache Albuterol (Albuterol 0.083% 2.5 Mg/3 Ml Neb Soln) 2.5 mg NEB Q4H PRN PRN Reason: Shortness Of Breath/wheezing Alogliptin Benzoate (Alogliptin 12.5 Mg Tab) 25 mg PO DAILY [facility] Last Admin: 12/03/20 08:15 Dose: 25 mg Documented by: Alprazolam (Alprazolam 0.5 Mg Tab) 1 mg PO BID PRN PRN Reason: Anxiety Last Admin: 12/01/20 21:49 Dose: 1 mg Documented by: Aspirin (Aspirin 325 Mg Tab.Ec) 325 mg PO BEDTIME [facility] Last Admin: 12/02/20 21:34 Dose: 325 mg Documented by: Atorvastatin Calcium (Atorvastatin 20 Mg Tab) 40 mg PO BEDTIME [facility] Last Admin: 12/02/20 21:32 Dose: 40 mg Documented by: Cyanocobalamin (Cyanocobalamin (Vitamin B12) 1,000 Mcg Tab) 1,000 mcg PO DAILY [facility] Last Admin: 12/03/20 08:15 Dose: 1,000 mcg Documented by: Dexamethasone (Dexamethasone 2 Mg Tab) 2 mg PO TID [facility] Fluoxetine HCl (Fluoxetine 20 Mg Cap) 80 mg PO DAILY [facility] Last Admin: 12/03/20 08:16 Dose: 80 mg Documented by: Haloperidol (Haloperidol 5 Mg Tab) 5 mg PO Q4H PRN PRN Reason: Agitation Last Admin: 12/03/20 01:31 Dose: 5 mg Documented by: Insulin Glargine (Insulin Glargine,Human Rec. Analog 100 Units/Ml 3 Ml Pen) 50 units SUBCUT DAILY [facility] Last Admin: 12/03/20 08:24 Dose: 50 units Documented by: Insulin Human Lispro (Insulin Lispro 100 Unit/Ml 3 Ml Kwikpen) 0 unit SUBCUT QIDACANDBED [facility]; Protocol Last Admin: 12/03/20 08:23 Dose: 6 units Documented by: Insulin Human Lispro (Insulin Lispro 100 Unit/Ml 3 Ml Kwikpen) 15 unit SUBCUT TIDMEALS [facility] Last Admin: 12/03/20 08:29 Dose: 15 units Documented by: Levetiracetam (Levetiracetam 250 Mg Tab) 1,000 mg PO BID [facility] Last Admin: 12/03/20 08:16 Dose: 1,000 mg Documented by: Levothyroxine Sodium 100 mcg/Levothyroxine Sodium 50 mcg/Levothyroxine Sodium 25 mcg 175 mcg PO ACBREAKFAST [facility] Last Admin: 12/03/20 08:16 Dose: 175 mcg Documented by: Magnesium Hydroxide (Magnesium Hydroxide 400 Mg/5 Ml Susp 30 Ml Cup) 30 ml PO Q12H PRN PRN Reason: Constipation Melatonin (Melatonin 3 Mg Tab) 9 mg PO BEDTIME [facility] Last Admin: 12/02/20 21:33 Dose: 9 mg Documented by: Ondansetron HCl (Ondansetron 4 Mg/2 Ml Sdv) 4 mg IV Q6H PRN PRN Reason: Nausea/Vomiting Ondansetron HCl (Ondansetron 4 Mg Tab.Dis) 4 mg PO Q6H PRN PRN Reason: Nausea able to take PO Oxycodone HCl (Oxycodone 5 Mg Tab) 5 mg PO Q6H PRN PRN Reason: Headache Pantoprazole Sodium (Pantoprazole 40 Mg Tab.Cr) 40 mg PO BIDAC [facility] Last Admin: 12/03/20 08:16 Dose: 40 mg Documented by: Prazosin HCl (Prazosin 1 Mg Cap) 1 mg PO BEDTIME [facility] Last Admin: 12/02/20 21:33 Dose: 1 mg Documented by: Propranolol HCl (Propranolol 60 Mg Cap.Er) 60 mg PO DAILY [facility] Last Admin: 12/03/20 08:15 Dose: 60 mg Documented by: Senna/Docusate Sodium (Docusate Sodium/Sennosides 50-8.6 Mg Tab) 1 tab PO BID PRN PRN Reason: Constipation Discontinued Medications Acetaminophen/Caffeine (Acetaminophen/Caffeine 500-65 Mg Tab) 1 tab PO NOW ONE Stop: 12/02/20 05:14 Last Admin: 12/02/20 06:27 Dose: Not Given Documented by: Dexamethasone (Dexamethasone 2 Mg Tab) 2 mg PO QID [facility] Last Admin: 12/03/20 10:52 Dose: 2 mg Documented by: Dextrose/Water (50% Dextrose In Water 50 Ml Syringe) 50 ml IVPUSH ASDIRECTED PRN PRN Reason: Hypoglycemia Dextrose/Water (50% Dextrose In Water 50 Ml Syringe) 50 ml IVPUSH ASDIRECTED PRN PRN Reason: Hypoglycemia Glucagon (Glucagon,Human Recombinant 1 Mg Vial) 1 mg IM ASDIRECTED PRN PRN Reason: Hypoglycemia Glucagon (Glucagon,Human Recombinant 1 Mg Vial) 1 mg IM ASDIRECTED PRN PRN Reason: Hypoglycemia Lactated Ringer's (Ringers, Lactated) 1,000 mls @ 999 mls/hr IV BOLUS ONE Stop: 11/30/20 09:22 Last Admin: 11/30/20 08:55 Dose: 999 mls/hr Documented by: Levetiracetam 2,000 mg/ Sodium (Chloride) 270 mls @ 500 mls/hr IV ONETIME ONE Stop: 11/30/20 09:32 Last Admin: 11/30/20 08:55 Dose: 500 mls/hr Documented by: Sodium Chloride (Normal Saline) 1,000 mls @ 125 mls/hr IV ASDIRECTED [facility] Last Admin: 12/01/20 05:30 Dose: 125 mls/hr Documented by: Ibuprofen (Ibuprofen 600 Mg Tab) 600 mg PO ONETIME ONE Stop: 12/02/20 05:27 Last Admin: 12/02/20 05:48 Dose: 600 mg Documented by: Insulin Glargine (Insulin Glargine,Human Rec. Analog 100 Units/Ml 3 Ml Pen) 15 units SUBCUT DAILY [facility] Last Admin: 11/30/20 08:53 Dose: 15 unit Documented by: Insulin Glargine (Insulin Glargine,Human Rec. Analog 100 Units/Ml 3 Ml Pen) 30 units SUBCUT DAILY [facility] Last Admin: 12/01/20 08:17 Dose: 30 units Documented by: Insulin Glargine (Insulin Glargine,Human Rec. Analog 100 Units/Ml 3 Ml Pen) 40 units SUBCUT DAILY [facility] Last Admin: 12/02/20 08:29 Dose: 40 units Documented by: Insulin Human Lispro (Insulin Lispro 100 Unit/Ml 3 Ml Kwikpen) 0 unit SUBCUT QIDACANDBED [facility]; Protocol Last Admin: 12/01/20 11:40 Dose: 9 units Documented by: Insulin Human Lispro (Insulin Lispro 100 Unit/Ml 3 Ml Kwikpen) 5 unit SUBCUT TIDMEALS [facility] Last Admin: 11/30/20 17:47 Dose: Not Given Documented by: Insulin Human Lispro (Insulin Lispro 100 Unit/Ml 3 Ml Kwikpen) 8 unit SUBCUT TIDMEALS [facility] Last Admin: 12/02/20 10:33 Dose: Not Given Documented by: Insulin Human Lispro (Insulin Lispro 100 Unit/Ml 3 Ml Kwikpen) 12 unit SUBCUT TIDMEALS [facility] Last Admin: 12/03/20 08:33 Dose: Not Given Documented by: Insulin Human Regular (Insulin Regular, Human 100 Units/Ml 3 Ml Vial) 8 unit SUBCUT ONETIME ONE Stop: 11/30/20 08:20 Last Admin: 11/30/20 08:44 Dose: 8 unit Documented by: Insulin Human Regular (Insulin Regular, Human 100 Units/Ml 3 Ml Vial) 15 unit SUBCUT ONETIME ONE Stop: 11/30/20 11:05 Last Admin: 11/30/20 11:22 Dose: 15 units Documented by: Lorazepam (Lorazepam 2 Mg/Ml Sdv) 1 mg IVPUSH ONETIME ONE Stop: 12/01/20 00:31 Last Admin: 12/01/20 00:48 Dose: 1 mg Documented by: Non-Formulary Medication (Acetaminophen/Butalbital/Caff [Fioricet 325-50-40 Mg]) 1 tab PO BID PRN PRN Reason: Headache - Exam Quality Assessment: No: Supplemental Oxygen General: Alert, Cooperative, No Acute Distress HEENT: Pupils Equal Lungs: Normal Respiratory Effort GI/Abdominal Exam: Soft, No Distention Extremities: No Pedal Edema Psy/Mental Status: Alert, Normal Affect - Patient Data Lab Results Last 24 hrs: Laboratory Results - last 24 hr 12/02/20 12/02/20 12/02/20 Range/Units 11:29 16:21 20:50 POC Glucose 318 H 356 H 244 H (74-106) mg/dL 12/03/20 12/03/20 Range/Units 07:13 11:21 POC Glucose 259 H 358 H (74-106) mg/dL Result Diagrams: 12/01/20 04:15 12/02/20 05:38 Sepsis Event Note - Evaluation Sepsis Screening Result: No Definite Risk - Focused Exam Vital Signs: Vital Signs Temp Pulse Resp BP Pulse Ox 12/03/20 11:00 36.5 C 74 16 127/53 L 98 12/03/20 07:19 36.2 C 86 16 129/54 L 99 12/03/20 04:55 35.9 C L 63 18 132/42 L 98 - Problem List & Annotations (1) Breakthrough seizure SNOMED Code(s): 479193582 Code(s): G40.919 - EPILEPSY, UNSP, INTRACTABLE, WITHOUT STATUS EPILEPTICUS Status: Acute Current Visit: Yes (2) Right frontal lobe mass SNOMED Code(s): 893580751 Code(s): G93.89 - OTHER SPECIFIED DISORDERS OF BRAIN Status: Acute Current Visit: Yes (3) Type 2 diabetes mellitus with hyperglycemia, with long-term current use of insulin SNOMED Code(s): 29765947, 044036971, 048042725 Code(s): E11.65 - TYPE 2 DIABETES MELLITUS WITH HYPERGLYCEMIA; Z79.4 - SNF (CURRENT) USE OF INSULIN Status: Acute Current Visit: Yes (4) Cognitive impairment SNOMED Code(s): 439908532 Code(s): R41.89 - OTH SYMPTOMS AND SIGNS W COGNITIVE FUNCTIONS AND AWARENESS Status: Acute Current Visit: Yes - Problem List Review Problem List Initiated/Reviewed/Updated: Yes - My Orders Last 24 Hours: My Active Orders 12/03/20 08:00 Insulin Lispro [HumaLOG] 15 unit SUBCUT TIDMEALS 12/03/20 09:00 Insulin Glarg,Human.Rec.Analog [LantUS Solostar] 50 units SUBCUT DAILY 12/03/20 11:22 Acetaminophen/Caffeine [Excedrin Tension Headache] 1 tab PO Q6HR PRN 12/03/20 11:23 oxyCODONE 5 mg PO Q6H PRN 12/03/20 11:30 GLUCOSE POC LAB TO COLLECT JPM [POC] QIDACANDBED 12/03/20 16:30 GLUCOSE POC LAB TO COLLECT JPM [POC] QIDACANDBED 12/03/20 21:00 GLUCOSE POC LAB TO COLLECT JPM [POC] QIDACANDBED dexAMETHasone 2 mg PO TID 12/04/20 07:30 GLUCOSE POC LAB TO COLLECT JPM [POC] QIDACANDBED 12/04/20 11:30 GLUCOSE POC LAB TO COLLECT JPM [POC] QIDACANDBED 12/04/20 16:30 GLUCOSE POC LAB TO COLLECT JPM [POC] QIDACANDBED 12/04/20 21:00 GLUCOSE POC LAB TO COLLECT JPM [POC] QIDACANDBED 12/05/20 07:30 GLUCOSE POC LAB TO COLLECT JPM [POC] QIDACANDBED 12/05/20 11:30 GLUCOSE POC LAB TO COLLECT JPM [POC] QIDACANDBED 12/05/20 16:30 GLUCOSE POC LAB TO COLLECT JPM [POC] QIDACANDBED 12/05/20 21:00 GLUCOSE POC LAB TO COLLECT JPM [POC] QIDACANDBED 12/06/20 07:30 GLUCOSE POC LAB TO COLLECT JPM [POC] QIDACANDBED 12/06/20 11:30 GLUCOSE POC LAB TO COLLECT JPM [POC] QIDACANDBED 12/06/20 16:30 GLUCOSE POC LAB TO COLLECT JPM [POC] QIDACANDBED 12/06/20 21:00 GLUCOSE POC LAB TO COLLECT JPM [POC] QIDACANDBED 12/07/20 07:30 GLUCOSE POC LAB TO COLLECT JPM [POC] QIDACANDBED 12/07/20 11:30 GLUCOSE POC LAB TO COLLECT JPM [POC] QIDACANDBED 12/07/20 16:30 GLUCOSE POC LAB TO COLLECT JPM [POC] QIDACANDBED 12/07/20 21:00 GLUCOSE POC LAB TO COLLECT JPM [POC] QIDACANDBED 12/08/20 07:30 GLUCOSE POC LAB TO COLLECT JPM [POC] QIDACANDBED - Plan Plan:: ASSESSMENT AND PLAN - Breakthrough seizure-recent diagnosis of brain tumor with recent surgery. No recurrence since admission. -Increase Keppra to 1000 mg twice daily -Monitor for additional seizures Right frontal lobe IDH wild-type glioblastoma. She has cognitive impairment because of recent surgery. CT suggests ongoing edema with some frontal lobe mass-effect. Suspect behavior issues are related to recent surgery, tumor and edema. -Continue steroids but decrease to 3 times daily for 2 weeks then 2 times daily -Melatonin at bedtime -Physical therapy -Outpatient follow-up with neurosurgery/oncology in [place] Type 2 diabetes mellitus with hyperglycemia-blood sugar control improving but still suboptimally controlled despite adjustments in insulin -Increase long-acting insulin to 50 units daily -12 units of short acting insulin with each meal, titrate as needed -Medium-dose sliding scale insulin -Check sugars 4 times daily with meals and at bedtime Maintenance issues - -DVT prophylaxis-mechanical with small hemorrhage noted in recent surgical site -GI prophylaxis-twice daily PPI -Nutrition-consistent carbohydrates Disposition -I anticipate discharge to the fdc after the hospital stay. We are currently waiting for a bed to be available at [facility] in [place] near her family. There are no local fdc beds available. Primary care physician -Shweta Lemon M.D.
[2020-12-03] MEDS: ALPRAZolam 0.5 MG Tab PO PRN (20:43)
[2020-12-03] MEDS: Aspirin 325 MG Tab.EC PO SCH (21:15)
[2020-12-03] MEDS: Prazosin 1 MG Cap PO SCH (21:17)
[2020-12-03] MEDS: atorvaSTATin 20 MG Tab PO SCH (21:17)
[2020-12-03] MEDS: Melatonin 3 MG Tab PO SCH (21:17)
[2020-12-04] MEDS: Dexamethasone 2 MG Tab PO SCH ×3 (08:33→21:48)
[2020-12-04] MEDS: Cyanocobalamin (Vitamin B12) 1,000 MCG Tab PO SCH (08:33)
[2020-12-04] MEDS: FLUoxetine 20 MG Cap PO SCH (08:34)
[2020-12-04] MEDS: Pantoprazole 40 MG Tab.CR PO SCH ×2 (08:34→17:06)
[2020-12-04] MEDS: levETIRAcetam 250 MG Tab PO SCH ×2 (08:34→21:49)
[2020-12-04] MEDS: Levothyroxine 100 MCG, Levothyroxine 50 MCG, Levothyroxine 25 MCG PO SCH ×3 (08:35)
[2020-12-04] MEDS: Propranolol 60 MG Cap.ER PO SCH (08:36)
[2020-12-04] MEDS: Insulin Lispro 100 Unit/ML 3 ML KwikPen SUBCUT SCH ×7 (08:51→21:57)
[2020-12-04] MEDS: Insulin Glargine,Human Rec. Analog 100 Units/ML 3 ML Pen SUBCUT SCH (08:53)
[2020-12-04] MEDS: Acetaminophen/Caffeine 500-65 MG Tab PO PRN ×2 (08:59→19:54)
--- NOTE | 2020-12-04 12:01 | PCM.PN ---
- General Info Date of Service: 12/04/20 Subjective Update: There were no acute events overnight. Patient reports that she is feeling well. She does remain pleasantly confused. Blood sugars had been improving and ended up on the low side of normal this afternoon. She continues to report intermittent headaches. Excedrin seems to help with the headaches. No nausea or abdominal pain. No penitentiary bed available until Monday. Functional Status: Reports: Pain Controlled, Tolerating Diet - Review of Systems Gastrointestinal: Denies: Abdominal Pain Neurological: Reports: Confusion. Denies: Seizure - Patient Data Vitals - Most Recent: Last Vital Signs Temp 36.2 C 12/04/20 10:21 Pulse 72 12/04/20 10:21 Resp 18 12/04/20 10:21 BP 112/47 L 12/04/20 10:21 Pulse Ox 99 12/04/20 10:21 Weight - Most Recent: 70.216 kg I&O - Last 24 Hours: Intake & Output 12/03/20 12/04/20 12/04/20 22:59 06:59 14:59 Intake Total 240 Balance 240 Lab Results Last 24 Hours: Laboratory Results - last 24 hr 12/03/20 12/03/20 12/04/20 Range/Units 16:41 21:06 07:27 POC Glucose 234 H 204 H 155 H (74-106) mg/dL 12/04/20 Range/Units 11:45 POC Glucose 77 (74-106) mg/dL Med Orders - Current: Current Medications Acetaminophen (Acetaminophen 325 Mg Tab) 650 mg PO Q4H PRN PRN Reason: Pain (Mild 1-3)/fever Last Admin: 12/03/20 01:31 Dose: 650 mg Documented by: Acetaminophen/Caffeine (Acetaminophen/Caffeine 500-65 Mg Tab) 1 tab PO Q6H PRN PRN Reason: Headache Last Admin: 12/04/20 08:59 Dose: 1 tab Documented by: Albuterol (Albuterol 0.083% 2.5 Mg/3 Ml Neb Soln) 2.5 mg NEB Q4H PRN PRN Reason: Shortness Of Breath/wheezing Alogliptin Benzoate (Alogliptin 12.5 Mg Tab) 25 mg PO DAILY [facility] Last Admin: 12/04/20 08:33 Dose: 25 mg Documented by: Alprazolam (Alprazolam 0.5 Mg Tab) 1 mg PO BID PRN PRN Reason: Anxiety Last Admin: 12/03/20 20:43 Dose: 1 mg Documented by: Aspirin (Aspirin 325 Mg Tab.Ec) 325 mg PO BEDTIME [facility] Last Admin: 12/03/20 21:15 Dose: 325 mg Documented by: Atorvastatin Calcium (Atorvastatin 20 Mg Tab) 40 mg PO BEDTIME [facility] Last Admin: 12/03/20 21:17 Dose: 40 mg Documented by: Cyanocobalamin (Cyanocobalamin (Vitamin B12) 1,000 Mcg Tab) 1,000 mcg PO DAILY [facility] Last Admin: 12/04/20 08:33 Dose: 1,000 mcg Documented by: Dexamethasone (Dexamethasone 2 Mg Tab) 2 mg PO TID [facility] Last Admin: 12/04/20 08:33 Dose: 2 mg Documented by: Fluoxetine HCl (Fluoxetine 20 Mg Cap) 80 mg PO DAILY [facility] Last Admin: 12/04/20 08:34 Dose: 80 mg Documented by: Haloperidol (Haloperidol 5 Mg Tab) 5 mg PO Q4H PRN PRN Reason: Agitation Last Admin: 12/03/20 01:31 Dose: 5 mg Documented by: Insulin Glargine (Insulin Glargine,Human Rec. Analog 100 Units/Ml 3 Ml Pen) 50 units SUBCUT DAILY [facility] Last Admin: 12/04/20 08:53 Dose: 50 units Documented by: Insulin Human Lispro (Insulin Lispro 100 Unit/Ml 3 Ml Kwikpen) 0 unit SUBCUT QIDACANDBED [facility]; Protocol Last Admin: 12/04/20 08:52 Dose: 2 units Documented by: Insulin Human Lispro (Insulin Lispro 100 Unit/Ml 3 Ml Kwikpen) 15 unit SUBCUT TIDMEALS [facility] Last Admin: 12/04/20 08:51 Dose: 15 units Documented by: Levetiracetam (Levetiracetam 250 Mg Tab) 1,000 mg PO BID [facility] Last Admin: 12/04/20 08:34 Dose: 1,000 mg Documented by: Levothyroxine Sodium 100 mcg/Levothyroxine Sodium 50 mcg/Levothyroxine Sodium 25 mcg 175 mcg PO ACBREAKFAST [facility] Last Admin: 12/04/20 08:35 Dose: 175 mcg Documented by: Magnesium Hydroxide (Magnesium Hydroxide 400 Mg/5 Ml Susp 30 Ml Cup) 30 ml PO Q12H PRN PRN Reason: Constipation Melatonin (Melatonin 3 Mg Tab) 9 mg PO BEDTIME [facility] Last Admin: 12/03/20 21:17 Dose: 9 mg Documented by: Ondansetron HCl (Ondansetron 4 Mg/2 Ml Sdv) 4 mg IV Q6H PRN PRN Reason: Nausea/Vomiting Ondansetron HCl (Ondansetron 4 Mg Tab.Dis) 4 mg PO Q6H PRN PRN Reason: Nausea able to take PO Oxycodone HCl (Oxycodone 5 Mg Tab) 5 mg PO Q6H PRN PRN Reason: Headache Pantoprazole Sodium (Pantoprazole 40 Mg Tab.Cr) 40 mg PO BIDAC [facility] Last Admin: 12/04/20 08:34 Dose: 40 mg Documented by: Prazosin HCl (Prazosin 1 Mg Cap) 1 mg PO BEDTIME [facility] Last Admin: 12/03/20 21:17 Dose: 1 mg Documented by: Propranolol HCl (Propranolol 60 Mg Cap.Er) 60 mg PO DAILY [facility] Last Admin: 12/04/20 08:36 Dose: 60 mg Documented by: Senna/Docusate Sodium (Docusate Sodium/Sennosides 50-8.6 Mg Tab) 1 tab PO BID PRN PRN Reason: Constipation Discontinued Medications Acetaminophen/Caffeine (Acetaminophen/Caffeine 500-65 Mg Tab) 1 tab PO NOW ONE Stop: 12/02/20 05:14 Last Admin: 12/02/20 06:27 Dose: Not Given Documented by: Dexamethasone (Dexamethasone 2 Mg Tab) 2 mg PO QID [facility] Last Admin: 12/03/20 10:52 Dose: 2 mg Documented by: Dextrose/Water (50% Dextrose In Water 50 Ml Syringe) 50 ml IVPUSH ASDIRECTED PRN PRN Reason: Hypoglycemia Dextrose/Water (50% Dextrose In Water 50 Ml Syringe) 50 ml IVPUSH ASDIRECTED PRN PRN Reason: Hypoglycemia Glucagon (Glucagon,Human Recombinant 1 Mg Vial) 1 mg IM ASDIRECTED PRN PRN Reason: Hypoglycemia Glucagon (Glucagon,Human Recombinant 1 Mg Vial) 1 mg IM ASDIRECTED PRN PRN Reason: Hypoglycemia Lactated Ringer's (Ringers, Lactated) 1,000 mls @ 999 mls/hr IV BOLUS ONE Stop: 11/30/20 09:22 Last Admin: 11/30/20 08:55 Dose: 999 mls/hr Documented by: Levetiracetam 2,000 mg/ Sodium (Chloride) 270 mls @ 500 mls/hr IV ONETIME ONE Stop: 11/30/20 09:32 Last Admin: 11/30/20 08:55 Dose: 500 mls/hr Documented by: Sodium Chloride (Normal Saline) 1,000 mls @ 125 mls/hr IV ASDIRECTED [facility] Last Admin: 12/01/20 05:30 Dose: 125 mls/hr Documented by: Ibuprofen (Ibuprofen 600 Mg Tab) 600 mg PO ONETIME ONE Stop: 12/02/20 05:27 Last Admin: 12/02/20 05:48 Dose: 600 mg Documented by: Insulin Glargine (Insulin Glargine,Human Rec. Analog 100 Units/Ml 3 Ml Pen) 15 units SUBCUT DAILY [facility] Last Admin: 11/30/20 08:53 Dose: 15 unit Documented by: Insulin Glargine (Insulin Glargine,Human Rec. Analog 100 Units/Ml 3 Ml Pen) 30 units SUBCUT DAILY [facility] Last Admin: 12/01/20 08:17 Dose: 30 units Documented by: Insulin Glargine (Insulin Glargine,Human Rec. Analog 100 Units/Ml 3 Ml Pen) 40 units SUBCUT DAILY [facility] Last Admin: 12/02/20 08:29 Dose: 40 units Documented by: Insulin Human Lispro (Insulin Lispro 100 Unit/Ml 3 Ml Kwikpen) 0 unit SUBCUT QIDACANDBED [facility]; Protocol Last Admin: 12/01/20 11:40 Dose: 9 units Documented by: Insulin Human Lispro (Insulin Lispro 100 Unit/Ml 3 Ml Kwikpen) 5 unit SUBCUT TIDMEALS [facility] Last Admin: 11/30/20 17:47 Dose: Not Given Documented by: Insulin Human Lispro (Insulin Lispro 100 Unit/Ml 3 Ml Kwikpen) 8 unit SUBCUT TIDMEALS [facility] Last Admin: 12/02/20 10:33 Dose: Not Given Documented by: Insulin Human Lispro (Insulin Lispro 100 Unit/Ml 3 Ml Kwikpen) 12 unit SUBCUT TIDMEALS [facility] Last Admin: 12/03/20 08:33 Dose: Not Given Documented by: Insulin Human Regular (Insulin Regular, Human 100 Units/Ml 3 Ml Vial) 8 unit SUBCUT ONETIME ONE Stop: 11/30/20 08:20 Last Admin: 11/30/20 08:44 Dose: 8 unit Documented by: Insulin Human Regular (Insulin Regular, Human 100 Units/Ml 3 Ml Vial) 15 unit SUBCUT ONETIME ONE Stop: 11/30/20 11:05 Last Admin: 11/30/20 11:22 Dose: 15 units Documented by: Lorazepam (Lorazepam 2 Mg/Ml Sdv) 1 mg IVPUSH ONETIME ONE Stop: 12/01/20 00:31 Last Admin: 12/01/20 00:48 Dose: 1 mg Documented by: Non-Formulary Medication (Acetaminophen/Butalbital/Caff [Fioricet 325-50-40 Mg]) 1 tab PO BID PRN PRN Reason: Headache - Exam Quality Assessment: No: Supplemental Oxygen General: Alert, Cooperative, No Acute Distress. No: Oriented Lungs: Normal Respiratory Effort GI/Abdominal Exam: Soft, No Distention Extremities: No Pedal Edema Skin: Warm, Dry Psy/Mental Status: Alert, Normal Affect - Patient Data Lab Results Last 24 hrs: Laboratory Results - last 24 hr 12/03/20 12/03/20 12/04/20 Range/Units 16:41 21:06 07:27 POC Glucose 234 H 204 H 155 H (74-106) mg/dL 12/04/20 Range/Units 11:45 POC Glucose 77 (74-106) mg/dL Result Diagrams: 12/01/20 04:15 12/02/20 05:38 Sepsis Event Note - Evaluation Sepsis Screening Result: No Definite Risk - Focused Exam Vital Signs: Vital Signs Temp Pulse Resp BP Pulse Ox 12/04/20 10:21 36.2 C 72 18 112/47 L 99 12/04/20 07:50 36.9 C 66 18 125/64 97 - Problem List & Annotations (1) Breakthrough seizure SNOMED Code(s): 181303820 Code(s): G40.919 - EPILEPSY, UNSP, INTRACTABLE, WITHOUT STATUS EPILEPTICUS Status: Acute Current Visit: Yes (2) Right frontal lobe mass SNOMED Code(s): 975584141 Code(s): G93.89 - OTHER SPECIFIED DISORDERS OF BRAIN Status: Acute Current Visit: Yes (3) Type 2 diabetes mellitus with hyperglycemia, with long-term current use of insulin SNOMED Code(s): 35027627, 438887361, 801731231 Code(s): E11.65 - TYPE 2 DIABETES MELLITUS WITH HYPERGLYCEMIA; Z79.4 - [facility] (CURRENT) USE OF INSULIN Status: Acute Current Visit: Yes (4) Cognitive impairment SNOMED Code(s): 623905906 Code(s): R41.89 - OTH SYMPTOMS AND SIGNS W COGNITIVE FUNCTIONS AND AWARENESS Status: Acute Current Visit: Yes - Problem List Review Problem List Initiated/Reviewed/Updated: Yes - My Orders Last 24 Hours: My Active Orders 12/03/20 11:22 Acetaminophen/Caffeine [Excedrin Tension Headache] 1 tab PO Q6H PRN 12/03/20 11:23 oxyCODONE 5 mg PO Q6H PRN 12/03/20 21:00 dexAMETHasone 2 mg PO TID 12/04/20 16:30 GLUCOSE POC LAB TO COLLECT JPM [POC] QIDACANDBED 12/04/20 21:00 GLUCOSE POC LAB TO COLLECT JPM [POC] QIDACANDBED 12/05/20 07:30 GLUCOSE POC LAB TO COLLECT JPM [POC] QIDACANDBED 12/05/20 11:30 GLUCOSE POC LAB TO COLLECT JPM [POC] QIDACANDBED 12/05/20 16:30 GLUCOSE POC LAB TO COLLECT JPM [POC] QIDACANDBED 12/05/20 21:00 GLUCOSE POC LAB TO COLLECT JPM [POC] QIDACANDBED 12/06/20 07:30 GLUCOSE POC LAB TO COLLECT JPM [POC] QIDACANDBED 12/06/20 11:30 GLUCOSE POC LAB TO COLLECT JPM [POC] QIDACANDBED 12/06/20 16:30 GLUCOSE POC LAB TO COLLECT JPM [POC] QIDACANDBED 12/06/20 21:00 GLUCOSE POC LAB TO COLLECT JPM [POC] QIDACANDBED 12/07/20 07:30 GLUCOSE POC LAB TO COLLECT JPM [POC] QIDACANDBED 12/07/20 11:30 GLUCOSE POC LAB TO COLLECT JPM [POC] QIDACANDBED 12/07/20 16:30 GLUCOSE POC LAB TO COLLECT JPM [POC] QIDACANDBED 12/07/20 21:00 GLUCOSE POC LAB TO COLLECT JPM [POC] QIDACANDBED 12/08/20 07:30 GLUCOSE POC LAB TO COLLECT JPM [POC] QIDACANDBED - Plan Plan:: ASSESSMENT AND PLAN - Breakthrough seizure-recent diagnosis of brain tumor with recent surgery. No recurrence since admission. -Continue Keppra at 1000 mg twice daily -Monitor for additional seizures Right frontal lobe IDH wild-type glioblastoma. She has cognitive impairment because of recent surgery. CT suggests ongoing edema with some frontal lobe mass-effect. Suspect behavior issues are related to recent surgery, tumor and edema. -Continue steroids but decrease to 3 times daily for 2 weeks then 2 times daily -Melatonin at bedtime -Physical therapy -Outpatient follow-up with neurosurgery/oncology in [place] Type 2 diabetes mellitus with hyperglycemia-blood sugar control improving and borderline hypoglycemic this afternoon. -Increase long-acting insulin to 50 units daily -Hold scheduled mealtime insulin at lunchtime, reassess this evening -Medium-dose sliding scale insulin -Check sugars 4 times daily with meals and at bedtime Maintenance issues - -DVT prophylaxis-mechanical with small hemorrhage noted in recent surgical site -GI prophylaxis-twice daily PPI -Nutrition-consistent carbohydrates Disposition -I anticipate discharge to the penitentiary after the hospital stay. We are currently waiting for a bed to be available at [facility] in [place] near her family. There are no local penitentiary beds available. Primary care physician -Shweta Lemon M.D.
[2020-12-04] MEDS: Acetaminophen 325 MG Tab PO PRN ×2 (14:10→22:22)
[2020-12-04] MEDS: Melatonin 3 MG Tab PO SCH (21:48)
[2020-12-04] MEDS: Aspirin 325 MG Tab.EC PO SCH (21:49)
[2020-12-04] MEDS: atorvaSTATin 20 MG Tab PO SCH (21:50)
[2020-12-04] MEDS: Prazosin 1 MG Cap PO SCH (21:52)
[2020-12-05] MEDS: Insulin Lispro 100 Unit/ML 3 ML KwikPen SUBCUT SCH ×4 (07:52→17:39)
[2020-12-05] MEDS: Levothyroxine 100 MCG, Levothyroxine 50 MCG, Levothyroxine 25 MCG PO SCH ×3 (07:54)
[2020-12-05] MEDS: Pantoprazole 40 MG Tab.CR PO SCH ×2 (07:54→16:17)
[2020-12-05] MEDS: FLUoxetine 20 MG Cap PO SCH (09:16)
[2020-12-05] MEDS: levETIRAcetam 250 MG Tab PO SCH ×2 (09:16→20:36)
[2020-12-05] MEDS: Cyanocobalamin (Vitamin B12) 1,000 MCG Tab PO SCH (09:16)
[2020-12-05] MEDS: Propranolol 60 MG Cap.ER PO SCH (09:17)
[2020-12-05] MEDS: Dexamethasone 2 MG Tab PO SCH ×3 (09:17→20:37)
[2020-12-05] MEDS: Insulin Glargine,Human Rec. Analog 100 Units/ML 3 ML Pen SUBCUT SCH (09:20)
--- NOTE | 2020-12-05 11:14 | PCM.PN ---
- General Info Date of Service: 12/05/20 Subjective Update: No acute events overnight. Patient has been ambulating in the halls with no major difficulties. She continues to be pleasantly confused. No significant behavior issues. Blood sugars have ranged from 72-404 in the past 24 hours. Patient reports improvement in her headache today. She is stable and ready for discharge when a assisted bed is available. Functional Status: Reports: Pain Controlled, Tolerating Diet - Review of Systems General: Denies: Fever - Patient Data Vitals - Most Recent: Last Vital Signs Temp 36.3 C 12/05/20 09:54 Pulse 79 12/05/20 09:54 Resp 18 12/05/20 09:54 BP 121/54 L 12/05/20 09:54 Pulse Ox 98 12/05/20 09:54 Weight - Most Recent: 70.216 kg Lab Results Last 24 Hours: Laboratory Results - last 24 hr 12/04/20 12/04/20 12/04/20 Range/Units 11:45 16:34 20:52 POC Glucose 77 287 H 404 H* (74-106) mg/dL 12/05/20 Range/Units 07:26 POC Glucose 261 H (74-106) mg/dL Med Orders - Current: Current Medications Acetaminophen (Acetaminophen 325 Mg Tab) 650 mg PO Q4H PRN PRN Reason: Pain (Mild 1-3)/fever Last Admin: 12/04/20 22:22 Dose: 650 mg Documented by: Acetaminophen/Caffeine (Acetaminophen/Caffeine 500-65 Mg Tab) 1 tab PO Q6H PRN PRN Reason: Headache Last Admin: 12/04/20 19:54 Dose: 1 tab Documented by: Albuterol (Albuterol 0.083% 2.5 Mg/3 Ml Neb Soln) 2.5 mg NEB Q4H PRN PRN Reason: Shortness Of Breath/wheezing Alogliptin Benzoate (Alogliptin 12.5 Mg Tab) 25 mg PO DAILY [facility] Last Admin: 12/05/20 09:16 Dose: 25 mg Documented by: Alprazolam (Alprazolam 0.5 Mg Tab) 1 mg PO BID PRN PRN Reason: Anxiety Last Admin: 12/03/20 20:43 Dose: 1 mg Documented by: Aspirin (Aspirin 325 Mg Tab.Ec) 325 mg PO BEDTIME [facility] Last Admin: 12/04/20 21:49 Dose: 325 mg Documented by: Atorvastatin Calcium (Atorvastatin 20 Mg Tab) 40 mg PO BEDTIME [facility] Last Admin: 12/04/20 21:50 Dose: 40 mg Documented by: Cyanocobalamin (Cyanocobalamin (Vitamin B12) 1,000 Mcg Tab) 1,000 mcg PO DAILY [facility] Last Admin: 12/05/20 09:16 Dose: 1,000 mcg Documented by: Dexamethasone (Dexamethasone 2 Mg Tab) 2 mg PO TID [facility] Last Admin: 12/05/20 09:17 Dose: 2 mg Documented by: Fluoxetine HCl (Fluoxetine 20 Mg Cap) 80 mg PO DAILY [facility] Last Admin: 12/05/20 09:16 Dose: 80 mg Documented by: Haloperidol (Haloperidol 5 Mg Tab) 5 mg PO Q4H PRN PRN Reason: Agitation Last Admin: 12/03/20 01:31 Dose: 5 mg Documented by: Insulin Glargine (Insulin Glargine,Human Rec. Analog 100 Units/Ml 3 Ml Pen) 50 units SUBCUT DAILY [facility] Last Admin: 12/05/20 09:20 Dose: 50 units Documented by: Insulin Human Lispro (Insulin Lispro 100 Unit/Ml 3 Ml Kwikpen) 15 unit SUBCUT TIDMEALS [facility] Last Admin: 12/05/20 07:52 Dose: 15 units Documented by: Levetiracetam (Levetiracetam 250 Mg Tab) 1,000 mg PO BID [facility] Last Admin: 12/05/20 09:16 Dose: 1,000 mg Documented by: Levothyroxine Sodium 100 mcg/Levothyroxine Sodium 50 mcg/Levothyroxine Sodium 25 mcg 175 mcg PO ACBREAKFAST [facility] Last Admin: 12/05/20 07:54 Dose: 175 mcg Documented by: Magnesium Hydroxide (Magnesium Hydroxide 400 Mg/5 Ml Susp 30 Ml Cup) 30 ml PO Q12H PRN PRN Reason: Constipation Melatonin (Melatonin 3 Mg Tab) 9 mg PO BEDTIME [facility] Last Admin: 12/04/20 21:48 Dose: 9 mg Documented by: Ondansetron HCl (Ondansetron 4 Mg/2 Ml Sdv) 4 mg IV Q6H PRN PRN Reason: Nausea/Vomiting Ondansetron HCl (Ondansetron 4 Mg Tab.Dis) 4 mg PO Q6H PRN PRN Reason: Nausea able to take PO Oxycodone HCl (Oxycodone 5 Mg Tab) 5 mg PO Q6H PRN PRN Reason: Headache Pantoprazole Sodium (Pantoprazole 40 Mg Tab.Cr) 40 mg PO BIDAC [facility] Last Admin: 12/05/20 07:54 Dose: 40 mg Documented by: Prazosin HCl (Prazosin 1 Mg Cap) 1 mg PO BEDTIME [facility] Last Admin: 12/04/20 21:52 Dose: 1 mg Documented by: Propranolol HCl (Propranolol 60 Mg Cap.Er) 60 mg PO DAILY [facility] Last Admin: 12/05/20 09:17 Dose: 60 mg Documented by: Senna/Docusate Sodium (Docusate Sodium/Sennosides 50-8.6 Mg Tab) 1 tab PO BID PRN PRN Reason: Constipation Discontinued Medications Acetaminophen/Caffeine (Acetaminophen/Caffeine 500-65 Mg Tab) 1 tab PO NOW ONE Stop: 12/02/20 05:14 Last Admin: 12/02/20 06:27 Dose: Not Given Documented by: Dexamethasone (Dexamethasone 2 Mg Tab) 2 mg PO QID [facility] Last Admin: 12/03/20 10:52 Dose: 2 mg Documented by: Dextrose/Water (50% Dextrose In Water 50 Ml Syringe) 50 ml IVPUSH ASDIRECTED PRN PRN Reason: Hypoglycemia Dextrose/Water (50% Dextrose In Water 50 Ml Syringe) 50 ml IVPUSH ASDIRECTED PRN PRN Reason: Hypoglycemia Glucagon (Glucagon,Human Recombinant 1 Mg Vial) 1 mg IM ASDIRECTED PRN PRN Reason: Hypoglycemia Glucagon (Glucagon,Human Recombinant 1 Mg Vial) 1 mg IM ASDIRECTED PRN PRN Reason: Hypoglycemia Lactated Ringer's (Ringers, Lactated) 1,000 mls @ 999 mls/hr IV BOLUS ONE Stop: 11/30/20 09:22 Last Admin: 11/30/20 08:55 Dose: 999 mls/hr Documented by: Levetiracetam 2,000 mg/ Sodium (Chloride) 270 mls @ 500 mls/hr IV ONETIME ONE Stop: 11/30/20 09:32 Last Admin: 11/30/20 08:55 Dose: 500 mls/hr Documented by: Sodium Chloride (Normal Saline) 1,000 mls @ 125 mls/hr IV ASDIRECTED [facility] Last Admin: 12/01/20 05:30 Dose: 125 mls/hr Documented by: Ibuprofen (Ibuprofen 600 Mg Tab) 600 mg PO ONETIME ONE Stop: 12/02/20 05:27 Last Admin: 12/02/20 05:48 Dose: 600 mg Documented by: Insulin Glargine (Insulin Glargine,Human Rec. Analog 100 Units/Ml 3 Ml Pen) 15 units SUBCUT DAILY [facility] Last Admin: 11/30/20 08:53 Dose: 15 unit Documented by: Insulin Glargine (Insulin Glargine,Human Rec. Analog 100 Units/Ml 3 Ml Pen) 30 units SUBCUT DAILY [facility] Last Admin: 12/01/20 08:17 Dose: 30 units Documented by: Insulin Glargine (Insulin Glargine,Human Rec. Analog 100 Units/Ml 3 Ml Pen) 40 units SUBCUT DAILY [facility] Last Admin: 12/02/20 08:29 Dose: 40 units Documented by: Insulin Human Lispro (Insulin Lispro 100 Unit/Ml 3 Ml Kwikpen) 0 unit SUBCUT QI DACANDBED [facility]; Protocol Last Admin: 12/01/20 11:40 Dose: 9 units Documented by: Insulin Human Lispro (Insulin Lispro 100 Unit/Ml 3 Ml Kwikpen) 5 unit SUBCUT TIDMEALS [facility] Last Admin: 11/30/20 17:47 Dose: Not Given Documented by: Insulin Human Lispro (Insulin Lispro 100 Unit/Ml 3 Ml Kwikpen) 8 unit SUBCUT TIDMEALS [facility] Last Admin: 12/02/20 10:33 Dose: Not Given Documented by: Insulin Human Lispro (Insulin Lispro 100 Unit/Ml 3 Ml Kwikpen) 0 unit SUBCUT QIDACANDBED [facility]; Protocol Last Admin: 12/05/20 07:53 Dose: 6 units Documented by: Insulin Human Lispro (Insulin Lispro 100 Unit/Ml 3 Ml Kwikpen) 12 unit SUBCUT TIDMEALS [facility] Last Admin: 12/03/20 08:33 Dose: Not Given Documented by: Insulin Human Regular (Insulin Regular, Human 100 Units/Ml 3 Ml Vial) 8 unit SUBCUT ONETIME ONE Stop: 11/30/20 08:20 Last Admin: 11/30/20 08:44 Dose: 8 unit Documented by: Insulin Human Regular (Insulin Regular, Human 100 Units/Ml 3 Ml Vial) 15 unit SUBCUT ONETIME ONE Stop: 11/30/20 11:05 Last Admin: 11/30/20 11:22 Dose: 15 units Documented by: Lorazepam (Lorazepam 2 Mg/Ml Sdv) 1 mg IVPUSH ONETIME ONE Stop: 12/01/20 00:31 Last Admin: 12/01/20 00:48 Dose: 1 mg Documented by: Non-Formulary Medication (Acetaminophen/Butalbital/Caff [Fioricet 325-50-40 Mg]) 1 tab PO BID PRN PRN Reason: Headache - Exam Quality Assessment: No: Supplemental Oxygen General: Alert, Cooperative, No Acute Distress. No: Oriented Lungs: Normal Respiratory Effort Cardiovascular: Regular Rate, Regular Rhythm GI/Abdominal Exam: Soft, No Distention Extremities: No Pedal Edema Psy/Mental Status: Alert, Normal Affect - Patient Data Lab Results Last 24 hrs: Laboratory Results - last 24 hr 12/04/20 12/04/20 12/04/20 Range/Units 11:45 16:34 20:52 POC Glucose 77 287 H 404 H* (74-106) mg/dL 12/05/20 Range/Units 07:26 POC Glucose 261 H (74-106) mg/dL Result Diagrams: 12/01/20 04:15 12/02/20 05:38 Sepsis Event Note - Evaluation Sepsis Screening Result: No Definite Risk - Focused Exam Vital Signs: Vital Signs Temp Pulse Resp BP Pulse Ox 12/05/20 09:54 36.3 C 79 18 121/54 L 98 12/05/20 07:00 35.8 C L 66 16 132/82 95 - Problem List & Annotations (1) Breakthrough seizure SNOMED Code(s): 314992256 Code(s): G40.919 - EPILEPSY, UNSP, INTRACTABLE, WITHOUT STATUS EPILEPTICUS Status: Acute Current Visit: Yes (2) Right frontal lobe mass SNOMED Code(s): 301292712 Code(s): G93.89 - OTHER SPECIFIED DISORDERS OF BRAIN Status: Acute Current Visit: Yes (3) Type 2 diabetes mellitus with hyperglycemia, with long-term current use of insulin SNOMED Code(s): 33380284, 264739395, 950668610 Code(s): E11.65 - TYPE 2 DIABETES MELLITUS WITH HYPERGLYCEMIA; Z79.4 - [facility] (CURRENT) USE OF INSULIN Status: Acute Current Visit: Yes (4) Cognitive impairment SNOMED Code(s): 236480907 Code(s): R41.89 - [facility] SYMPTOMS AND SIGNS W COGNITIVE FUNCTIONS AND AWARENESS Status: Acute Current Visit: Yes - Problem List Review Problem List Initiated/Reviewed/Updated: Yes - My Orders Last 24 Hours: My Active Orders 12/05/20 11:30 GLUCOSE POC LAB TO COLLECT JPM [POC] QIDACANDBED 12/05/20 16:30 GLUCOSE POC LAB TO COLLECT JPM [POC] QIDACANDBED 12/05/20 21:00 GLUCOSE POC LAB TO COLLECT JPM [POC] QIDACANDBED 12/06/20 07:30 GLUCOSE POC LAB TO COLLECT JPM [POC] QIDACANDBED 12/06/20 11:30 GLUCOSE POC LAB TO COLLECT JPM [POC] QIDACANDBED 12/06/20 16:30 GLUCOSE POC LAB TO COLLECT JPM [POC] QIDACANDBED 12/06/20 21:00 GLUCOSE POC LAB TO COLLECT JPM [POC] QIDACANDBED 12/07/20 07:30 GLUCOSE POC LAB TO COLLECT JPM [POC] QIDACANDBED 12/07/20 11:30 GLUCOSE POC LAB TO COLLECT JPM [POC] QIDACANDBED 12/07/20 16:30 GLUCOSE POC LAB TO COLLECT JPM [POC] QIDACANDBED 12/07/20 21:00 GLUCOSE POC LAB TO COLLECT JPM [POC] QIDACANDBED 12/08/20 07:30 GLUCOSE POC LAB TO COLLECT JPM [POC] QIDACANDBED - Plan Plan:: ASSESSMENT AND PLAN - Breakthrough seizure-recent diagnosis of brain tumor with recent surgery. No recurrence since admission. Tolerating increased dose. -Continue Keppra at 1000 mg twice daily -Monitor for additional seizures Right frontal lobe IDH wild-type glioblastoma. She has cognitive impairment because of recent surgery. CT suggests ongoing edema with some frontal lobe mass-effect. Suspect behavior issues are related to recent surgery, tumor and edema. -Continue steroids but decrease to 3 times daily for 2 weeks then 2 times daily -Melatonin at bedtime -Physical therapy -Outpatient follow-up with neurosurgery/oncology Type 2 diabetes mellitus with hyperglycemia-blood sugar control slightly suboptimal yet. -Increase long-acting insulin to 50 units daily -Continue mealtime insulin -Hold medium-dose sliding scale insulin today -Check sugars 4 times daily with meals and at bedtime Maintenance issues - -DVT prophylaxis-mechanical with small hemorrhage noted in recent surgical site -GI prophylaxis-twice daily PPI -Nutrition-consistent carbohydrates Disposition -I anticipate discharge to the assisted after the hospital stay. We are currently waiting for a bed to be available at [facility] in [place] near her family. There are no local assisted beds available. Planning discharge on Monday. Primary care physician -Shweta Lemon M.D.
[2020-12-05] MEDS: Aspirin 325 MG Tab.EC PO SCH (20:36)
[2020-12-05] MEDS: Prazosin 1 MG Cap PO SCH (20:37)
[2020-12-05] MEDS: atorvaSTATin 20 MG Tab PO SCH (20:38)
[2020-12-05] MEDS: Melatonin 3 MG Tab PO SCH (22:01)
[2020-12-06] MEDS: Levothyroxine 100 MCG, Levothyroxine 50 MCG, Levothyroxine 25 MCG PO SCH ×3 (07:50)
[2020-12-06] MEDS: Pantoprazole 40 MG Tab.CR PO SCH ×3 (07:50→15:48)
[2020-12-06] MEDS: Insulin Lispro 100 Unit/ML 3 ML KwikPen SUBCUT SCH ×3 (08:09→16:57)
[2020-12-06] MEDS: Propranolol 60 MG Cap.ER PO SCH (09:46)
[2020-12-06] MEDS: levETIRAcetam 250 MG Tab PO SCH ×2 (09:47→21:00)
[2020-12-06] MEDS: FLUoxetine 20 MG Cap PO SCH (09:47)
[2020-12-06] MEDS: Cyanocobalamin (Vitamin B12) 1,000 MCG Tab PO SCH (09:47)
[2020-12-06] MEDS: Dexamethasone 2 MG Tab PO SCH ×3 (09:48→21:00)
[2020-12-06] MEDS: Insulin Glargine,Human Rec. Analog 100 Units/ML 3 ML Pen SUBCUT SCH (09:49)
--- NOTE | 2020-12-06 12:30 | PCM.DCSUM1 ---
Discharge Summary - Hospital Course Brief History: 60-year-old female with history of insulin-dependent diabetes mellitus and recent diagnosis and resection of a glioblastoma multiforme of the right frontal lobe who presented with a breakthrough seizure, confusion and hyperglycemia. She was admitted for management of breakthrough seizures as well as hyperglycemia and altered mental status. Diagnosis: Stroke: No - Discharge Data Discharge Date: 12/07/20 Discharge Disposition: DC/Tfer to [facility] Condition: Fair - Referral to Home Health Primary Care Physician: PCP None - Discharge Diagnosis/Problem(s) (1) Breakthrough seizure SNOMED Code(s): 052600162 ICD Code: G40.919 - EPILEPSY, UNSP, INTRACTABLE, WITHOUT STATUS EPILEPTICUS Status: Acute Current Visit: Yes (2) Glioblastoma multiforme of frontal lobe SNOMED Code(s): 53802744 ICD Code: C71.1 - MALIGNANT NEOPLASM OF FRONTAL LOBE Status: Acute Current Visit: Yes (3) Type 2 diabetes mellitus with hyperglycemia, with long-term current use of insulin SNOMED Code(s): 13182332, 250537557, 842106735 ICD Code: E11.65 - TYPE 2 DIABETES MELLITUS WITH HYPERGLYCEMIA; Z79.4 - HALFWAY (CURRENT) USE OF INSULIN Status: Acute Current Visit: Yes (4) Cognitive impairment SNOMED Code(s): 179185657 ICD Code: R41.89 - OTH SYMPTOMS AND SIGNS W COGNITIVE FUNCTIONS AND AWARENESS Status: Chronic Current Visit: Yes - Patient Summary/Data Consults: Consultations 12/01/20 07:00 PT Evaluation and Treatment [CONS] Routine Please Evaluate and Treat. PT Reason for Consult: Strengthening This query below is only for informational purposes and is not editable. Hospital Course: Kandis presented to the emergency room by ambulance after a breakthrough seizure at home. Work-up in the emergency room revealed evidence for hyperglycemia but otherwise labs were okay. A head CT was obtained with her recent craniotomy and this did show that she was status post surgical resection of a glioblastoma with mild residual hemorrhage inside the surgical bed but overall improvement with less edema though a fair amount of edema persisted in the right frontal lobe. She received IV Keppra in the emergency room and was admitted for the further management of breakthrough seizure as well as hyperglycemia. We did increase her Keppra to 1000 mg twice daily and there were no recurrent seizure issues during the hospital stay. We spent several days titrating her insulin regimen and at the time of discharge have achieved pretty good control with combination of 50 units of long-acting combined with 15 units 3 times a day of short acting as well as a low-dose sliding scale. Some slight further adjustments may be required but overall control is good. Patient does display some cognitive deficits probably related to her recent surgery and the chan rrounding edema. She is not safe to manage her medical problems at home and her significant other is not able to provide adequate care despite his best efforts. The plan is for her to go to a nursing home facility for subacute rehab. She is interested in establishing care with oncology to discuss potential treatment for her glioblastoma. She would like to be in the [place] area which is closer to her family. She is stable and safe for discharge at this time. She will be receiving physical and occupational therapy. - Patient Instructions Diet: Diabetic Diet (1800 leslie ADA diet ) Activity: As Tolerated Driving: Do Not Drive Showering/Bathing: May Shower Notify Provider of: Fever, Increased Pain Other/Special Instructions: 1. You were in the hospital for management of a breakthrough seizure as well as hyperglycemia. Your condition has been improving with treatment provided in the hospital. We did increase your Keppra to 1000 mg twice daily. We did make multiple changes to your insulin regimen including increasing your long-acting insulin to 50 units daily as well as your mealtime insulin to 15 units 3 times a day as well as a sliding scale. 2. Referral to physical and occupational therapy to help with strengthening as well as ADLs after recent surgery to resect a glioblastoma. 3. Sliding scale insulin TIDAC - insulin lispro subcutaneous. --if blood sugar is <150 no insulin, if BS 150-199 give 1 unit, if BS 200-249 give 2 units, if blood sugar 250-299 give 3 units, if BS 300-349 give 4 units, if BS 350-399 give 5 units, if BS >400 call MD. 4. Code status - FULL CODE. 5. Lab - accuchecks QIDAC and bedtime. 6. Referral to Oncology with [facility] system Dx: Glioblastoma multiforme. Patient will be moving to a nursing home facility in [place] and would like to establish with the [facility] system - Discharge Plan *PRESCRIPTION DRUG MONITORING PROGRAM REVIEWED*: Not Applicable *COPY OF PRESCRIPTION DRUG MONITORING REPORT IN PATIENT JEANIE: Not Applicable Prescriptions/Med Rec: Acetaminophen 650 mg PO Q4H PRN #100 tablet PRN Reason: Pain 1-3/Fever Aspirin 325 mg PO BEDTIME #30 Ascorbic Acid [C-1000] 1,000 mg PO DAILY #30 tablet dexAMETHasone [Dexamethasone] 1 tab PO TID #90 Acetaminophen/Caffeine [Excedrin Tension Headache] 1 tab PO Q6H PRN #45 tablet PRN Reason: Headache FLUoxetine HCl [Fluoxetine HCl] 80 mg PO DAILY #30 Garlic 100 mg PO DAILY #30 Insulin Lispro [Insulin Lispro Kwikpen U-100] 15 unit SQ TIDAC #5 insuln.pen Insulin Lispro [Insulin Lispro Kwikpen U-100] 1 unit SQ ASDIRECTED #5 insuln.pen SitaGLIPtin [Januvia] 100 mg PO DAILY #30 levETIRAcetam [Keppra] 1,000 mg PO BID #60 tablet Insulin Glarg,Human.Rec.Analog [Lantus Solostar] 50 units SUBCUT DAILY #5 pen Levothyroxine 175 mcg PO ACBREAKFAST #30 atorvaSTATin Calcium [Lipitor] 1 tab PO BEDTIME #30 Prazosin [Minpress] 1 mg PO BEDTIME #30 cap Multivitamin [Multi-Vitamin Daily] 1 tab PO DAILY #30 Omeprazole 40 mg PO BID #60 oxyCODONE 5 mg PO Q6H PRN #45 tablet PRN Reason: Pain Albuterol Sulfate [Proair Hfa] 2 puff INH Q4H PRN #1 PRN Reason: Shortness Of Breath Propranolol HCl [Propranolol] 60 mg PO DAILY #30 Cyanocobalamin (Vitamin B-12) [Vitamin B-12] 1,000 mcg PO DAILY #30 ALPRAZolam [Xanax] 1 mg PO BID PRN #60 PRN Reason: Anxiety Ondansetron [Zofran ODT] 4 mg PO Q8H PRN #40 PRN Reason: Nausea Home Medications: Home Meds Calcium Carbonate/Vitamin D3 [Calcium 600 + Vit D 200] 1 tab PO BID 05/05/16 [History] ALPRAZolam [Xanax] 1 mg PO BID PRN #60 12/06/20 [Rx] Acetaminophen 650 mg PO Q4H PRN #100 tablet 12/06/20 [Rx] Acetaminophen/Caffeine [Excedrin Tension Headache] 1 tab PO Q6H PRN #45 tablet 12/06/20 [Rx] Albuterol Sulfate [Proair Hfa] 2 puff INH Q4H PRN #1 12/06/20 [Rx] Ascorbic Acid [C-1000] 1,000 mg PO DAILY #30 tablet 12/06/20 [Rx] Aspirin 325 mg PO BEDTIME #30 12/06/20 [Rx] Cyanocobalamin (Vitamin B-12) [Vitamin B-12] 1,000 mcg PO DAILY #30 12/06/20 [Rx] FLUoxetine HCl [Fluoxetine HCl] 80 mg PO DAILY #30 12/06/20 [Rx] Garlic 100 mg PO DAILY #30 12/06/20 [Rx] Insulin Glarg,Human.Rec.Analog [Lantus Solostar] 50 units SUBCUT DAILY #5 pen 12/06/20 [Rx] Insulin Lispro [Insulin Lispro Kwikpen U-100] 1 unit SQ ASDIRECTED #5 insuln.pen 12/06/20 [Rx] Insulin Lispro [Insulin Lispro Kwikpen U-100] 15 unit SQ TIDAC #5 insuln.pen 12/06/20 [Rx] Levothyroxine 175 mcg PO ACBREAKFAST #30 12/06/20 [Rx] Multivitamin [Multi-Vitamin Daily] 1 tab PO DAILY #30 12/06/20 [Rx] Omeprazole 40 mg PO BID #60 12/06/20 [Rx] Ondansetron [Zofran ODT] 4 mg PO Q8H PRN #40 12/06/20 [Rx] Prazosin [Minpress] 1 mg PO BEDTIME #30 cap 12/06/20 [Rx] Propranolol HCl [Propranolol] 60 mg PO DAILY #30 12/06/20 [Rx] SitaGLIPtin [Januvia] 100 mg PO DAILY #30 12/06/20 [Rx] atorvaSTATin Calcium [Lipitor] 1 tab PO BEDTIME #30 12/06/20 [Rx] dexAMETHasone [Dexamethasone] 1 tab PO TID #90 12/06/20 [Rx] levETIRAcetam [Keppra] 1,000 mg PO BID #60 tablet 12/06/20 [Rx] oxyCODONE 5 mg PO Q6H PRN #45 tablet 12/06/20 [Rx] Oxygen Therapy Mode: Room Air Referrals: PCP,None [Primary Care Provider] - (establish care with [facility] ) - Discharge Summary/Plan Comment DC Time >30 min.: Yes (45-new [place] dischage ) - Patient Data Vitals - Most Recent: Last Vital Signs Temp 36.6 C 12/06/20 10:49 Pulse 67 12/06/20 10:49 Resp 18 12/06/20 10:49 BP 137/57 L 12/06/20 10:49 Pulse Ox 98 12/06/20 10:49 Weight - Most Recent: 70.216 kg I&O - Last 24 hours: Intake & Output 12/05/20 12/06/20 12/06/20 22:59 06:59 14:59 Intake Total 360 360 Balance 360 360 Lab Results - Last 24 hrs: Laboratory Results - last 24 hr 12/05/20 12/05/20 12/06/20 Range/Units 16:28 20:58 07:26 POC Glucose 281 H 221 H 221 H (74-106) mg/dL 12/06/20 Range/Units 11:27 POC Glucose 113 H (74-106) mg/dL Med Orders - Current: Current Medications Acetaminophen (Acetaminophen 325 Mg Tab) 650 mg PO Q4H PRN PRN Reason: Pain (Mild 1-3)/fever Last Admin: 12/04/20 22:22 Dose: 650 mg Documented by: Acetaminophen/Caffeine (Acetaminophen/Caffeine 500-65 Mg Tab) 1 tab PO Q6H PRN PRN Reason: Headache Last Admin: 12/04/20 19:54 Dose: 1 tab Documented by: Albuterol (Albuterol 0.083% 2.5 Mg/3 Ml Neb Soln) 2.5 mg NEB Q4H PRN PRN Reason: Shortness Of Breath/wheezing Alogliptin Benzoate (Alogliptin 12.5 Mg Tab) 25 mg PO DAILY [facility] Last Admin: 12/06/20 09:47 Dose: 25 mg Documented by: Alprazolam (Alprazolam 0.5 Mg Tab) 1 mg PO BID PRN PRN Reason: Anxiety Last Admin: 12/03/20 20:43 Dose: 1 mg Documented by: Aspirin (Aspirin 325 Mg Tab.Ec) 325 mg PO BEDTIME [facility] Last Admin: 12/05/20 20:36 Dose: 325 mg Documented by: Atorvastatin Calcium (Atorvastatin 20 Mg Tab) 40 mg PO BEDTIME [facility] Last Admin: 12/05/20 20:38 Dose: 40 mg Documented by: Cyanocobalamin (Cyanocobalamin (Vitamin B12) 1,000 Mcg Tab) 1,000 mcg PO DAILY [facility] Last Admin: 12/06/20 09:47 Dose: 1,000 mcg Documented by: Dexamethasone (Dexamethasone 2 Mg Tab) 2 mg PO TID [facility] Last Admin: 12/06/20 09:48 Dose: 2 mg Documented by: Fluoxetine HCl (Fluoxetine 20 Mg Cap) 80 mg PO DAILY [facility] Last Admin: 12/06/20 09:47 Dose: 80 mg Documented by: Haloperidol (Haloperidol 5 Mg Tab) 5 mg PO Q4H PRN PRN Reason: Agitation Last Admin: 12/03/20 01:31 Dose: 5 mg Documented by: Insulin Glargine (Insulin Glargine,Human Rec. Analog 100 Units/Ml 3 Ml Pen) 55 units SUBCUT DAILY [facility] Last Admin: 12/06/20 09:49 Dose: 55 unit Documented by: Insulin Human Lispro (Insulin Lispro 100 Unit/Ml 3 Ml Kwikpen) 15 unit SUBCUT TIDMEALS [facility] Last Admin: 12/06/20 08:09 Dose: 15 units Documented by: Levetiracetam (Levetiracetam 250 Mg Tab) 1,000 mg PO BID [facility] Last Admin: 12/06/20 09:47 Dose: 1,000 mg Documented by: Levothyroxine Sodium 100 mcg/Levothyroxine Sodium 50 mcg/Levothyroxine Sodium 25 mcg 175 mcg PO ACBREAKFAST [facility] Last Admin: 12/06/20 07:50 Dose: 175 mcg Documented by: Magnesium Hydroxide (Magnesium Hydroxide 400 Mg/5 Ml Susp 30 Ml Cup) 30 ml PO Q12H PRN PRN Reason: Constipation Melatonin (Melatonin 3 Mg Tab) 9 mg PO BEDTIME [facility] Last Admin: 12/05/20 22:01 Dose: 9 mg Documented by: Ondansetron HCl (Ondansetron 4 Mg/2 Ml Sdv) 4 mg IV Q6H PRN PRN Reason: Nausea/Vomiting Ondansetron HCl (Ondansetron 4 Mg Tab.Dis) 4 mg PO Q6H PRN PRN Reason: Nausea able to take PO Oxycodone HCl (Oxycodone 5 Mg Tab) 5 mg PO Q6H PRN PRN Reason: Headache Pantoprazole Sodium (Pantoprazole 40 Mg Tab.Cr) 40 mg PO BIDAC [facility] Last Admin: 12/06/20 07:50 Dose: 40 mg Documented by: Prazosin HCl (Prazosin 1 Mg Cap) 1 mg PO BEDTIME [facility] Last Admin: 12/05/20 20:37 Dose: 1 mg Documented by: Propranolol HCl (Propranolol 60 Mg Cap.Er) 60 mg PO DAILY [facility] Last Admin: 12/06/20 09:46 Dose: 60 mg Documented by: Senna/Docusate Sodium (Docusate Sodium/Sennosides 50-8.6 Mg Tab) 1 tab PO BID PRN PRN Reason: Constipation Discontinued Medications Acetaminophen/Caffeine (Acetaminophen/Caffeine 500-65 Mg Tab) 1 tab PO NOW ONE Stop: 12/02/20 05:14 Last Admin: 12/02/20 06:27 Dose: Not Given Documented by: Dexamethasone (Dexamethasone 2 Mg Tab) 2 mg PO QID [facility] Last Admin: 12/03/20 10:52 Dose: 2 mg Documented by: Dextrose/Water (50% Dextrose In Water 50 Ml Syringe) 50 ml IVPUSH ASDIRECTED PRN PRN Reason: Hypoglycemia Dextrose/Water (50% Dextrose In Water 50 Ml Syringe) 50 ml IVPUSH ASDIRECTED PRN PRN Reason: Hypoglycemia Glucagon (Glucagon,Human Recombinant 1 Mg Vial) 1 mg IM ASDIRECTED PRN PRN Reason: Hypoglycemia Glucagon (Glucagon,Human Recombinant 1 Mg Vial) 1 mg IM ASDIRECTED PRN PRN Reason: Hypoglycemia Lactated Ringer's (Ringers, Lactated) 1,000 mls @ 999 mls/hr IV BOLUS ONE Stop: 11/30/20 09:22 Last Admin: 11/30/20 08:55 Dose: 999 mls/hr Documented by: Levetiracetam 2,000 mg/ Sodium (Chloride) 270 mls @ 500 mls/hr IV ONETIME ONE Stop: 11/30/20 09:32 Last Admin: 11/30/20 08:55 Dose: 500 mls/hr Documented by: Sodium Chloride (Normal Saline) 1,000 mls @ 125 mls/hr IV ASDIRECTED [facility] Last Admin: 12/01/20 05:30 Dose: 125 mls/hr Documented by: Ibuprofen (Ibuprofen 600 Mg Tab) 600 mg PO ONETIME ONE Stop: 12/02/20 05:27 Last Admin: 12/02/20 05:48 Dose: 600 mg Documented by: Insulin Glargine (Insulin Glargine,Human Rec. Analog 100 Units/Ml 3 Ml Pen) 15 units SUBCUT DAILY [facility] Last Admin: 11/30/20 08:53 Dose: 15 unit Documented by: Insulin Glargine (Insulin Glargine,Human Rec. Analog 100 Units/Ml 3 Ml Pen) 30 units SUBCUT DAILY [facility] Last Admin: 12/01/20 08:17 Dose: 30 units Documented by: Insulin Glargine (Insulin Glargine,Human Rec. Analog 100 Units/Ml 3 Ml Pen) 40 units SUBCUT DAILY [facility] Last Admin: 12/02/20 08:29 Dose: 40 units Documented by: Insulin Glargine (Insulin Glargine,Human Rec. Analog 100 Units/Ml 3 Ml Pen) 50 units SUBCUT DAILY [facility] Last Admin: 12/05/20 09:20 Dose: 50 units Documented by: Insulin Human Lispro (Insulin Lispro 100 Unit/Ml 3 Ml Kwikpen) 0 unit SUBCUT QIDACANDBED [facility]; Protocol Last Admin: 12/01/20 11:40 Dose: 9 units Documented by: Insulin Human Lispro (Insulin Lispro 100 Unit/Ml 3 Ml Kwikpen) 5 unit SUBCUT TIDMEALS [facility] Last Admin: 11/30/20 17:47 Dose: Not Given Documented by: Insulin Human Lispro (Insulin Lispro 100 Unit/Ml 3 Ml Kwikpen) 8 unit SUBCUT TIDMEALS [facility] Last Admin: 12/02/20 10:33 Dose: Not Given Documented by: Insulin Human Lispro (Insulin Lispro 100 Unit/Ml 3 Ml Kwikpen) 0 unit SUBCUT QIDACANDBED [facility]; Protocol Last Admin: 12/05/20 07:53 Dose: 6 units Documented by: Insulin Human Lispro (Insulin Lispro 100 Unit/Ml 3 Ml Kwikpen) 12 unit SUBCUT TIDMEALS [facility] Last Admin: 12/03/20 08:33 Dose: Not Given Documented by: Insulin Human Regular (Insulin Regular, Human 100 Units/Ml 3 Ml Vial) 8 unit SUBCUT ONETIME ONE Stop: 11/30/20 08:20 Last Admin: 11/30/20 08:44 Dose: 8 unit Documented by: Insulin Human Regular (Insulin Regular, Human 100 Units/Ml 3 Ml Vial) 15 unit SUBCUT ONETIME ONE Stop: 11/30/20 11:05 Last Admin: 11/30/20 11:22 Dose: 15 units Documented by: Lorazepam (Lorazepam 2 Mg/Ml Sdv) 1 mg IVPUSH ONETIME ONE Stop: 12/01/20 00:31 Last Admin: 12/01/20 00:48 Dose: 1 mg Documented by: Non-Formulary Medication (Acetaminophen/Butalbital/Caff [Fioricet 325-50-40 Mg]) 1 tab PO BID PRN PRN Reason: Headache *Q Meaningful Use (DIS) - VTE *Q VTE Pharmacological Contraindications *Q: Risk of Bleeding (Small hemorrhage in right frontal lobe surgical site)
--- NOTE | 2020-12-06 13:26 | PCM.PN ---
- General Info Date of Service: 12/06/20 Subjective Update: There were no acute events overnight. Blood sugars moderately elevated but acceptable. No fevers. No behavior issues. Strength slowly getting better. Appetite good. - Patient Data Vitals - Most Recent: Last Vital Signs Temp 36.6 C 12/06/20 10:49 Pulse 67 12/06/20 10:49 Resp 18 12/06/20 10:49 BP 137/57 L 12/06/20 10:49 Pulse Ox 98 12/06/20 10:49 Weight - Most Recent: 70.216 kg I&O - Last 24 Hours: Intake & Output 12/05/20 12/06/20 12/06/20 22:59 06:59 14:59 Intake Total 360 360 Balance 360 360 Lab Results Last 24 Hours: Laboratory Results - last 24 hr 12/05/20 12/05/20 12/06/20 Range/Units 16:28 20:58 07:26 POC Glucose 281 H 221 H 221 H (74-106) mg/dL 12/06/20 Range/Units 11:27 POC Glucose 113 H (74-106) mg/dL Med Orders - Current: Current Medications Acetaminophen (Acetaminophen 325 Mg Tab) 650 mg PO Q4H PRN PRN Reason: Pain (Mild 1-3)/fever Last Admin: 12/04/20 22:22 Dose: 650 mg Documented by: Acetaminophen/Caffeine (Acetaminophen/Caffeine 500-65 Mg Tab) 1 tab PO Q6H PRN PRN Reason: Headache Last Admin: 12/04/20 19:54 Dose: 1 tab Documented by: Albuterol (Albuterol 0.083% 2.5 Mg/3 Ml Neb Soln) 2.5 mg NEB Q4H PRN PRN Reason: Shortness Of Breath/wheezing Alogliptin Benzoate (Alogliptin 12.5 Mg Tab) 25 mg PO DAILY [facility] Last Admin: 12/06/20 09:47 Dose: 25 mg Documented by: Alprazolam (Alprazolam 0.5 Mg Tab) 1 mg PO BID PRN PRN Reason: Anxiety Last Admin: 12/03/20 20:43 Dose: 1 mg Documented by: Aspirin (Aspirin 325 Mg Tab.Ec) 325 mg PO BEDTIME [facility] Last Admin: 12/05/20 20:36 Dose: 325 mg Documented by: Atorvastatin Calcium (Atorvastatin 20 Mg Tab) 40 mg PO BEDTIME [facility] Last Admin: 12/05/20 20:38 Dose: 40 mg Documented by: Cyanocobalamin (Cyanocobalamin (Vitamin B12) 1,000 Mcg Tab) 1,000 mcg PO DAILY [facility] Last Admin: 12/06/20 09:47 Dose: 1,000 mcg Documented by: Dexamethasone (Dexamethasone 2 Mg Tab) 2 mg PO TID [facility] Last Admin: 12/06/20 09:48 Dose: 2 mg Documented by: Fluoxetine HCl (Fluoxetine 20 Mg Cap) 80 mg PO DAILY [facility] Last Admin: 12/06/20 09:47 Dose: 80 mg Documented by: Haloperidol (Haloperidol 5 Mg Tab) 5 mg PO Q4H PRN PRN Reason: Agitation Last Admin: 12/03/20 01:31 Dose: 5 mg Documented by: Insulin Glargine (Insulin Glargine,Human Rec. Analog 100 Units/Ml 3 Ml Pen) 55 units SUBCUT DAILY [facility] Last Admin: 12/06/20 09:49 Dose: 55 unit Documented by: Insulin Human Lispro (Insulin Lispro 100 Unit/Ml 3 Ml Kwikpen) 15 unit SUBCUT TIDMEALS [facility] Last Admin: 12/06/20 13:00 Dose: 15 units Documented by: Levetiracetam (Levetiracetam 250 Mg Tab) 1,000 mg PO BID [facility] Last Admin: 12/06/20 09:47 Dose: 1,000 mg Documented by: Levothyroxine Sodium 100 mcg/Levothyroxine Sodium 50 mcg/Levothyroxine Sodium 25 mcg 175 mcg PO ACBREAKFAST [facility] Last Admin: 12/06/20 07:50 Dose: 175 mcg Documented by: Magnesium Hydroxide (Magnesium Hydroxide 400 Mg/5 Ml Susp 30 Ml Cup) 30 ml PO Q12H PRN PRN Reason: Constipation Melatonin (Melatonin 3 Mg Tab) 9 mg PO BEDTIME [facility] Last Admin: 12/05/20 22:01 Dose: 9 mg Documented by: Ondansetron HCl (Ondansetron 4 Mg/2 Ml Sdv) 4 mg IV Q6H PRN PRN Reason: Nausea/Vomiting Ondansetron HCl (Ondansetron 4 Mg Tab.Dis) 4 mg PO Q6H PRN PRN Reason: Nausea able to take PO Oxycodone HCl (Oxycodone 5 Mg Tab) 5 mg PO Q6H PRN PRN Reason: Headache Pantoprazole Sodium (Pantoprazole 40 Mg Tab.Cr) 40 mg PO BIDAC [facility] Last Admin: 12/06/20 07:50 Dose: 40 mg Documented by: Prazosin HCl (Prazosin 1 Mg Cap) 1 mg PO BEDTIME [facility] Last Admin: 12/05/20 20:37 Dose: 1 mg Documented by: Propranolol HCl (Propranolol 60 Mg Cap.Er) 60 mg PO DAILY [facility] Last Admin: 12/06/20 09:46 Dose: 60 mg Documented by: Senna/Docusate Sodium (Docusate Sodium/Sennosides 50-8.6 Mg Tab) 1 tab PO BID PRN PRN Reason: Constipation Discontinued Medications Acetaminophen/Caffeine (Acetaminophen/Caffeine 500-65 Mg Tab) 1 tab PO NOW ONE Stop: 12/02/20 05:14 Last Admin: 12/02/20 06:27 Dose: Not Given Documented by: Dexamethasone (Dexamethasone 2 Mg Tab) 2 mg PO QID [facility] Last Admin: 12/03/20 10:52 Dose: 2 mg Documented by: Dextrose/Water (50% Dextrose In Water 50 Ml Syringe) 50 ml IVPUSH ASDIRECTED PRN PRN Reason: Hypoglycemia Dextrose/Water (50% Dextrose In Water 50 Ml Syringe) 50 ml IVPUSH ASDIRECTED PRN PRN Reason: Hypoglycemia Glucagon (Glucagon,Human Recombinant 1 Mg Vial) 1 mg IM ASDIRECTED PRN PRN Reason: Hypoglycemia Glucagon (Glucagon,Human Recombinant 1 Mg Vial) 1 mg IM ASDIRECTED PRN PRN Reason: Hypoglycemia Lactated Ringer's (Ringers, Lactated) 1,000 mls @ 999 mls/hr IV BOLUS ONE Stop: 11/30/20 09:22 Last Admin: 11/30/20 08:55 Dose: 999 mls/hr Documented by: Levetiracetam 2,000 mg/ Sodium (Chloride) 270 mls @ 500 mls/hr IV ONETIME ONE Stop: 11/30/20 09:32 Last Admin: 11/30/20 08:55 Dose: 500 mls/hr Documented by: Sodium Chloride (Normal Saline) 1,000 mls @ 125 mls/hr IV ASDIRECTED [facility] Last Admin: 12/01/20 05:30 Dose: 125 mls/hr Documented by: Ibuprofen (Ibuprofen 600 Mg Tab) 600 mg PO ONETIME ONE Stop: 12/02/20 05:27 Last Admin: 12/02/20 05:48 Dose: 600 mg Documented by: Insulin Glargine (Insulin Glargine,Human Rec. Analog 100 Units/Ml 3 Ml Pen) 15 units SUBCUT DAILY [facility] Last Admin: 11/30/20 08:53 Dose: 15 unit Documented by: Insulin Glargine (Insulin Glargine,Human Rec. Analog 100 Units/Ml 3 Ml Pen) 30 units SUBCUT DAILY [facility] Last Admin: 12/01/20 08:17 Dose: 30 units Documented by: Insulin Glargine (Insulin Glargine,Human Rec. Analog 100 Units/Ml 3 Ml Pen) 40 units SUBCUT DAILY [facility] Last Admin: 12/02/20 08:29 Dose: 40 units Documented by: Insulin Glargine (Insulin Glargine,Human Rec. Analog 100 Units/Ml 3 Ml Pen) 50 units SUBCUT DAILY [facility] Last Admin: 12/05/20 09:20 Dose: 50 units Documented by: Insulin Human Lispro (Insulin Lispro 100 Unit/Ml 3 Ml Kwikpen) 0 unit SUBCUT QIDACANDBED [facility]; Protocol Last Admin: 12/01/20 11:40 Dose: 9 units Documented by: Insulin Human Lispro (Insulin Lispro 100 Unit/Ml 3 Ml Kwikpen) 5 unit SUBCUT TIDMEALS [facility] Last Admin: 11/30/20 17:47 Dose: Not Given Documented by: Insulin Human Lispro (Insulin Lispro 100 Unit/Ml 3 Ml Kwikpen) 8 unit SUBCUT TIDMEALS [facility] Last Admin: 12/02/20 10:33 Dose: Not Given Documented by: Insulin Human Lispro (Insulin Lispro 100 Unit/Ml 3 Ml Kwikpen) 0 unit SUBCUT QIDACANDBED [facility]; Protocol Last Admin: 12/05/20 07:53 Dose: 6 units Documented by: Insulin Human Lispro (Insulin Lispro 100 Unit/Ml 3 Ml Kwikpen) 12 unit SUBCUT TIDMEALS [facility] Last Admin: 12/03/20 08:33 Dose: Not Given Documented by: Insulin Human Regular (Insulin Regular, Human 100 Units/Ml 3 Ml Vial) 8 unit SUBCUT ONETIME ONE Stop: 11/30/20 08:20 Last Admin: 11/30/20 08:44 Dose: 8 unit Documented by: Insulin Human Regular (Insulin Regular, Human 100 Units/Ml 3 Ml Vial) 15 unit SUBCUT ONETIME ONE Stop: 11/30/20 11:05 Last Admin: 11/30/20 11:22 Dose: 15 units Documented by: Lorazepam (Lorazepam 2 Mg/Ml Sdv) 1 mg IVPUSH ONETIME ONE Stop: 12/01/20 00:31 Last Admin: 12/01/20 00:48 Dose: 1 mg Documented by: Non-Formulary Medication (Acetaminophen/Butalbital/Caff [Fioricet 325-50-40 Mg]) 1 tab PO BID PRN PRN Reason: Headache - Exam Quality Assessment: No: Supplemental Oxygen General: Alert, Cooperative, No Acute Distress. No: Oriented Lungs: Normal Respiratory Effort Cardiovascular: Regular Rate, Regular Rhythm GI/Abdominal Exam: Soft, No Distention Extremities: No Pedal Edema Psy/Mental Status: Alert, Normal Affect - Patient Data Lab Results Last 24 hrs: Laboratory Results - last 24 hr 12/05/20 12/05/20 12/06/20 Range/Units 16:28 20:58 07:26 POC Glucose 281 H 221 H 221 H (74-106) mg/dL 12/06/20 Range/Units 11:27 POC Glucose 113 H (74-106) mg/dL Result Diagrams: 12/01/20 04:15 12/02/20 05:38 Sepsis Event Note - Evaluation Sepsis Screening Result: No Definite Risk - Focused Exam Vital Signs: Vital Signs Temp Pulse Resp BP Pulse Ox 12/06/20 10:49 36.6 C 67 18 137/57 L 98 12/06/20 07:00 36.8 C 65 18 134/61 97 - Problem List & Annotations (1) Breakthrough seizure SNOMED Code(s): 760420113 Code(s): G40.919 - EPILEPSY, UNSP, INTRACTABLE, WITHOUT STATUS EPILEPTICUS Status: Acute Current Visit: Yes (2) Glioblastoma multiforme of frontal lobe SNOMED Code(s): 52385442 Code(s): C71.1 - MALIGNANT NEOPLASM OF FRONTAL LOBE Status: Acute Current Visit: Yes (3) Type 2 diabetes mellitus with hyperglycemia, with long-term current use of insulin SNOMED Code(s): 04350446, 747381723, 141064255 Code(s): E11.65 - TYPE 2 DIABETES MELLITUS WITH HYPERGLYCEMIA; Z79.4 - USP (CURRENT) USE OF INSULIN Status: Acute Current Visit: Yes (4) Cognitive impairment SNOMED Code(s): 221629363 Code(s): R41.89 - OTH SYMPTOMS AND SIGNS W COGNITIVE FUNCTIONS AND AWARENESS Status: Chronic Current Visit: Yes - Problem List Review Problem List Initiated/Reviewed/Updated: Yes - My Orders Last 24 Hours: My Active Orders 12/06/20 09:00 Insulin Glarg,Human.Rec.Analog [LantUS Solostar] 55 units SUBCUT DAILY 12/06/20 12:27 Ready for Discharge [RC] PER UNIT ROUTINE 12/06/20 16:30 GLUCOSE POC LAB TO COLLECT JPM [POC] QIDACANDBED 12/06/20 21:00 GLUCOSE POC LAB TO COLLECT JPM [POC] QIDACANDBED 12/07/20 07:30 GLUCOSE POC LAB TO COLLECT JPM [POC] QIDACANDBED 12/07/20 11:30 GLUCOSE POC LAB TO COLLECT JPM [POC] QIDACANDBED 12/07/20 16:30 GLUCOSE POC LAB TO COLLECT JPM [POC] QIDACANDBED 12/07/20 21:00 GLUCOSE POC LAB TO COLLECT JPM [POC] QIDACANDBED 12/08/20 07:30 GLUCOSE POC LAB TO COLLECT JPM [POC] QIDACANDBED - Plan Plan:: ASSESSMENT AND PLAN - Breakthrough seizure-recent diagnosis of brain tumor with recent surgery. No recurrence since admission. Tolerating increased dose. -Continue Keppra at 1000 mg twice daily -Monitor for additional seizures Right frontal lobe IDH wild-type glioblastoma. She has cognitive impairment because of recent surgery. CT suggests ongoing edema with some frontal lobe mass-effect. Suspect behavior issues are related to recent surgery, tumor and edema. -Continue steroids but decrease to 3 times daily for 2 weeks then 2 times daily -Melatonin at bedtime -Physical therapy -Outpatient follow-up with neurosurgery/oncology Type 2 diabetes mellitus with hyperglycemia-blood sugar control improving. -long-acting insulin to 50 units daily -Continue mealtime insulin -Hold medium-dose sliding scale insulin today -Check sugars 4 times daily with meals and at bedtime Maintenance issues - -DVT prophylaxis-mechanical with small hemorrhage noted in recent surgical site -GI prophylaxis-twice daily PPI -Nutrition-consistent carbohydrates Disposition -I anticipate discharge to the [facility] after the hospital stay. We are currently waiting for a bed to be available at [facility] in [place] near her family. There are no local [facility] beds available. Planning discharge on Monday. Primary care physician -Shweta Lemon M.D.
[2020-12-06] MEDS: Acetaminophen/Caffeine 500-65 MG Tab PO PRN (15:05)
[2020-12-06] MEDS: Prazosin 1 MG Cap PO SCH (21:00)
[2020-12-06] MEDS: Melatonin 3 MG Tab PO SCH (21:00)
[2020-12-06] MEDS: atorvaSTATin 20 MG Tab PO SCH (21:01)
[2020-12-06] MEDS: Aspirin 325 MG Tab.EC PO SCH (21:01)
[2020-12-07 07:32] VITALS: BP 136/68; PULSE 72
[2020-12-07] MEDS: Pantoprazole 40 MG Tab.CR PO SCH (07:34)
[2020-12-07] MEDS: Levothyroxine 100 MCG, Levothyroxine 50 MCG, Levothyroxine 25 MCG PO SCH ×3 (07:34)
[2020-12-07] MEDS: FLUoxetine 20 MG Cap PO SCH (08:27)
[2020-12-07] MEDS: Dexamethasone 2 MG Tab PO SCH (08:27)
[2020-12-07] MEDS: levETIRAcetam 250 MG Tab PO SCH (08:27)
[2020-12-07] MEDS: Cyanocobalamin (Vitamin B12) 1,000 MCG Tab PO SCH (08:27)
[2020-12-07] MEDS: Propranolol 60 MG Cap.ER PO SCH (08:28)
[2020-12-07] MEDS: Insulin Lispro 100 Unit/ML 3 ML KwikPen SUBCUT SCH (08:28)
[2020-12-07] MEDS: Insulin Glargine,Human Rec. Analog 100 Units/ML 3 ML Pen SUBCUT SCH (08:28)
== END 2020-12-07 09:20 | DRG 100 ==
LOC: JP.ED 05:57 → JP.MS 12:27
PROVIDERS: ADMIT Internal Medicine; ATTEND Hospitalist
DX: R56.9 Unspecified convulsions (principal); I61.9 Nontraumatic intracerebral hemorrhage, unspecified; G93.6 Cerebral edema; C71.1 Malignant neoplasm of frontal lobe; K21.9 Gastro-esophageal reflux disease without esophagitis; F11.20 Opioid dependence, uncomplicated; E11.65 Type 2 diabetes mellitus with hyperglycemia; R41.89 Other symptoms and signs involving cognitive functions and awareness; E11.40 Type 2 diabetes mellitus with diabetic neuropathy, unspecified; H54.7 Unspecified visual loss; Z85.841 Personal history of malignant neoplasm of brain; E78.00 Pure hypercholesterolemia, unspecified; J45.909 Unspecified asthma, uncomplicated; E11.42 Type 2 diabetes mellitus with diabetic polyneuropathy; F98.8 Other specified behavioral and emotional disorders with onset usually occurring in childhood and adolescence; F41.9 Anxiety disorder, unspecified; F17.210 Nicotine dependence, cigarettes, uncomplicated; F32.9 Major depressive disorder, single episode, unspecified; F43.10 Post-traumatic stress disorder, unspecified; E03.9 Hypothyroidism, unspecified; Z90.710 Acquired absence of both cervix and uterus; Z98.890 Other specified postprocedural states; Z86.010 Personal history of colon polyps; Z79.4 Long term (current) use of insulin; Z79.82 Long term (current) use of aspirin; Z79.899 Other long term (current) drug therapy; Z88.8 Allergy status to other drugs, medicaments and biological substances; Z79.890 Hormone replacement therapy; Z86.73 Personal history of transient ischemic attack (TIA), and cerebral infarction without residual deficits
CPT/HCPCS: 36415; 70450; 80048; 80053; 80143; 80177; 80179; 80305; 81001; 85025; 96365; 99285 ×2; J1815 ×2; J1953; J7050; J7120; 82947; 85027; 97110-GP; 97140-GP; 97163-GP; 97530-GP; 97535-GP; A9270-GY; J2060; J7030; J8540